=== PATIENT | female | born 1965 | race Caucasian/White ===

== ENCOUNTER → 2016-11-08 | Outpatient (CLI) | payer OTHER ==
[~2016-11-08] MED LIST: BUPR75TA4 PO
[2016-11-08 08:59] LABS: Basophils # (auto) 0.1 uL; Basophils % (auto) 0.8 % (0.0-2.0); Eosinophils # (auto) 0.4 uL; Eosinophils % (auto) 5.1 % (0.0-7.0); Hematocrit 42.1 % (36.0-46.0); Hemoglobin 14.3 g/dL (12.2-16.2); Lymphocytes # (auto) 0.9 uL; Mean Corpuscular Hemoglobin 30.3 pg (28.0-32.0); Mean Corpuscular Volume 89.1 fL (80.0-100.0); Mean Platelet Volume 7.9 fL (7.4-10.4); Monocytes # (auto) 0.6 uL; Monocytes % (auto) 7.6 % (0.0-12.0); Neutrophils # (auto) 5.7 uL; Neutrophils % (auto) 74.5 % (37.0-80.0); Platelet Count (auto) 343 10^3/uL (140-450); Red Cell Distribution Width 12.4 % (11.6-16.0); White Blood Cell 7.6 10^3/uL (4.4-10.8)
[2016-11-08 09:11] LABS: Albumin 3.8 g/dL (3.4-5.0); BUN/Creatinine Ratio 22.4; Bilirubin, Total 0.6 mg/dL (0.2-1.0); Calcium 9.5 mg/dL (8.5-10.1); Potassium 3.9 mmol/L (3.5-5.1); Total Protein 7.6 g/dL (6.4-8.2)
== END | disposition home or self-care (01) ==
LOC: LAB 07:34
PROVIDERS: ATTEND Physician Assistant
DX: N39.0 Urinary tract infection, site not specified (principal); N20.0 Calculus of kidney; R31.9 Hematuria, unspecified; E55.9 Vitamin D deficiency, unspecified
CPT/HCPCS: 36415; 80053; 80061; 82306; 82607; 83036; 84443; 85025; 85049

== ENCOUNTER → 2016-11-10 | Outpatient (CLI) | payer OTHER ==
[2016-11-10 15:06] LABS: Albumin 3.9 g/dL (3.4-5.0); Bilirubin, Direct 0.3 mg/dL (0-0.2); Bilirubin, Total 0.7 mg/dL (0.2-1.0); Total Protein 7.8 g/dL (6.4-8.2)
== END | disposition home or self-care (01) ==
LOC: LAB 14:17
PROVIDERS: ATTEND Physician Assistant
DX: R74.8 Abnormal levels of other serum enzymes (principal); N20.0 Calculus of kidney; N13.30 Unspecified hydronephrosis; E55.9 Vitamin D deficiency, unspecified
CPT/HCPCS: 36415; 80074; 80076

== ENCOUNTER 2018-11-12 13:51 | Emergency (ER) | payer OTHER ==
[~2018-11-12] VITALS: Ht 175.3 cm; Wt 113.4 kg
[2018-11-12 14:00] VITALS: BP 136/68
[2018-11-12 14:33] LABS: Basophils # (auto) 0.1 uL; Basophils % (auto) 1.3 % (0.0-2.0); Eosinophils # (auto) 0.2 uL; Eosinophils % (auto) 3.2 % (0.0-7.0); Hematocrit 41.6 % (36.0-46.0); Hemoglobin 14.2 g/dL (12.2-16.2); Lymphocytes # (auto) 2.1 uL; Lymphocytes % (auto) 27.9 % (10.0-50.0); Mean Corpuscular Hemoglobin 30.2 pg (28.0-32.0); Mean Corpuscular Volume 88.6 fL (80.0-100.0); Monocytes # (auto) 0.5 uL; Monocytes % (auto) 7.1 % (0.0-12.0); Neutrophils # (auto) 4.5 uL; Neutrophils % (auto) 60.5 % (37.0-80.0); Platelet Count (auto) 304 10^3/uL (140-450); Red Blood Cells 4.69 10^6/uL (4.0-5.20); Red Cell Distribution Width 12.6 % (11.8-14.3); White Blood Cell 7.5 10^3/uL (4.4-10.8)
[2018-11-12 14:54] LABS: Albumin 3.5 g/dL (3.4-5.0); Anion Gap 5 (5-15); Blood Urea Nitrogen 15 mg/dL (7-18); Calcium 8.8 mg/dL (8.5-10.1); Carbon Dioxide 27 mmol/L (21-32); Chloride 109 mmol/L (98-107); Glucose 85 mg/dL (74-106); Potassium 3.8 mmol/L (3.5-5.1); Sodium 141 mmol/L (136-145)
[2018-11-12 15:01] LABS: Alanine Aminotransferase 31 U/L (13-56); Alkaline Phosphatase 97 U/L (45-117); Aspartate Aminotransferase 15 U/L (15-37); Bilirubin, Total 0.4 mg/dL (0.2-1.0); GFR African American 86 mL/min; GFR Non-African American 71 mL/min
[2018-11-12] MEDS ORDERED: ASPirin 81 mg TAB PO ONE ×2 (17:15)
== END 2018-11-12 22:33 | disposition left against medical advice (07) ==
LOC: ER 13:51 → MERGE 13:51 → ER 22:33
DX: R07.89 Other chest pain (principal); F17.210 Nicotine dependence, cigarettes, uncomplicated; F41.9 Anxiety disorder, unspecified; Z88.0 Allergy status to penicillin; Z53.29 Procedure and treatment not carried out because of patient's decision for other reasons
CPT/HCPCS: 36415; 71046; 80053; 83735; 84443; 84484; 85025; 85379; 93005; 94761

== ENCOUNTER → 2019-06-29 | Outpatient (CLI) | payer OTHER ==
[2019-06-29 07:48] LABS: Basophils # (auto) 0.1 uL; Basophils % (auto) 1.2 % (0.0-2.0); Eosinophils # (auto) 0.3 uL; Eosinophils % (auto) 5.1 % (0.0-7.0); Hematocrit 41.6 % (36.0-46.0); Hemoglobin 14.3 g/dL (12.2-16.2); Lymphocytes # (auto) 1.3 uL; Lymphocytes % (auto) 23.5 % (10.0-50.0); Mean Corpuscular Hemoglobin 30.8 pg (28.0-32.0); Mean Corpuscular Hgb Conc. 34.5 g/dL (32.0-36.0); Mean Corpuscular Volume 89.3 fL (80.0-100.0); Monocytes # (auto) 0.4 uL; Monocytes % (auto) 7.5 % (0.0-12.0); Neutrophils # (auto) 3.4 uL; Neutrophils % (auto) 62.7 % (37.0-80.0); Nucleated Red Blood Cells % 0.1 %; Platelet Count (auto) 259 10^3/uL (140-450); Red Blood Cells 4.66 10^6/uL (4.0-5.20); White Blood Cell 5.5 10^3/uL (4.4-10.8)
[2019-06-29 08:17] LABS: Potassium 4.9 mmol/L (3.5-5.1)
[2019-06-29 08:27] LABS: Albumin 3.5 g/dL (3.4-5.0); BUN/Creatinine Ratio 15.8; Bilirubin, Total 0.4 mg/dL (0.2-1.0); Calcium 9.2 mg/dL (8.5-10.1)
== END | disposition home or self-care (01) ==
LOC: LAB 07:19
PROVIDERS: ATTEND Physician Assistant
DX: E55.9 Vitamin D deficiency, unspecified (principal); E78.2 Mixed hyperlipidemia; R53.83 Other fatigue; R74.8 Abnormal levels of other serum enzymes; N13.30 Unspecified hydronephrosis; N18.3 Chronic kidney disease, stage 3 (moderate)
CPT/HCPCS: 36415; 80053; 80061; 82306; 85025

== ENCOUNTER → 2020-12-10 | Outpatient (CLI) | payer OTHER ==
[2020-12-10 08:01] LABS: Basophils # (auto) 0.1 10 ^3/uL (0-0.2); Basophils % (auto) 1.1 % (0.0-2.0); Eosinophils # (auto) 0.5 10 ^3/uL (0-0.8); Eosinophils % (auto) 7.7 % (0.0-7.0); Hematocrit 40.7 % (36.0-46.0); Hemoglobin 14.3 g/dL (12.2-16.2); Lymphocytes # (auto) 1.6 10 ^3/uL (0.4-5.4); Lymphocytes % (auto) 24.1 % (10.0-50.0); Mean Corpuscular Hemoglobin 31.1 pg (28.0-32.0); Mean Corpuscular Hgb Conc. 35.2 g/dL (32.0-36.0); Mean Corpuscular Volume 88.3 fL (80.0-100.0); Monocytes # (auto) 0.5 10 ^3/uL (0-1.3); Monocytes % (auto) 8.3 % (0.0-12.0); Neutrophils # (auto) 3.8 10 ^3/uL (1.6-8.6); Neutrophils % (auto) 58.8 % (37.0-80.0); Nucleated Red Blood Cells % 0.1 %; Platelet Count (auto) 266 10^3/uL (140-450); Red Blood Cells 4.61 10^6/uL (4.0-5.20); Red Cell Distribution Width 13.3 % (11.8-14.3); White Blood Cell 6.4 10^3/uL (4.4-10.8)
[2020-12-10 08:29] LABS: Albumin 3.5 g/dL (3.4-5.0); Calcium 8.6 mg/dL (8.5-10.1); Potassium 4.2 mmol/L (3.5-5.1)
[2020-12-10 08:33] LABS: BUN/Creatinine Ratio 19.1; Bilirubin, Total 0.5 mg/dL (0.2-1.0); Total Protein 7.6 g/dL (6.4-8.2)
== END | disposition home or self-care (01) ==
LOC: LAB 07:42
PROVIDERS: ATTEND Physician Assistant
DX: E78.2 Mixed hyperlipidemia (principal); E55.9 Vitamin D deficiency, unspecified; R74.8 Abnormal levels of other serum enzymes; E66.01 Morbid (severe) obesity due to excess calories; N18.30 Chronic kidney disease, stage 3 unspecified
CPT/HCPCS: 36415; 80053; 80061; 82306; 85025

== ENCOUNTER → 2021-09-18 | Outpatient (CLI) | payer OTHER | END | disposition home or self-care (01) | LOC: XY 07:41 | PROVIDERS: ATTEND Internal Medicine | DX: R07.89 Other chest pain (principal); I45.10 Unspecified right bundle-branch block; R60.0 Localized edema; R63.8 Other symptoms and signs concerning food and fluid intake | CPT/HCPCS: 78452; 93017; A9500 ==

== ENCOUNTER 2021-11-30 13:46 | Inpatient (IN) | payer OTHER ==
[~2021-11-30] VITALS: Ht 175.3 cm; Wt 131.5 kg
[2021-11-30 15:05] LABS: Basophils # (auto) 0.1 10 ^3/uL (0-0.2); Basophils % (auto) 1.4 % (0.0-2.0); Eosinophils # (auto) 0.3 10 ^3/uL (0-0.8); Eosinophils % (auto) 3.8 % (0.0-7.0); Hemoglobin 14.1 g/dL (12.2-16.2); Lymphocytes # (auto) 1.8 10 ^3/uL (0.4-5.4); Lymphocytes % (auto) 25.2 % (10.0-50.0); Mean Corpuscular Hemoglobin 30.4 pg (28.0-32.0); Mean Corpuscular Hgb Conc. 34.3 g/dL (32.0-36.0); Mean Corpuscular Volume 88.6 fL (80.0-100.0); Monocytes # (auto) 0.5 10 ^3/uL (0-1.3); Monocytes % (auto) 7.5 % (0.0-12.0); Neutrophils # (auto) 4.4 10 ^3/uL (1.6-8.6); Neutrophils % (auto) 62.1 % (37.0-80.0); Red Blood Cells 4.62 10^6/uL (4.0-5.20); Red Cell Distribution Width 13.3 % (11.8-14.3); White Blood Cell 7.1 10^3/uL (4.4-10.8)
[2021-11-30 15:27] LABS: Albumin 3.7 g/dL (3.4-5.0); Calcium 9.7 mg/dL (8.5-10.1); Potassium 3.6 mmol/L (3.5-5.1)
[2021-11-30 15:34] LABS: Bilirubin, Total 0.4 mg/dL (0.2-1.0); Total Protein 7.3 g/dL (6.4-8.2)
[2021-11-30] MEDS ORDERED: TEMAZEPAM 15 MG CAP PO PRN (22:30)
[2021-11-30] MEDS ORDERED: ONDANSETRON HCL 4 MG/2 ML VIAL IV PRN (22:30)
[2021-11-30] MEDS ORDERED: NITROGLYCERIN 0.4 MG SL TAB SL PRN (22:30)
[2021-11-30] MEDS ORDERED: ACETAMINOPHEN 325 MG TAB PO PRN (22:30)
[2021-12-01] VITALS (7 sets, daily range): BP systolic 102–139; BP diastolic 52–71
[2021-12-01] MEDS: MORPHINE SULFATE INJECTION 2 MG/ML SYRG IV PRN ×2 (02:02→06:32)
[2021-12-01 06:47] LABS: Potassium 3.7 mmol/L (3.5-5.1)
[2021-12-01 06:52] LABS: Basophils # (auto) 0.1 10 ^3/uL (0-0.2); Basophils % (auto) 1.2 % (0.0-2.0); Eosinophils # (auto) 0.3 10 ^3/uL (0-0.8); Eosinophils % (auto) 4.1 % (0.0-7.0); Hematocrit 39.8 % (36.0-46.0); Hemoglobin 13.6 g/dL (12.2-16.2); Lymphocytes # (auto) 1.9 10 ^3/uL (0.4-5.4); Lymphocytes % (auto) 27.9 % (10.0-50.0); Mean Corpuscular Hemoglobin 30.3 pg (28.0-32.0); Mean Corpuscular Hgb Conc. 34.1 g/dL (32.0-36.0); Mean Corpuscular Volume 88.9 fL (80.0-100.0); Monocytes # (auto) 0.5 10 ^3/uL (0-1.3); Neutrophils # (auto) 3.9 10 ^3/uL (1.6-8.6); Neutrophils % (auto) 58.8 % (37.0-80.0); Nucleated Red Blood Cells % 0.1 %; Red Blood Cells 4.48 10^6/uL (4.0-5.20); Red Cell Distribution Width 13.4 % (11.8-14.3); White Blood Cell 6.7 10^3/uL (4.4-10.8)
[2021-12-01 06:55] LABS: BUN/Creatinine Ratio 24.4
[2021-12-01] MEDS: HCTZ 25 MG TAB PO SCH (08:54)
[2021-12-01] MEDS: ASPirin 81 mg TAB PO SCH (08:54)
[2021-12-01] MEDS: PANTOPRAZOLE 40 MG TAB PO SCH (08:55)
[2021-12-01] MEDS: ENOXAPARIN SOD 40 MG/0.4 ML SYRINGE SC SCH (08:55)
[2021-12-01] MEDS: RANOLAZINE ER 500 MG TAB PO SCH ×2 (08:55→22:00)
[2021-12-01] MEDS ORDERED: ATORVASTATIN 20 MG TAB PO SCH (22:00)
[2021-12-02 03:15] LABS: Urine Bacteria NONE SEEN /hpf (None Seen); Urine Blood 2+ /uL (Negative); Urine Hyaline Cast FEW /lpf (0 - 2); Urine Mucus FEW (None Seen); Urine Specific Gravity 1.016 (1.001-1.035); Urine WBC 493 /hpf (0 - 5); Urine WBC Clumps PRESENT /hpf (None Seen)
[2021-12-02 05:16] VITALS: BP 129/56
[2021-12-02 06:02] LABS: Basophils # (auto) 0.1 10 ^3/uL (0-0.2); Basophils % (auto) 1.1 % (0.0-2.0); Eosinophils # (auto) 0.2 10 ^3/uL (0-0.8); Eosinophils % (auto) 3.8 % (0.0-7.0); Hematocrit 42.6 % (36.0-46.0); Hemoglobin 14.2 g/dL (12.2-16.2); Lymphocytes # (auto) 1.7 10 ^3/uL (0.4-5.4); Lymphocytes % (auto) 32.8 % (10.0-50.0); Mean Corpuscular Hemoglobin 29.8 pg (28.0-32.0); Mean Corpuscular Hgb Conc. 33.2 g/dL (32.0-36.0); Mean Corpuscular Volume 89.6 fL (80.0-100.0); Monocytes # (auto) 0.4 10 ^3/uL (0-1.3); Monocytes % (auto) 7.6 % (0.0-12.0); Neutrophils # (auto) 2.9 10 ^3/uL (1.6-8.6); Neutrophils % (auto) 54.7 % (37.0-80.0); Nucleated Red Blood Cells % 0.1 %; Red Blood Cells 4.75 10^6/uL (4.0-5.20); Red Cell Distribution Width 13.3 % (11.8-14.3); White Blood Cell 5.3 10^3/uL (4.4-10.8)
[2021-12-02 06:25] LABS: INR 1.01 (0.9-1.15); Partial Thromboplastin Time 33.9 sec (23.6-33.0)
[2021-12-02 06:35] LABS: Calcium 8.8 mg/dL (8.5-10.1); Potassium 3.8 mmol/L (3.5-5.1)
[2021-12-02 06:38] LABS: BUN/Creatinine Ratio 19.6
[2021-12-02] MEDS: HCTZ 25 MG TAB PO SCH (08:46)
[2021-12-02] MEDS: ASPirin 81 mg TAB PO SCH (08:46)
[2021-12-02] MEDS: RANOLAZINE ER 500 MG TAB PO SCH (08:46)
[2021-12-02 09:00] VITALS: BP 120/90
[2021-12-02] MEDS ORDERED: HEPARIN SODIUM (PORCINE) 5000 UNITS/ML 1ML VIAL ONE (10:01)
[2021-12-02] MEDS ORDERED: ANGIOMAX 250 MG VIAL IV ONE (10:01)
[2021-12-02] MEDS ORDERED: VERAPAMIL 2.5MG/ML INJ 2ML VIAL IV ONE (10:01)
[2021-12-02] MEDS ORDERED: fentaNYL CITRATE 100 MCG/2 ML VL ONE (10:02)
[2021-12-02] MEDS ORDERED: MIDAZOLAM HCL 2MG/2ML 2ml VIAL (1mg/ml) ONE (10:02)
[2021-12-02] MEDS ORDERED: SODIUM CHL 0.9% 0 ML ONE (10:02)
[2021-12-02] MEDS ORDERED: LIDOCAINE 2%HCL (LOCAL ANESTH.) INJ 20ML MDV ONE (10:12)
[2021-12-02 12:01] VITALS: BP 121/54
[2021-12-02] MEDS: ENOXAPARIN SOD 40 MG/0.4 ML SYRINGE SC SCH (12:17)
[2021-12-02] MEDS: PANTOPRAZOLE 40 MG TAB PO SCH (12:17)
[2021-12-02 12:58] VITALS: BP 121/59
[2021-12-02 14:00] VITALS: BP 109/66
[2021-12-02 15:01] VITALS: BP 126/53
[2021-12-02] MEDS ORDERED: ATOR20TA50 PO (17:40)
== END 2021-12-02 19:00 | disposition home or self-care (01) | DRG 287 ==
LOC: ER 13:49 → TELE 22:30 → TELE-WESTW 23:54
PROVIDERS: ADMIT Nurse Practitioner; ATTEND Internal Medicine
PROC: 4A023N7 Measurement of Cardiac Sampling and Pressure, Left Heart, Percutaneous Approach (ICD-10-PCS; principal; 2021-12-02)
PROC: B211YZZ Fluoroscopy of Multiple Coronary Arteries using Other Contrast (ICD-10-PCS; 2021-12-02)
PROC: B215YZZ Fluoroscopy of Left Heart using Other Contrast (ICD-10-PCS; 2021-12-02)
DX: I20.0 Unstable angina (principal); Z68.41 Body mass index [BMI] 40.0-44.9, adult; E66.01 Morbid (severe) obesity due to excess calories; F17.210 Nicotine dependence, cigarettes, uncomplicated; Z20.822 Contact with and (suspected) exposure to COVID-19; I10 Essential (primary) hypertension; Z88.0 Allergy status to penicillin; Z71.3 Dietary counseling and surveillance
CPT/HCPCS: 36415; 71045; 80048; 80053; 81001; 81025; 83880; 84484; 85025; 85379; 85610; 85730; 86850; 86900; 86901; 87426; 93005; 93306; 99152; G0378; J2250

== ENCOUNTER 2022-07-27 06:13 | Day surgery (SDC) | payer OTHER ==
[2022-07-22 11:32] LABS: Basophils # (auto) 0.1 10 ^3/uL (0-0.2); Eosinophils # (auto) 0.3 10 ^3/uL (0-0.8); Eosinophils % (auto) 4.9 % (0.0-7.0); Hematocrit 41.5 % (36.0-46.0); Hemoglobin 13.9 g/dL (12.2-16.2); Lymphocytes # (auto) 1.6 10 ^3/uL (0.4-5.4); Lymphocytes % (auto) 26.6 % (10.0-50.0); Mean Corpuscular Hemoglobin 29.9 pg (28.0-32.0); Mean Corpuscular Hgb Conc. 33.4 g/dL (32.0-36.0); Mean Corpuscular Volume 89.4 fL (80.0-100.0); Monocytes # (auto) 0.6 10 ^3/uL (0-1.3); Monocytes % (auto) 10.3 % (0.0-12.0); Neutrophils # (auto) 3.5 10 ^3/uL (1.6-8.6); Neutrophils % (auto) 57.2 % (37.0-80.0); Red Blood Cells 4.64 10^6/uL (4.0-5.20); White Blood Cell 6.1 10^3/uL (4.4-10.8)
[2022-07-22 11:42] LABS: Urine Bacteria NONE SEEN /hpf (None Seen); Urine Blood 2+ /uL (Negative); Urine Mucus FEW (None Seen); Urine Specific Gravity 1.017 (1.001-1.035); Urine WBC 606 /hpf (0 - 5); Urine WBC Clumps PRESENT /hpf (None Seen)
[2022-07-22 11:50] LABS: Albumin 3.5 g/dL (3.4-5.0); BUN/Creatinine Ratio 19.4; Bilirubin, Total 0.5 mg/dL (0.2-1.0); Calcium 9.2 mg/dL (8.5-10.1); Total Protein 6.8 g/dL (6.4-8.2)
[2022-07-22 12:20] LABS: INR 0.96 (0.9-1.15); Partial Thromboplastin Time 33.6 sec (24.6-33.4)
[~2022-07-27] VITALS: Ht 175.3 cm; Wt 131.5 kg
[~2022-07-27 06:13] MED LIST changes: +ASPI81CH59 PO; +ATOR20TA50 PO; -BUPR75TA4 PO; +CARB1CAP10 PO; +DILT120T8 PO; +IBUP800T27 PO; +MELO1TAB56 PO; +OMEP20TA PO; +RANO1000 PO; +SPIR25TA8 PO
[2022-07-27] MEDS ORDERED: BUPIVACAINE W/ EPINEPH 0.25% INJ 50ML MDV ONE (06:47)
[2022-07-27] MEDS ORDERED: EPINEPHrine HCL 1 MG/1 ML AMP ONE (06:47)
[2022-07-27] MEDS ORDERED: CLINDAMYCIN 900MG IV 50 ML IV ONE (07:12)
[2022-07-27] MEDS ORDERED: SUCCINYLCHOLINE CHLORIDE 20 MG/ML 10ML VIAL IV ONE (07:23)
[2022-07-27] MEDS ORDERED: DOXAPRAM HCL 20 MG/ML 20ML VIAL INJ IV ONE (07:23)
[2022-07-27] MEDS ORDERED: ROCURONIUM 10MG/ML 10ML VIAL IV ONE (07:23)
[2022-07-27] MEDS ORDERED: SODIUM CHLORIDE LOCK 10 ML ONE (07:25)
[2022-07-27] MEDS ORDERED: DexAMETHasone SOD PHOS 10MG/1ML VIAL INJ ONE (07:25)
[2022-07-27] MEDS ORDERED: MIDAZOLAM HCL 2MG/2ML 2ml VIAL (1mg/ml) ONE (07:25)
[2022-07-27] MEDS ORDERED: PROPOFOL 10 MG/ML 20 ML IV ONE (07:25)
[2022-07-27] MEDS ORDERED: fentaNYL CITRATE 100 MCG/2 ML VL ONE (07:25)
[2022-07-27] MEDS ORDERED: ONDANSETRON HCL 4 MG/2 ML VIAL ONE (07:25)
[2022-07-27] MEDS ORDERED: MORPHINE SULFATE 4 MG/ML SYR/VIAL IV PRN (07:45)
[2022-07-27] MEDS ORDERED: METOCLOPRAMIDE HCL 5MG/ml INJ 2ml VIAL IV PRN (07:45)
[2022-07-27] MEDS ORDERED: HYDROmorphone HCL 2 MG/ML VL/or syr IV PRN (07:45)
[2022-07-27] MEDS ORDERED: KETOROLAC TROMETH 60MG/2ML VIAL ONE (08:11)
[2022-07-27] MEDS ORDERED: LIDOCAINE HCL (LOCAL ANESTH.) 0.5 % 50ML MDV IJ ONE (08:56)
[2022-07-27] MEDS: HYDROmorphone HCL 2 MG/ML VL/or syr IV PRN ×4 (09:09→10:04)
[2022-07-27 10:00] VITALS: BP 127/70
== END 2022-07-27 10:22 | disposition home or self-care (01) ==
LOC: SUR 06:13
PROVIDERS: ATTEND Orthopaedic Surgery Sports Medicine
DX: S83.231A Complex tear of medial meniscus, current injury, right knee, initial encounter (principal); S83.281A Other tear of lateral meniscus, current injury, right knee, initial encounter; M17.5 Other unilateral secondary osteoarthritis of knee; M94.261 Chondromalacia, right knee; Z87.891 Personal history of nicotine dependence; F41.9 Anxiety disorder, unspecified; Z98.891 History of uterine scar from previous surgery; X58.XXXA Exposure to other specified factors, initial encounter; Y93.89 Activity, other specified; Y92.89 Other specified places as the place of occurrence of the external cause; Y99.8 Other external cause status
CPT/HCPCS: 29880; 36415; 80053; 81001; 85025; 85610; 85730; J0171; J0330; J1100; J1170; J1885; J2250; J2405; J2704; J3010; J3490; U0003

== ENCOUNTER → 2022-08-27 | Outpatient (CLI) | payer OTHER ==
[2022-08-27 07:40] LABS: Basophils # (auto) 0.1 10 ^3/uL (0-0.2); Basophils % (auto) 0.9 % (0.0-2.0); Eosinophils # (auto) 0.2 10 ^3/uL (0-0.8); Eosinophils % (auto) 3.3 % (0.0-7.0); Hematocrit 41.6 % (36.0-46.0); Hemoglobin 13.8 g/dL (12.2-16.2); Lymphocytes # (auto) 1.5 10 ^3/uL (0.4-5.4); Lymphocytes % (auto) 21.8 % (10.0-50.0); Mean Corpuscular Hemoglobin 30.3 pg (28.0-32.0); Mean Corpuscular Hgb Conc. 33.3 g/dL (32.0-36.0); Mean Corpuscular Volume 91.1 fL (80.0-100.0); Monocytes # (auto) 0.6 10 ^3/uL (0-1.3); Monocytes % (auto) 8.2 % (0.0-12.0); Neutrophils # (auto) 4.5 10 ^3/uL (1.6-8.6); Neutrophils % (auto) 65.8 % (37.0-80.0); Nucleated Red Blood Cells % 0.1 %; Red Blood Cells 4.56 10^6/uL (4.0-5.20); White Blood Cell 6.9 10^3/uL (4.4-10.8)
[2022-08-27 08:04] LABS: Albumin 3.3 g/dL (3.4-5.0); BUN/Creatinine Ratio 19.4; Calcium 9.2 mg/dL (8.5-10.1); Potassium 4.4 mmol/L (3.5-5.1)
[2022-08-27 08:07] LABS: Bilirubin, Total 0.6 mg/dL (0.2-1.0)
== END | disposition home or self-care (01) ==
LOC: LAB 07:27
PROVIDERS: ATTEND Nurse Practitioner Family
DX: Z00.00 Encounter for general adult medical examination without abnormal findings (principal); I10 Essential (primary) hypertension; E66.01 Morbid (severe) obesity due to excess calories
CPT/HCPCS: 36415; 80053; 80061; 85025

== ENCOUNTER 2023-01-24 11:54 | Emergency (ER) | payer OTHER ==
[~2023-01-24] VITALS: Ht 175.3 cm; Wt 136.0 kg
[2023-01-24 13:14] VITALS: BP 151/67
[2023-01-24] MEDS ORDERED: BACDST PO (13:29)
[2023-01-24] MEDS ORDERED: ACET1CAP14 PO (13:29)
[2023-01-24] MEDS ORDERED: ACETAMINOPHEN 500 MG TAB PO ONE (13:30)
[2023-01-24] MEDS ORDERED: TETANUS-DIPTH-ACEL PERTUSSIS 0.5ML SYR Tdap IM ONE (13:30)
== END 2023-01-24 14:05 | disposition home or self-care (01) ==
LOC: ER 11:54
DX: S61.211A Laceration without foreign body of left index finger without damage to nail, initial encounter (principal); I10 Essential (primary) hypertension; E78.5 Hyperlipidemia, unspecified; F17.210 Nicotine dependence, cigarettes, uncomplicated; Z79.82 Long term (current) use of aspirin; Z79.1 Long term (current) use of non-steroidal anti-inflammatories (NSAID); Z79.899 Other long term (current) drug therapy; Z88.0 Allergy status to penicillin; W26.0XXA Contact with knife, initial encounter; Y93.89 Activity, other specified; Y92.89 Other specified places as the place of occurrence of the external cause; Y99.8 Other external cause status
CPT/HCPCS: 12001; 73130; 90471; 90715

== ENCOUNTER → 2023-06-06 | Outpatient (CLI) | payer OTHER ==
[~2023-06-06] MED LIST changes: +ACET1CAP14 PO; +BACDST PO; +CARB1CAP PO; -CARB1CAP10 PO; +IBUP-1456 PO; -IBUP800T27 PO; +MELO-335 PO; -MELO1TAB56 PO
== END | disposition home or self-care (01) ==
LOC: XYW 08:41
PROVIDERS: ATTEND Student in an Organized Health Care Education/Training Program
DX: R07.9 Chest pain, unspecified (principal)
CPT/HCPCS: 93306

== ENCOUNTER → 2023-08-26 | Outpatient (CLI) | payer OTHER ==
[2023-08-26 11:41] LABS: Basophils # (auto) 0.1 10 ^3/uL (0-0.2); Basophils % (auto) 0.7 % (0.0-2.0); Eosinophils # (auto) 0.3 10 ^3/uL (0-0.8); Hematocrit 42.4 % (36.0-46.0); Hemoglobin 14.2 g/dL (12.2-16.2); Lymphocytes # (auto) 1.9 10 ^3/uL (0.4-5.4); Lymphocytes % (auto) 24.8 % (10.0-50.0); Mean Corpuscular Hemoglobin 30.8 pg (28.0-32.0); Mean Corpuscular Hgb Conc. 33.5 g/dL (32.0-36.0); Mean Corpuscular Volume 92.2 fL (80.0-100.0); Monocytes # (auto) 0.8 10 ^3/uL (0-1.3); Monocytes % (auto) 10.1 % (0.0-12.0); Neutrophils # (auto) 4.7 10 ^3/uL (1.6-8.6); Neutrophils % (auto) 60.4 % (37.0-80.0); Red Cell Distribution Width 13.3 % (11.8-14.3); White Blood Cell 7.7 10^3/uL (4.4-10.8)
[2023-08-26 12:14] LABS: Alanine Aminotransferase 42 U/L (7-40); Albumin 4.6 g/dL (3.2-4.8); Alkaline Phosphatase 102 U/L (46-116); Anion Gap 5 (5-15); Aspartate Aminotransferase 19 U/L (13-40); BUN/Creatinine Ratio 17.7 (10.0-20.0); Bilirubin, Total 0.5 mg/dL (0.2-1.0); Blood Urea Nitrogen 17 mg/dL (9-23); Calcium 9.6 mg/dL (8.5-10.1); Carbon Dioxide 28 mmol/L (20-30); Chloride 108 mmol/L (98-107); Cholesterol 175 mg/dL (< 200); Glucose 88 mg/dL (74-106); HDL Cholesterol 39 mg/dL (40-59); LDL Cholesterol 112 mg/dL (< 100); Potassium 4.6 mmol/L (3.5-5.1); Sodium 141 mmol/L (136-145); Triglycerides 249 mg/dL (< 150)
== END | disposition home or self-care (01) ==
LOC: LAB 11:12
PROVIDERS: ATTEND Nurse Practitioner Family
DX: E66.01 Morbid (severe) obesity due to excess calories (principal); I10 Essential (primary) hypertension; E78.5 Hyperlipidemia, unspecified
CPT/HCPCS: 36415; 80053; 80061; 82306; 84439; 84443; 85025

== ENCOUNTER → 2024-04-27 | Outpatient (CLI) | payer OTHER ==
[~2024-04-27] MED LIST changes: -MELO-335 PO; +MELO15TA29 PO
[2024-04-27 10:49] LABS: Basophils # (auto) 0.1 10 ^3/uL (0-0.2); Basophils % (auto) 0.9 % (0.0-2.0); Eosinophils # (auto) 0.3 10 ^3/uL (0-0.8); Eosinophils % (auto) 4.4 % (0.0-7.0); Hematocrit 38.1 % (36.0-46.0); Hemoglobin 13.3 g/dL (12.2-16.2); Lymphocytes # (auto) 1.8 10 ^3/uL (0.4-5.4); Lymphocytes % (auto) 24.5 % (10.0-50.0); Mean Corpuscular Hemoglobin 31.6 pg (28.0-32.0); Mean Corpuscular Volume 90.4 fL (80.0-100.0); Monocytes # (auto) 0.6 10 ^3/uL (0-1.3); Monocytes % (auto) 8.4 % (0.0-12.0); Neutrophils # (auto) 4.6 10 ^3/uL (1.6-8.6); Neutrophils % (auto) 61.8 % (37.0-80.0); Nucleated Red Blood Cells % 0.1 %; Red Blood Cells 4.21 10^6/uL (4.0-5.20); Red Cell Distribution Width 13.8 % (11.8-14.3); White Blood Cell 7.4 10^3/uL (4.4-10.8)
[2024-04-27 11:23] LABS: Alanine Aminotransferase 46 U/L (7-40); Albumin 4.5 g/dL (3.2-4.8); Alkaline Phosphatase 99 U/L (46-116); Anion Gap 5 (5-15); Aspartate Aminotransferase 19 U/L (13-40); BUN/Creatinine Ratio 17.6 (10.0-20.0); Blood Urea Nitrogen 15 mg/dL (9-23); Calcium 9.5 mg/dL (8.5-10.1); Carbon Dioxide 24 mmol/L (20-30); Chloride 111 mmol/L (98-107); Glucose 101 mg/dL (74-106); Potassium 4.1 mmol/L (3.5-5.1); Sodium 140 mmol/L (136-145)
[2024-04-27 11:24] LABS: Bilirubin, Total 0.5 mg/dL (0.2-1.0); Total Protein 6.8 g/dL (5.7-8.2)
[2024-04-27 11:25] LABS: Erythrocyte Sedimentation Rate 12 mm/hr (0-20)
[2024-04-28 08:06] LABS: Complement C3 168 mg/dL (82-167); Rheumatoid Arthritis Factor <10.0 IU/mL (<14.0); Thyroid Peroxidase (TPO) Ab <9 IU/mL (0-34)
[2024-04-28 09:08] LABS: Anti-Nuclear Antibody Direct Negative (Negative); Anti-dsDNA Antibody <1 IU/mL (0-9); Antiscleroderma-70 Antibody <0.2 AI (0.0-0.9); RNP Antibody <0.2 AI (0.0-0.9); Sjogren's Anti-SS-A Antibody <0.2 AI (0.0-0.9); Sjogren's Anti-SS-B Antibody <0.2 AI (0.0-0.9); Smith Antibody <0.2 AI (0.0-0.9)
== END | disposition home or self-care (01) ==
LOC: LAB 10:32
PROVIDERS: ATTEND Nurse Practitioner Family
DX: R21 Rash and other nonspecific skin eruption (principal)
CPT/HCPCS: 36415; 80053; 85025; 85652; 86160; 86225; 86235; 86376; 86431; 87086

== ENCOUNTER → 2024-05-16 | Outpatient (CLI) | payer OTHER | END | disposition home or self-care (01) | LOC: LAB 09:42 | PROVIDERS: ATTEND Nurse Practitioner Family | DX: N39.0 Urinary tract infection, site not specified (principal) | CPT/HCPCS: 87086 ==

== ENCOUNTER 2024-09-23 10:44 | Inpatient (IN) | payer OTHER ==
[~2024-09-23] VITALS: Ht 175.3 cm; Wt 123.3 kg
[~2024-09-23 10:44] MED LIST changes: +OMEP1CAP70 PO; +SEMA2INJ3 SC
[2024-09-23] MEDS ORDERED: KETOROLAC TROMETH 30 MG/ML 1ML VIAL IV ONE (11:00)
[2024-09-23] MEDS ORDERED: ONDANSETRON HCL 4 MG/2 ML VIAL IV ONE (11:00)
--- NOTE | 2024-09-23 11:03 | ED.PDOC ---
Musculoskeletal HPI Comments 58 year old female presents to the ED with chief complaint of leg swelling and pain. Patient reports she has been experience right lower leg swelling and pain, radiating down to her foot for the past week. Patient relays that she has history of varicose veins to bilateral legs, but has only had a procedure to remove some from the left leg. Patient states she has associated symptoms of headache and nausea. Patient notes she has history of Lupus, but this is not like any flare up she has had in the past. Patient denies any fall, injury, numbness, weakness, fever, chills, or SOB. Chief Complaint: Lower Extremity Time Seen by MD: 10:59 Primary Care Provider: jones Reviewed Notes: Nurses Notes, Medications, Allergies Allergies: Coded Allergies: Penicillins (Unverified Allergy, Unknown, 09/13/16) Home Meds Active Scripts Acetaminophen (Tylenol) 325 Mg Cap, 325 MG PO Q4HPRN PRN, #30 CAP 0 Refills Take 1-2 caps po q4h prn for pain. (Do not exceed 3,000mg of acetaminophen in 24 hours) Prov:[facility] 01/24/23 Sulfamethoxazole W/Trimethopri (Bactrim Ds Tablet) 1 Tab Tb, 1 TAB PO BID for 7 Days, #14 TAB 0 Refills Prov:[facility] 01/24/23 Atorvastatin Calcium (ATORVASTATIN CALCIUM) 20 Mg Tab, 20 MG PO HS for 30 Days, #30 TAB Prov:KEERTHI ALMANZAR MD 12/02/21 Reported Medications Spironolactone (Spironolactone) 25 Mg Tab, 25 MG PO DAILY, TAB 07/22/22 Omeprazole (Gnp Omeprazole) 20 Mg Tab, 20 MG PO DAILY, TAB 07/22/22 Ibuprofen (Ibuprofen) 800 Mg Tab, 800 MG PO Q8HP, TAB 07/22/22 Diltiazem Hcl (Cardizem) 120 Mg Tab, 120 MG PO DAILY, TAB 07/22/22 Carboxymethylcellulose-Cellulo (Plenity) 1 Cap Cap, 3 CAP PO AC, CAP 07/22/22 Meloxicam (Meloxicam) 15 Mg Tab, 15 MG PO DAILY, TAB 07/22/22 Aspirin (Aspirin Low Dose) 81 Mg Chw, 81 MG PO DAILY, TAB.CHEW 07/22/22 Ranolazine (Ranexa) 1,000 Mg Tab, 1000 MG PO BID, TAB 07/22/22 Information Source: Patient Mode of Arrival: Ambulatory Location: Right Extremity Location: Leg Timing: Weeks Prehospital treatment: None Severity: Moderate Able to Move Extremity: Yes Bear Weight: Fully Pain: Moderate Mechanism: Spontaneous Circumstances: Spontaneous Onset of Symptoms: Spontaneous Symptoms: Swelling, Pain DVT Risk Factors: NONE Last Tetanus: Unknown Associated signs and symptoms: Swelling, Leg pain Past Medical History PAST MEDICAL HISTORY: Arthritis, High Lipids, HTN Past Medical History (Other): Lupus Surgical History: Surgical History (Other): 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 left leg 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: 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 Family History Family History: Reviewed,noncontributory to illness Family History (Other): DVT Social History Smoker: Cigarettes Alcohol: Occasionally Drugs: Denies Drug Use Lives In: Home Constitutional: denies: chills, diaphoresis, fatigue, fever, malaise, sweats, weakness, others EENTM: denies: blurred vision, double vision, ear bleeding, ear discharge, ear drainage, ear pain, ear ringing, eye pain, eye redness, hearing loss, mouth pain, mouth swelling, nasal discharge, nose bleeding, nose congestion, nose pain, photophobia, tearing, throat pain, throat swelling, voice changes, others Respiratory: denies: cough, hemoptysis, orthopnea, SOB at rest, shortness of breath, SOB with excertion, stridor, wheezing, others Cardiovascular: denies: chest pain, dizzy spells, diaphoresis, Dyspnea on exertion, edema, irregular heart beat, left arm pain, lightheadedness, palpitations, PND, syncope, others Gastrointestinal: denies: abdomen distended, abdominal pain, blood streaked bowels, constipated, diarrhea, dysphagia, difficulty swallowing, hematemesis, melena, nausea, poor appetite, poor fluid intake, rectal bleeding, rectal pain, vomiting, others Genitourinary: denies: abnormal vagina bleeding, burning, dyspareunia, dysuria, flank pain, frequency, hematuria, incontinence, pain, , vagina discharge, urgency, others Neurological: denies: dizziness, fainting, headache, left sided numbness, left sided weakness, numbness, paresthesia, pre-existing deficit, right sided numbness, right sided weakness, seizure, speech problems, tingling, tremors, weakness, others Musculoskeletal: reports: others (Right lower leg swelling and pain); denies: back pain, gout, joint pain, joint swelling, muscle pain, muscle stiffness, neck pain Integumetry: denies: bruises, change in color, change in hair/nails, dryness, laceration, lesions, lumps, rash, wounds, others Allergic/Immunocompromised: denies: Difficulty Healing, Frequent Infections, Hives, Itching, others Hematologic/Lymphatic: denies: anemia, blood clots, easy bleeding, easy bruising, swollen glands, others Endocrine: denies: excessive hunger, excessive sweating, excessive thirst, excessive urination, flushing, intolerance to cold, intolerance to heat, unexplained weight gain, unexplained weight loss, others Psychiatric: denies: anxiety, bipolar disorder, depression, hopeless, panic disorder, schizophrenia, sleepless, suicidal, others All Other Systems: Reviewed and Negative Physical Exam General Appearance: Mild Distress, Obese HEENT: Other (Pupils symmetric, no facial asymmetry, moist mucous membranes) Neck: Full Range of Motion, Normal Inspection Respiratory: Lungs Clear, No Accessory Muscle Use, No Respiratory Distress, Normal Breath Sounds Cardiovascular: No JVD, Regular Rate/Rhythm Breast Exam: Deferred Gastrointestinal: Non Tender, Soft Genitalia: Deferred Pelvic: Deferred Rectal: Deferred Extremities: Normal capillary refill, Normal range of motion, Pedal edema (Bilateral, right greater than left), Other (Right leg prominent varicosities medial aspect with soft tissue tenderness. No erythema.) Musculoskeletal : Apperance: Normal Neurologic: Alert (Oriented x4), Normal Affect, Normal Mood, Other (Ambulatory without difficulty. No gross focal deficit.) Cerebellar Function: NOT DONE Reflexes: NOT DONE Skin: Dry, Normal Color, Warm Lymphatic: NOT DONE Was a procedure done? Was a procedure done?: No Differential Diagnosis EXT Differential Diagnosis: Cellulitis, Deep Vein Thrombosis Other Differential Diagnosis Superficial phlebitis, CHF, liver disease, hypovolemia, venous insufficiency, among others X-Ray, Labs, Meds, VS Vital Signs Date Time Temp Pulse Resp B/P (MAP) Pulse Ox O2 Delivery O2 Flow Rate FiO2 09/23/24 12:51 74 15 98 Room Air* 0 21 09/23/24 10:56 97.7 62 19 155/87 (109) 100 Lab Test 09/23/24 11:23 Range/Units White Blood Count 7.9 4.4-10.8 10^3/uL Red Blood Count 4.63 4.0-5.20 10^6/uL Hemoglobin 14.5 12.2-16.2 g/dL Hematocrit 41.9 36.0-46.0 % Mean Corpuscular Volume 90.4 80.0-100.0 fL Mean Corpuscular Hemoglobin 31.3 28.0-32.0 pg Mean Corpuscular Hemoglobin Concent 34.6 32.0-36.0 g/dL Red Cell Distribution Width 13.8 11.8-14.3 % Platelet Count 252 140-450 10^3/uL Mean Platelet Volume 7.6 6.9-10.8 fL Neutrophils (%) (Auto) 67.9 37.0-80.0 % Lymphocytes (%) (Auto) 19.5 10.0-50.0 % Monocytes (%) (Auto) 8.8 0.0-12.0 % Eosinophils (%) (Auto) 2.9 0.0-7.0 % Basophils (%) (Auto) 0.9 0.0-2.0 % Neutrophils # (Auto) 5.3 1.6-8.6 10 ^3/uL Lymphocytes # (Auto) 1.5 0.4-5.4 10 ^3/uL Monocytes # (Auto) 0.7 0-1.3 10 ^3/uL Eosinophils # (Auto) 0.2 0-0.8 10 ^3/uL Basophils # (Auto) 0.1 0-0.2 10 ^3/uL Nucleated Red Blood Cells 0.0 % Prothrombin Time 10.9 9.3-11.8 sec Prothrombin Time INR 1.03 0.9-1.15 Activated Partial Thromboplast Time 28.3 24.5-34.5 SEC Sodium Level 142 136-145 mmol/L Potassium Level 4.0 3.5-5.1 mmol/L Chloride Level 106 98-107 mmol/L Carbon Dioxide Level 30 20-31 mmol/L Anion Gap 6 5-15 Blood Urea Nitrogen 13 9-23 mg/dL Creatinine 0.86 0.550-1.02 mg/dL Glomerular Filtration Rate Calc 77 >90 mL/min BUN/Creatinine Ratio 15.1 10.0-20.0 Serum Glucose 92 74-106 mg/dL Calcium Level 10.4 8.7-10.4 mg/dL Troponin I High Sensitivity 9 </=34 ng/L B-Type Natriuretic Peptide 144.73 0-100 pg/mL Current Medications Medications (Trade) Dose Ordered Sig/Vince Route Start Time Stop Time Status Last Admin Ketorolac Tromethamine (Toradol Injection) 60 mg ONCE ONCE IM 09/23/24 13:00 09/23/24 13:01 DC 09/23/24 13:03 Ondansetron HCl (Zofran) 4 mg ONCE ONCE IM 09/23/24 13:00 09/23/24 13:01 DC 09/23/24 13:03 Rt Lower DVT US: Findings: The common femoral vein demonstrates appropriate compressibility and waveform variability. There is compressibility/patency of the great saphenous vein at the proximal thigh. The femoral vein demonstrates appropriate compressibility and waveform variability. The deep femoral vein demonstrates appropriate compressibility and waveform variability. The popliteal vein demonstrates appropriate compressibility and waveform variability. There is normal compressibility at the tibioperoneal trunk. Impression: 1. No right femoropopliteal venous thrombosis. Chest XR: FINDINGS: Lines and Tubes: None Lungs: Questionable mild interstitial pulmonary edema. Pleura: No effusion. No pneumothorax. Cardiomediastinal contours: Mild cardiomegaly Bones: Unremarkable IMPRESSION: 1. Questionable mild interstitial pulmonary edema. X-Ray, Labs, Meds, VS Comment 58-year-old female with a history of SLE hypertension and hyperlipidemia complaining of right lower extremity pain and swelling. Vitals remarkable for BP 155/87 Exam remarkable for right lower extremity tender varicosities, right greater than left lower extremity pitting edema Rhythm strip independently interpreted by me: Sinus rhythm, rate 76, no ectopy. Chest x-ray IMPRESSION: 1. Questionable mild interstitial pulmonary edema. Venous Doppler right lower extremity: No DVT CBC, basic metabolic panel, coagulation panel and 2 serial troponins unremarkable BNP indeterminate: 144.73 Patient treated with the following in the ED: Toradol 60 mg IM, Zofran ODT 4 mg p.o., Lasix 40 mg IV On re-evaluation, patient stated pain had improved. Vitals were stable. Patient has no known history of CHF. Exam findings and chest x-ray findings are concerning for new onset CHF. Plan is to admit the patient for Cardiology evaluation and diuresis. Images Reviewed?: Images reviewed and evaluated by me Time of 1ST Reevaluation: 11:59 Reevaluation 1ST: Unchanged Patient Education/Counseling: Diagnosis, Treatment Family Education/Counseling: No Family Present Departure 1 Departure Time of Disposition: 13:31 Impression: Primary Impression: Superficial phlebitis Additional Impression: CHF (congestive heart failure) Qualified Codes: I50.9 - Heart failure, unspecified Disposition: 09 ADMITTED INPATIENT Admit to: Tele Condition: Guarded Critical Care Note Critical Care Time?: No Stability Stability form required: No Heart Score Heart Score: Heart Score Response (Comments) Value History N/A 0 EKG N/A 0 Age N/A 0 Risk Factors N/A 0 Troponin N/A 0 Total 0 I personally scribed for ELADIA STARK MD ([email or web address]) on 09/23/24 at 11:03. Electronically submitted by Mikhail Talley ([email or web address]). I personally scribed for ELADIA STARK MD ([email or web address]) on 09/23/24 at 11:40. Electronically submitted by Mikhail Talley ([email or web address]). I personally scribed for ELADIA STARK MD ([email or web address]) on 09/23/24 at 12:19. Electronically submitted by Mikhail Talley ([email or web address]). ELADIA STARK MD Sep 23, 2024 11:03
[2024-09-23 11:35] LABS: Basophils # (auto) 0.1 10 ^3/uL (0-0.2); Basophils % (auto) 0.9 % (0.0-2.0); Eosinophils # (auto) 0.2 10 ^3/uL (0-0.8); Eosinophils % (auto) 2.9 % (0.0-7.0); Hematocrit 41.9 % (36.0-46.0); Hemoglobin 14.5 g/dL (12.2-16.2); Lymphocytes # (auto) 1.5 10 ^3/uL (0.4-5.4); Lymphocytes % (auto) 19.5 % (10.0-50.0); Mean Corpuscular Hemoglobin 31.3 pg (28.0-32.0); Mean Corpuscular Hgb Conc. 34.6 g/dL (32.0-36.0); Mean Corpuscular Volume 90.4 fL (80.0-100.0); Monocytes # (auto) 0.7 10 ^3/uL (0-1.3); Monocytes % (auto) 8.8 % (0.0-12.0); Neutrophils # (auto) 5.3 10 ^3/uL (1.6-8.6); Neutrophils % (auto) 67.9 % (37.0-80.0); Platelet Count (auto) 252 10^3/uL (140-450); Red Blood Cells 4.63 10^6/uL (4.0-5.20); Red Cell Distribution Width 13.8 % (11.8-14.3); White Blood Cell 7.9 10^3/uL (4.4-10.8)
--- NOTE | 2024-09-23 11:38 | DVH ---
Right lower extremity venous duplex Clinical History: RLE pain, swelling Comparison: None Technique: Duplex Doppler evaluation of the deep venous system of the right lower extremity from the common femo ral vein to the popliteal vein including color Doppler and spectral/pulsed waveform analysis was perf ormed. Findings: The common femoral vein demonstrates appropriate compressibility and waveform variability. There is compressibility/patency of the great saphenous vein at the proximal thigh. The femoral vein demonstrates appropriate compressibility and waveform variability. The deep femoral vein demonstrates appropriate compressibility and waveform variability. The popliteal vein demonstrates appropriate compressibility and waveform variability. There is normal compressibility at the tibioperoneal trunk. Impression: 1. No right femoropopliteal venous thrombosis.
[2024-09-23 11:41] LABS: Chloride 106 mmol/L (98-107); Sodium 142 mmol/L (136-145)
[2024-09-23 11:42] LABS: Anion Gap 6 (5-15); Calcium 10.4 mg/dL (8.7-10.4); Carbon Dioxide 30 mmol/L (20-31)
[2024-09-23 11:46] LABS: INR 1.03 (0.9-1.15); Partial Thromboplastin Time 28.3 SEC (24.5-34.5); Prothrombin Time 10.9 sec (9.3-11.8)
[2024-09-23 11:47] LABS: BUN/Creatinine Ratio 15.1 (10.0-20.0); Blood Urea Nitrogen 13 mg/dL (9-23); Glucose 92 mg/dL (74-106)
--- NOTE | 2024-09-23 12:17 | DVH ---
CHEST RADIOGRAPH Indication: edema Technique: Single frontal view of the chest was obtained COMPARISON: CHEST PORTABLE on DOS: 11/30/21 FINDINGS: Lines and Tubes: None Lungs: Questionable mild interstitial pulmonary edema. Pleura: No effusion. No pneumothorax. Cardiomediastinal contours: Mild cardiomegaly Bones: Unremarkable IMPRESSION: 1. Questionable mild interstitial pulmonary edema.
[2024-09-23 12:51] VITALS: PULSE 74; RESP 15; O2SAT 98
[2024-09-23] MEDS: KETOROLAC TROMETH 60MG/2ML VIAL IM ONE (13:03)
[2024-09-23] MEDS: ONDANSETRON HCL 4 MG/2 ML VIAL IM ONE (13:03)
[2024-09-23] MEDS: FUROSEMIDE 40 MG/4 ML VIAL IV ONE (14:51)
[2024-09-23] MEDS ORDERED: ACETAMINOPHEN 325 MG TAB PO PRN (15:00)
[2024-09-23] MEDS ORDERED: MORPHINE SULFATE INJ 2 MG/ml SYRG IV PRN (15:00)
[2024-09-23] MEDS ORDERED: ONDANSETRON HCL 4 MG/2 ML VIAL IV PRN ×2 (15:00)
[2024-09-23] MEDS ORDERED: HYDR200T36 PO (15:16)
[2024-09-23] MEDS ORDERED: HYDR25TA5 PO (15:16)
[2024-09-23] MEDS ORDERED: RANO500T3 PO (15:16)
--- NOTE | 2024-09-23 15:18 | DVHHP2 ---
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 Patient reports that she was camping and [place] when this pain and swelling started in her right lower extremity. She reports that she has had varicose veins removed in her left leg in the past. Patient reports that when she walks pain is present in when she rests pain is still present but is less painful. Patient denies any trauma or injury to the lower extremities, chest pain, shortness of breath, wheezing, nausea, vomiting, and diarrhea. Cardiovascular: HTN, hyperipidemia Rheumatologic: Other (Arthritis and lupus) Family History Mom Has heart disease Smoke: No ALCOHOL: none Drugs: None Lives: with Family Domestic Violence: Neg Review of Systems Constitutional: No: Fever, Chills, Sweats, Weakness, Malaise, Other Eyes: No: Pain, Vision change, Conjunctivae inflammation, Eyelid inflammation, Other, Redness ENT: No: Ear pain, Ear discharge, Nose pain, Nose discharge, Nose congestion, Mouth pain, Mouth swelling, Throat pain, Throat swelling, Other Respiratory: No: Cough, Dry, Shortness of breath, SOB with excertion, Wheezing, Hemoptysis, Pleuritic Pain, Sputum, Wheezing, Other Cardiovascular: No: Chest Pain, Palpitations, Orthopnea, Paroxysmal Noc. Dyspnea, Edema, Lt Headedness, Other Gastrointestinal: No: Nausea, Vomiting, Abdominal Pain, Diarrhea, Constipation, Melena, Hematochezia, Other Genitourinary: No Dysuria, No Frequency, No Incontinence, No Hematuria, No Retention, No Other Musculoskeletal: leg pain; No: other, neck pain, shoulder pain, arm pain, back pain, hand pain, foot pain Skin: Other (varicose veins); No: Rash, Lesions, Jaundice, Bruising Neurological: No: Weakness, Numbness, Incoordination, Change in speech, Confusion, Seizures, Other Allergies: Coded Allergies: Penicillins (Unverified Allergy, Unknown, 09/13/16) Exam Vital Signs Vital Signs Date Time Temp Pulse Resp B/P (MAP) Pulse Ox O2 Delivery O2 Flow Rate FiO2 09/23/24 12:51 74 15 98 Room Air* 0 21 09/23/24 10:56 97.7 155/87 (109) General Appearance: Oriented X3, Cooperative, No acute distress HEENT: Atraumatic, PERRLA, EOMI, Mucous membr. moist/pink Respiratory: Normal air movement Cardiovascular: Regular rate, Normal S1, Normal S2, No murmurs Abdominal: Normal bowel sounds, Soft, No tenderness, No hepatospenomegaly, No masses Extremities: No clubbing, No cyanosis, Normal pulses Skin: No rashes, No breakdown, No significant lesion Neuro: Normal gait, Normal speech, Strength at 5/5 X4 ext, Normal tone, Sensation intact Psych/Mental Status: Mental status NL, Mood NL Labs/Xrays Labs Test 09/23/24 13:06 09/23/24 11:23 Range/Units Troponin I High Sensitivity 9 </=34 ng/L White Blood Count 7.9 4.4-10.8 10^3/uL Red Blood Count 4.63 4.0-5.20 10^6/uL Hemoglobin 14.5 12.2-16.2 g/dL Hematocrit 41.9 36.0-46.0 % Mean Corpuscular Volume 90.4 80.0-100.0 fL Mean Corpuscular Hemoglobin 31.3 28.0-32.0 pg Mean Corpuscular Hemoglobin Concent 34.6 32.0-36.0 g/dL Red Cell Distribution Width 13.8 11.8-14.3 % Platelet Count 252 140-450 10^3/uL Mean Platelet Volume 7.6 6.9-10.8 fL Neutrophils (%) (Auto) 67.9 37.0-80.0 % Lymphocytes (%) (Auto) 19.5 10.0-50.0 % Monocytes (%) (Auto) 8.8 0.0-12.0 % Eosinophils (%) (Auto) 2.9 0.0-7.0 % Basophils (%) (Auto) 0.9 0.0-2.0 % Neutrophils # (Auto) 5.3 1.6-8.6 10 ^3/uL Lymphocytes # (Auto) 1.5 0.4-5.4 10 ^3/uL Monocytes # (Auto) 0.7 0-1.3 10 ^3/uL Eosinophils # (Auto) 0.2 0-0.8 10 ^3/uL Basophils # (Auto) 0.1 0-0.2 10 ^3/uL Nucleated Red Blood Cells 0.0 % Prothrombin Time 10.9 9.3-11.8 sec Prothrombin Time INR 1.03 0.9-1.15 Activated Partial Thromboplast Time 28.3 24.5-34.5 SEC Sodium Level 142 136-145 mmol/L Potassium Level 4.0 3.5-5.1 mmol/L Chloride Level 106 98-107 mmol/L Carbon Dioxide Level 30 20-31 mmol/L Anion Gap 6 5-15 Blood Urea Nitrogen 13 9-23 mg/dL Creatinine 0.86 0.550-1.02 mg/dL Glomerular Filtration Rate Calc 77 >90 mL/min BUN/Creatinine Ratio 15.1 10.0-20.0 Serum Glucose 92 74-106 mg/dL Calcium Level 10.4 8.7-10.4 mg/dL B-Type Natriuretic Peptide 144.73 0-100 pg/mL Right lower extremity venous duplex Clinical History: RLE pain, swelling Comparison: None Technique: Duplex Doppler evaluation of the deep venous system of the right lower extremity from the common femoral vein to the popliteal vein including color Doppler and spectral/pulsed waveform analysis was performed. Findings: The common femoral vein demonstrates appropriate compressibility and waveform variability. There is compressibility/patency of the great saphenous vein at the proximal thigh. The femoral vein demonstrates appropriate compressibility and waveform variability. The deep femoral vein demonstrates appropriate compressibility and waveform variability. The popliteal vein demonstrates appropriate compressibility and waveform variability. There is normal compressibility at the tibioperoneal trunk. Impression: 1. No right femoropopliteal venous thrombosis. CHEST RADIOGRAPH Indication: edema Technique: Single frontal view of the chest was obtained COMPARISON: CHEST PORTABLE on DOS: 11/30/21 FINDINGS: Lines and Tubes: None Lungs: Questionable mild interstitial pulmonary edema. Pleura: No effusion. No pneumothorax. Cardiomediastinal contours: Mild cardiomegaly Bones: Unremarkable IMPRESSION: 1. Questionable mild interstitial pulmonary edema. Assessment/Plan Assessment/Plan #RLE Edema R/O PAD bilateral arterial duplex RLE venous duplex negative admit to med surge # Possibly mild interstitial pulmonary edema # Cardiomegaly CXR #HTN HCTZ diltiazem #HLD statin asa #Lupus hydrochloroquine #Arthritis meloxicam Ibuprofen #Morbid obesity weight loss medication Counseled on diet, exercise, lifestyle modifications DVT ppx Discussed plan of care with patient and RN Home medications reconciled Plan discussed with: Patient Date of Service: Sep 23, 2024 Billing Provider: INDIRA PRO Common Visit Codes: 52376-QIGSXIC INP/OBS CARE (MOD) INDIRA PRO Sep 23, 2024 15:18
--- NOTE | 2024-09-23 16:27 | DVH ---
Bilateral Lower Extremity Arterial Duplex Clinical History: R/O PAD Comparison: None Technique: Duplex Doppler evaluation including color Doppler and spectral/pulsed waveform analysis of the lower extremity arteries was performed. Findings: RIGHT: Peak systolic velocities are as follows: SECRETARY TO THE VICE PRESIDENT 110 cm/s Deep femoral 84 cm/s SFA proximal 105 cm/s SFA mid-portion 120 cm/s SFA distal 92 cm/s Popliteal 92 cm/s Posterior tibial 86 cm/s Dorsalis pedis 79 cm/s The waveforms are triphasic with diastolic flow. LEFT: Peak systolic velocities are as follows: SECRETARY TO THE VICE PRESIDENT 147 cm/s Deep femoral 69 cm/s SFA proximal 111 cm/s SFA mid-portion 89 cm/s SFA distal 118 cm/s Popliteal 94 cm/s Posterior tibial 92 cm/s Dorsalis pedis 77 cm/s The waveforms are triphasic with diastolic flow. IMPRESSION: 1. No hemodynamically significant stenosis based on peak systolic velocity criteria. REFERENCE VALUES, [facility] ([facility]) vascular Imaging Lab Criteria: Peak systolic velocity ranges (in cm/sec) are as follows: <150 cm/s - <20 % stenosis 150-200 cm/s - 20-49% stenosis 200-300 cm/s - 50-75% stenosis >300 cm/s -> 75% stenosis
[2024-09-23 22:20] VITALS: BP 144/77; PULSE 116; RESP 18; TEMP 97.9; O2SAT 96
[2024-09-23] MEDS: IBUPROFEN 800 MG TAB PO SCH (23:02)
[2024-09-23] MEDS: ATORVASTATIN 20 MG TAB PO SCH (23:02)
[2024-09-24] VITALS (7 sets, daily range): BP systolic 102–139; BP diastolic 53–84; PULSE 83–124; RESP 17–19; TEMP 97.1–97.7; O2SAT 94–100
[2024-09-24 06:02] LABS: Basophils # (auto) 0.1 10 ^3/uL (0-0.2); Basophils % (auto) 0.8 % (0.0-2.0); Eosinophils # (auto) 0.3 10 ^3/uL (0-0.8); Eosinophils % (auto) 4.3 % (0.0-7.0); Hematocrit 39.3 % (36.0-46.0); Hemoglobin 13.8 g/dL (12.2-16.2); Lymphocytes # (auto) 1.5 10 ^3/uL (0.4-5.4); Lymphocytes % (auto) 23.6 % (10.0-50.0); Mean Corpuscular Hemoglobin 31.4 pg (28.0-32.0); Mean Corpuscular Hgb Conc. 35.2 g/dL (32.0-36.0); Mean Corpuscular Volume 89.3 fL (80.0-100.0); Monocytes # (auto) 0.5 10 ^3/uL (0-1.3); Monocytes % (auto) 8.4 % (0.0-12.0); Neutrophils % (auto) 62.9 % (37.0-80.0); Nucleated Red Blood Cells % 0.1 %; Platelet Count (auto) 227 10^3/uL (140-450); Red Cell Distribution Width 13.7 % (11.8-14.3); White Blood Cell 6.3 10^3/uL (4.4-10.8)
[2024-09-24 06:08] LABS: Alkaline Phosphatase 74 U/L (46-116); Anion Gap 9 (5-15); BUN/Creatinine Ratio 18.3 (10.0-20.0); Blood Urea Nitrogen 15 mg/dL (9-23); Calcium 9.9 mg/dL (8.7-10.4); Carbon Dioxide 26 mmol/L (20-31); Chloride 107 mmol/L (98-107); Glucose 94 mg/dL (74-106); Potassium 3.8 mmol/L (3.5-5.1); Sodium 142 mmol/L (136-145)
[2024-09-24 06:09] LABS: Albumin 4.2 g/dL (3.2-4.8); Aspartate Aminotransferase 13 U/L (13-40); Bilirubin, Total 0.6 mg/dL (0.2-1.0); Total Protein 6.4 g/dL (5.7-8.2)
[2024-09-24 06:32] LABS: Alanine Aminotransferase 42 U/L (7-40)
[2024-09-24] MEDS: PANTOPRAZOLE 40 MG TAB PO SCH (09:53)
[2024-09-24] MEDS: dilTIAZem 120MG ER CAP PO SCH (09:54)
[2024-09-24] MEDS: ASPirin 81 mg TAB PO SCH (09:55)
[2024-09-24] MEDS: SPIRONOLACTONE 25 MG TAB PO SCH (09:55)
[2024-09-24] MEDS: Meloxicam 15 MG PO SCH (09:58)
--- NOTE | 2024-09-24 11:30 | DVHPN2 ---
Subjective The patient is seen and examined at bedside. Reviewed: Care Plan, H&P, Labs, Medications, Previous Orders, Radiology Changes from previous H/P or p: No Changes Eyes: No Pain, No Vision change, No Conjunctivae inflammation, No Eyelid inflammation, No Other, No Redness ENT: No Ear pain, No Ear discharge, No Nose pain, No Nose discharge, No Nose congestion, No Mouth pain, No Mouth swelling, No Throat pain, No Throat swelling, No Other Cardiovascular: No Chest Pain, No Palpitations, No Orthopnea, No Paroxysmal Noc. Dyspnea, No Edema, No Lt Headedness, No Other Respiratory: No Cough, No Dry, No Shortness of breath, No SOB with excertion, No Wheezing, No Hemoptysis, No Pleuritic Pain, No Sputum, No Other Gastrointestinal: No Nausea, No Vomiting, No Abdominal Pain, No Diarrhea, No Constipation, No Melena, No Hematochezia, No Other Genitourinary: No Dysuria, No Frequency, No Incontinence, No Hematuria, No Retention, No Other Musculoskeletal: No other, No neck pain, No shoulder pain, No arm pain, No back pain, No hand pain; leg pain; No foot pain Skin: No Rash, No Lesions, No Jaundice, No Bruising; Other (varicose veins) Objective Vitals Vital Signs Date Time Temp Pulse Resp B/P (MAP) Pulse Ox O2 Delivery O2 Flow Rate FiO2 09/24/24 09:54 104 126/84 09/24/24 09:04 97.5 18 95 97.5 09/24/24 08:00 Room Air* 0 21 Intake/Output Intake and Output 09/24/24 07:00 Intake Total 150 ml Balance 150 ml Intake Oral 150 ml General Appearance: Alert, Cooperative, No acute distress HEENT: Atraumatic, PERRLA, EOMI, Mucous membr. moist/pink Neck: Supple Lungs: Clear to auscultation, Normal air movement Cardiovascular: Regular rate, Normal S1, Normal S2, No murmurs, Gallops, Rubs Abdomen: Normal bowel sounds, Soft, No tenderness, No hepatospenomegaly Neuro: Cranial nerves 3-12 NL Psych/Mental Status: Mental status NL Medications Current Medications Medications Dose Ordered Sig/Vince Route Start Time Stop Time Status Last Admin Dose Admin Acetaminophen/ Hydrocodone Bitart 1 tab Q4HP PRN PO 09/23/24 15:00 Ondansetron HCl 4 mg Q4HP PRN IV 09/23/24 15:00 Docusate Sodium 100 mg BIDPRN PRN PO 09/23/24 15:00 Acetaminophen 650 mg Q6HP PRN PO 09/23/24 15:00 Morphine Sulfate 2 mg Q4HPRN PRN IV 09/23/24 15:00 Atorvastatin Calcium 20 mg HS PO 09/23/24 22:00 09/23/24 23:02 20 MG Ibuprofen 800 mg Q8HP PO 09/23/24 22:00 09/24/24 05:06 800 MG Spironolactone 25 mg DAILY PO 09/24/24 10:00 09/24/24 09:55 25 MG Aspirin 81 mg DAILY PO 09/24/24 10:00 09/24/24 09:55 81 MG Diltiazem HCl 120 mg DAILY PO 09/24/24 10:00 09/24/24 09:54 120 MG Patient Own Medication 15 mg DAILY PO 09/24/24 10:00 Pantoprazole Sodium 40 mg DAILY PO 09/24/24 10:00 09/24/24 09:53 40 MG Laboratory Results Laboratory Tests 09/24/24 05:10 Chemistry Test 09/24/24 05:10 Albumin 4.2 g/dL (3.2-4.8) Calcium Level 9.9 mg/dL (8.7-10.4) Total Protein 6.4 g/dL (5.7-8.2) LFT Test 09/24/24 05:10 Alanine Aminotransferase (ALT) 42 U/L (7-40) H Alkaline Phosphatase 74 U/L (46-116) Aspartate Amino Transferase (AST) 13 U/L (13-40) Total Bilirubin 0.6 mg/dL (0.2-1.0) Labs and/or images reviewed: Labs reviewed by me Assessment/Plan Assessment/Plan #RLE Edema and painR/O PAD bilateral arterial duplex show No hemodynamically significant stenosis based on peak systolic velocity criteria. RLE venous duplex negative # Varicocele bea insufficiency: Need outpatient evaluation # Possibly mild interstitial pulmonary edema, keep Lasix 40 mg IV daily # Cardiomegaly with history of congestive heart failure, we will order 2D echo and cardiology consult #HTN: Continuing HCTZ in the to his in # hyperlipidemia: We will continuing statin and aspirin # SLE: Continuing hydrochloroquine # osteoarthritis: NSAID PRN #Morbid obesity:weight loss medication Counseled on diet, exercise, lifestyle modifications This medical document was created using an electronic medical record system with M[employer] direct computerized dictation system. Although this document has been carefully reviewed, there may still be some phonetic and typographical errors. These areas are purely typographical due to imperfections of the software programs, and do not reflect any compromise in the patient's medical care. Plan discussed with: Patient My Orders Orders - DYLAN ALEX MD Procedure Category Date Status Time Furosemide Injection PHA 09/25/24 Transmitted (Lasix Injection) 10:00 Echo 2d Mode Cardiac US 09/24/24 Transmitted DOP 11:29 Date of Service: Sep 24, 2024 Billing Provider: DYLAN ALEX MD Common Visit Codes: [id number] INP/OBS CARE(HIGH) DYLAN ALEX MD Sep 24, 2024 11:30
[2024-09-24] MEDS: HYDROcodone-ACET 5/325MG TAB PO PRN (12:22)
--- NOTE | 2024-09-24 15:11 | DVHSR ---
APPROVED REPORT EXAM: Two-dimensional and M-mode echocardiogram with Doppler and color Doppler. Blood Pressure: 126/84 mmHg INDICATION Rule out CHF RISK FACTORS Obesity: Height: 5'9", Weight: 280 DIMENSIONS LVDd5.5 (3.8-5.7cm)LA (2D)3.8 (1.9-4.0cm)Aortic Root3.2 (2.0-3.7cm) LVDs4.8 (2.5-4.0cm)LA (MM) (1.9-4.0cm)Aortic Cusp Exc1.8 (1.5-2.0cm) EF (%) 27.0 (55-70%)Rt. Atrium4.1 (1.9-4.0cm)Asc. Aorta cm IVSd1.2 (0.7-1.1cm)RV (D) (1.8-2.4cm) PWd1.1 (0.7-1.1cm) Mitral Valve MitralMitral Stenosis E wave1.11m/sMV Mean GR.mmHg E/A ratio0.02D MVAcm2 Aortic Valve Aortic ValveAortic Stenosis V10.78m/Tessa Mean GR.4mmHg V21.39m/Tessa Peak GR.8mmHg LVOT Diameter2.0 (1.8-2.4cm)Doppler AVA1.76cm2 Pulmonic Valve V20.74m/s Tricuspid Valve TR Velocity2.69m/s [id number] Other Information Quality : Rhythm : Tachycardia Technically limited study due to body habitus. Conclusion Moderately dilated left ventricle. Severely reduced left ventricular systolic function estimated eje ction fraction of 30%. In a global fashion. There is a grade diastolic dysfunction. Normal left ventricular size and dimension. Normal right ventricular systolic function. Normal biatrial size and dimension. Normal aortic valve structure and function. Normal mitral valve structure and function. Normal tricuspid valve structure and function. The pulmonary valve is grossly normal. No pericardial effusion.
[2024-09-24] MEDS: hydrOXYchloroQUINE SULFATE 200 MG TAB PO SCH (22:08)
[2024-09-25] VITALS (11 sets, daily range): BP systolic 98–145; BP diastolic 65–108; PULSE 56–120; RESP 12–18; TEMP 97.4–98.5; O2SAT 91–99
[2024-09-25 06:42] LABS: Basophils # (auto) 0 10 ^3/uL (0-0.2); Basophils % (auto) 0.7 % (0.0-2.0); Eosinophils # (auto) 0.2 10 ^3/uL (0-0.8); Eosinophils % (auto) 3.9 % (0.0-7.0); Hematocrit 40.4 % (36.0-46.0); Hemoglobin 13.7 g/dL (12.2-16.2); Lymphocytes # (auto) 1.6 10 ^3/uL (0.4-5.4); Lymphocytes % (auto) 26.4 % (10.0-50.0); Mean Corpuscular Hemoglobin 30.9 pg (28.0-32.0); Mean Corpuscular Volume 90.6 fL (80.0-100.0); Monocytes # (auto) 0.5 10 ^3/uL (0-1.3); Monocytes % (auto) 8.1 % (0.0-12.0); Neutrophils # (auto) 3.6 10 ^3/uL (1.6-8.6); Neutrophils % (auto) 60.9 % (37.0-80.0); Nucleated Red Blood Cells % 0.3 %; Platelet Count (auto) 230 10^3/uL (140-450); Red Blood Cells 4.45 10^6/uL (4.0-5.20); Red Cell Distribution Width 13.5 % (11.8-14.3); White Blood Cell 5.9 10^3/uL (4.4-10.8)
[2024-09-25 06:54] LABS: Anion Gap 6 (5-15); Carbon Dioxide 29 mmol/L (20-31); Chloride 106 mmol/L (98-107); Potassium 4.5 mmol/L (3.5-5.1); Sodium 141 mmol/L (136-145)
[2024-09-25 06:55] LABS: Calcium 10.3 mg/dL (8.7-10.4)
[2024-09-25 07:00] LABS: BUN/Creatinine Ratio 22.8 (10.0-20.0); Blood Urea Nitrogen 23 mg/dL (9-23); Glucose 85 mg/dL (74-106)
--- NOTE | 2024-09-25 09:07 | DVHINCON2 ---
Date Seen: Sep 25, 2024 Referring Physician MD Ida Reason for Consultation CHF History of Present Illness This is a pleasant 59-year-old female who presented to the emergency room with a chief complaint of right lower extremity swelling and pain for one week. Denies claudication, lower extremity trauma, or paresthesia. She underwent a transthoracic echocardiogram revealing a newly diagnosed cardiomyopathy with a moderately dilated left ventricle and severely reduced left ventricular systolic function with an ejection fraction of 30%. A previous echocardiogram from 06/06/2023 revealed an LVEF of 60%. Denies chest pain, palpitations, diaphoresis, shortness of breath, dizziness, or syncopal events. There was no 12 lead electrocardiogram on file. Serial troponin levels are negative. Si gnificant medical history includes lupus, dyslipidemia, varicose veins, and morbid obesity. Past Medical History Past medical history reviewed. No other significant than mentioned above. Past Surgical History Varicose veins Family History: Patient reports no known family medical history. Family History Family history reviewed. Social History Denies the use of illicit drugs, alcohol, or tobacco use. Allergies: Coded Allergies: Penicillins (Unverified Allergy, Unknown, 09/13/16) Home Meds Active Scripts Atorvastatin Calcium (ATORVASTATIN CALCIUM) 20 Mg Tab, 20 MG PO HS for 30 Days, #30 TAB Prov:KEERTHI ALMANZAR MD 12/02/21 Reported Medications Omeprazole (Omeprazole Dr) 20 Mg Cap, 1 CAP PO DAILY for 90 Days, #90 09/25/24 Semaglutide (Ozempic) 2 Mg/3 Ml Inj, 0.5 MG SC QWEEKLY for 28 Days, #3 09/25/24 Hydroxychloroquine Sulfate (Hydroxychloroquine Sulfat) 200 Mg Tab, 1 TAB PO DAILY 09/23/24 Ranolazine (Ranolazine ER) 500 Mg Tab, 1 TAB PO BID 09/23/24 Spironolactone (Spironolactone) 25 Mg Tab, 25 MG PO DAILY, TAB 07/22/22 Aspirin (Aspirin Low Dose) 81 Mg Chw, 81 MG PO DAILY, TAB.CHEW 07/22/22 Home Meds Home medications reviewed. Current Medications Current Medications Medications (Trade) Dose Ordered Sig/Vince Route PRN Reason Start Time Stop Time Status Last Admin Spironolactone (Aldactone) 25 mg DAILY PO 09/24/24 10:00 12/9/24 09:55 Aspirin 81 mg DAILY PO 09/24/24 10:00 09/24/24 09:55 Diltiazem HCl (Cardizem ER Capsule) 120 mg DAILY PO 09/24/24 10:00 09/25/24 06:50 DC 09/24/24 09:54 Patient Own Medication 15 mg DAILY PO 09/24/24 10:00 Pantoprazole Sodium (Protonix Tablet) 40 mg DAILY PO 09/24/24 10:00 09/24/24 09:53 Furosemide (Lasix Injection) 40 mg DAILY IV 09/25/24 10:00 Patient Own Medication 200 mg QPM PO 09/25/24 18:00 UNV Hydroxychloroquine Sulfate (Plaquenil Tablet) 200 mg HS PO 09/24/24 22:00 09/24/24 22:08 Sacubitril/ Valsartan (Entresto 24-26 Mg tab) 1 tab BID PO 09/25/24 10:00 Empaglifozin (Jardiance) 10 mg DAILY PO 09/25/24 10:00 Review of Systems Constitutional: No symptom reported Ears, Nose, & Throat: No symptom reported Eyes: No symptom reported Neurological: No symptoms reported Pulmonary/Respiratory: No symptom reported Cardiovascular: No symptom reported Gastrointestinal: No symptom reported Genitourinary: No symptom reported Musculoskeletal: RLE pain Skin: No symptom reported Psychiatric: No symptom reported Endocrine: No symptom reported Hemotologic/Lymphatic: No symptom reported Vital Signs Vital Signs Date Time Temp Pulse Resp B/P (MAP) Pulse Ox O2 Delivery O2 Flow Rate FiO2 09/25/24 05:00 97.5 67 18 98/72 (81) 96 97.5 09/24/24 20:00 Room Air* 0 21 Physical Exam General Appearance: Cooperative. Well developed. Morbidly obese. In no acute distress Head Exam: Normal inspection Neck Exam: Normal inspection. Non-tender. Normal alignment Pulmonary/Respiratory: Chest non-tender. Diminished bilateral breath sounds Cardiovascular/Chest: Regular rate and rhythm. S1, S2. No murmurs. No JVD. Peripheral Pulses: 2+ Radial (R). 2+ Radial (L). 2+ Pedal (R). 2+ Pedal (L) Abdominal Exam: Normal bowel sounds. Soft. Nontender. No hepatospenomegaly. No masses Ankle Exam: Negative ankle edema Lower extremities: Negative lower extremity edema Neuro/Mental Status: A&O x4. Coherent Thoughts/Psych: Normal thought pattern. Appropriate mood and affect. Good judgement and insight Appearance: In no acute distress Skin Exam: Normal inspection. Normal color. Warm. Dry Labs/Diagnostic Data Labs Test 09/25/24 05:36 09/24/24 05:10 09/23/24 14:31 09/23/24 11:23 Range/Units White Blood Count 5.9 4.4-10.8 10^3/uL Red Blood Count 4.45 4.0-5.20 10^6/uL Hemoglobin 13.7 12.2-16.2 g/dL Hematocrit 40.4 36.0-46.0 % Mean Corpuscular Volume 90.6 80.0-100.0 fL Mean Corpuscular Hemoglobin 30.9 28.0-32.0 pg Mean Corpuscular Hemoglobin Concent 34.0 32.0-36.0 g/dL Red Cell Distribution Width 13.5 11.8-14.3 % Platelet Count 230 140-450 10^3/uL Mean Platelet Volume 8.0 6.9-10.8 fL Neutrophils (%) (Auto) 60.9 37.0-80.0 % Lymphocytes (%) (Auto) 26.4 10.0-50.0 % Monocytes (%) (Auto) 8.1 0.0-12.0 % Eosinophils (%) (Auto) 3.9 0.0-7.0 % Basophils (%) (Auto) 0.7 0.0-2.0 % Neutrophils # (Auto) 3.6 1.6-8.6 10 ^3/uL Lymphocytes # (Auto) 1.6 0.4-5.4 10 ^3/uL Monocytes # (Auto) 0.5 0-1.3 10 ^3/uL Eosinophils # (Auto) 0.2 0-0.8 10 ^3/uL Basophils # (Auto) 0 0-0.2 10 ^3/uL Nucleated Red Blood Cells 0.3 % Sodium Level 141 136-145 mmol/L Potassium Level 4.5 3.5-5.1 mmol/L Chloride Level 106 98-107 mmol/L Carbon Dioxide Level 29 20-31 mmol/L Anion Gap 6 5-15 Blood Urea Nitrogen 23 9-23 mg/dL Creatinine 1.01 0.550-1.02 mg/dL Glomerular Filtration Rate Calc 63 >90 mL/min BUN/Creatinine Ratio 22.8 H 10.0-20.0 Serum Glucose 85 74-106 mg/dL Calcium Level 10.3 8.7-10.4 mg/dL Total Bilirubin 0.6 0.2-1.0 mg/dL Aspartate Amino Transferase (AST) 13 13-40 U/L Alanine Aminotransferase (ALT) 42 H 7-40 U/L Alkaline Phosphatase 74 46-116 U/L Total Protein 6.4 5.7-8.2 g/dL Albumin 4.2 3.2-4.8 g/dL Troponin I High Sensitivity 10 </=34 ng/L Prothrombin Time 10.9 9.3-11.8 sec Prothrombin Time INR 1.03 0.9-1.15 Activated Partial Thromboplast Time 28.3 24.5-34.5 SEC B-Type Natriuretic Peptide 144.73 0-100 pg/mL Assessment Chronic compensated HFrEF, NYHA Class I, newly diagnosed Dilated cardiomyopathy with LVEF of 30% Rule out coronary artery disease RLE PAD/DVT, ruled out Dyslipidemia Lupus Morbid obesity Plan/Recommendation (Dr. Barrera) The patient who is cardiac asymptomatic presents with a significant diminished left ventricular ejection fraction of 30% compared to last year's at 55-60%. We will continue further cardiac evaluation with a cardiac catheterization and coronary angiogram to rule out coronary ischemia. All risks and benefits of the procedure were discussed with the patient who agrees to proceed with int ervention. All questions answered. In the meantime, continue with a 12-lead electrocardiogram and initiate GDMT for CHF, uptitrate as tolerated. Monitor ECG changes closely. Upgrade to telemetry. Thank you for allowing us to participate in this patient's care. Please call if you have any questions or concerns. This medical document was created using an electronic medical record system with voice recognition software and computerized dictation system. Although this document has been carefully reviewed, there might still be some phonetic and typographical errors. Occasional wrong-word or ``sound-alike substitutions may have occurred due to the inherent limitations of voice recognition software. These areas are purely typographical due to imperfections of the software programs and do not reflect any compromise in the patient's medical care. Please read the chart carefully and recognize, using context, where these substitutions have occurred. Plan discussed with: Patient NYHA Physical activity limitations: Class1(None)absent sob, (fatigue,palpitaions w activity) Date of Service: Sep 25, 2024 Billing Provider: ANEUDY BARRERA MD Cardiology Common Codes: [id number] INP/OBS CARE (High) SWATHI CASANOVA [facility] Sep 25, 2024 09:07
[2024-09-25] MEDS: EMPAGLIFLOZIN 10 MG TAB PO SCH (10:00)
[2024-09-25] MEDS ORDERED: SACUBITRIL-VALSARTAN 24mg/26mg TAB PO SCH (10:00)
[2024-09-25] MEDS: SPIRONOLACTONE 25 MG TAB PO SCH (10:00)
[2024-09-25] MEDS: FUROSEMIDE 40 MG/4 ML VIAL IV SCH (10:00)
[2024-09-25] MEDS: SACUBITRIL-VALSARTAN 24mg/26mg TAB PO SCH (10:00)
[2024-09-25 10:05] LABS: Magnesium 2.1 mg/dL (1.6-2.6)
--- NOTE | 2024-09-25 10:05 | DVHPN2 ---
Assessment/Plan Assessment/Plan Progress note Subjective 59-year-old female admitted for left lower extremity pain and swelling, concern of PID. Incidentally found new onset heart failure with reduced ejection fraction. Patient was seen by Cardiology and went to microbiological lab technician today, however no significant stenosis found during left heart catheterization. Objective Physical exam Alert, oriented x3 Speaking full sentences lying flat on stretcher Obese PERRLA JVD midneck Clear breath sounds bilaterally S1-S2 regular rate and rhythm no murmur Abdomen soft nontender, no organomegaly Moving all four extremities Varicose veins on bilateral lower extremities, tender Lab BNP 144 trop neg LDL 103 Imaging cxr mild hazy interstitial opacity No DVT no stenosis Assessment and plan chronic systolic heart failure, not in exacerbation Newly diagnosed heart failure with reduced ejection fraction NICM aflutter Chronic venous insufficiency with varicose veins Lupus, not flared up Primary hypertension Morbid obesity Possible sleep apnea Cardiac consult for ischemic workup Resume hydroxychloroquine Switch Lasix to p.o. tomorrow Patient will require outpatient workup for PAD and CVI Aspirin and high-intensity statin Initiate GDMT, BB Continue with telemetry CPAP at night therapeutic lovenox, dc with eliquis Replete electrolytes Diet heart healthy DVT prophylaxis therapeutic lovenox 15 minutes spent discussing regarding lifestyle, dietary and exercise changes to modify disease process and improve quality of life Plan discussed with: Patient Date of Service: Sep 25, 2024 Billing Provider: ALONSO LIRA MD Common Visit Codes: [id number] INP/OBS CARE(HIGH) Secondary Visit Codes: [id number] COUNSELING IND ALONSO LIRA MD Sep 25, 2024 10:05
[2024-09-25] MEDS: IODIXANOL 320MG/ML 100ML BTL IV ONE (12:26)
[2024-09-25] MEDS: HEPARIN SODIUM (PORCINE) 5000 UNITS/ML 1ML VIAL ONE (12:49)
[2024-09-25] MEDS: ANGIOMAX 250 MG VIAL IV ONE (12:49)
[2024-09-25] MEDS: VERAPAMIL 2.5MG/ML INJ 2ML VIAL IV ONE (12:50)
[2024-09-25] MEDS: LIDOCAINE 2%HCL (LOCAL ANESTH.) INJ 20ML MDV ONE (12:50)
[2024-09-25] MEDS: MIDAZOLAM HCL 2MG/2ML 2ml VIAL (1mg/ml) ONE (12:50)
[2024-09-25] MEDS: SODIUM CHL 0.9% 0 ML ONE (12:50)
[2024-09-25] MEDS: fentaNYL CITRATE 100 MCG/2 ML VL ONE (12:54)
--- NOTE | 2024-09-25 13:43 | DVHOP2 ---
Operative Report -Cardiology Report Details Date: 09/25/24 Preop Diagnosis: Severely reduced left ventricular systolic function cardiac catheterization was done to rule out ischemic heart disease Postop Diagnosis: No significant coronary artery disease was noted in the study done today. Surgeon: Victoria Michel MD Anesthesiologist: Conscious sedation using25 mcg of fentanyl as well as a mg of midazolam. Was given in the direct supervision of the primary molasses coloring operator myself in the presence attending nurses. No significant complication was noted in the time patient was observed for a total of35 minutes. Anesthesia: Local Consent: The patient was informed of the risks and benefits of the procedure. These include but are not limited to complications of anesthesia, postoperative infection, incomplete relief of symptoms, recurrence of symptoms, damage to blood vessels, nerves and tendons, deep venous thrombosis, pulmonary embolism and possible need for repeat surgery in the future. Indications for Surgery: This is a pleasant 59-year-old female who presented to the emergency room with a chief complaint of right lower extremity swelling and pain for one week. Denies claudication, lower extremity trauma, or paresthesia. She underwent a transthoracic echocardiogram revealing a newly diagnosed cardiomyopathy with a moderately dilated left ventricle and severely reduced left ventricular systolic function with an ejection fraction of 30%. A previous echocardiogram from 06/06/2023 revealed an LVEF of 60%. Denies chest pain, palpitations, diaphoresis, shortness of breath, dizziness, or syncopal events. There was no 12 lead electrocardiogram on file. Serial troponin levels are negative. Significant medical history includes lupus, dyslipidemia, varicose veins, and morbid obesity. Name of Procedure Performed 1. Left heart catheterization with left ventricular end-diastolic pressure measurement. 2. Selective right and left coronary angiography utilizing right transradial approach. 3. Conscious sedation using25 mcg of fentanyl there was a mg of midazolam. Procedure Details Procedure Details: Procedure note and vascular access: After informed consent was obtained risks, benefits, complications, and alternatives were discussed in details with the patient who agrees to have the procedure done. The beginning of the procedure the right wrist in the right groin area were prepped and draped in the regular sterile fashion. Patient received conscious sedation with25 mcg of fentanyl as well as a mg midazolam. Total of2 cc of 1% xylocaine was anesthetized locally to the right wrist area before a six Romansh sheath was placed into the right radial artery without complication using modified Seldinger technique. A cocktail of 2.5 mg of verapamil as well as 100 mcg of nitroglycerin were given intra-arterial to prevent vasospasm. [place] five Romansh catheter as well as a J- tip Bentson wire was used to cross the aortic valve. Once crossing the aortic arch was 3000 heparin were given intra-arterial to prevent catheter-induced thrombosis. Findings were as follows: 1. Left heart catheterization with left ventricular end-diastolic pressure measurement: With the help of a tiger five Romansh catheter as well as a J-tip wire we were able to cross the aortic valve and measured left ventricular end-diastolic pressure which was quite elevated at 32 mm of mercury. There was no gradient across the aortic valve on the pullback precluding any aortic valve stenosis. 2. Selective right and left coronary angiography utilizing right transradial approach: 1. Right coronary artery comes off the right coronary cusp it is a large dominant system it bifurcated distally into large posterior descending artery as well as a large posterolateral branch. No significant atherosclerotic plaquing was noted. 2. Left main comes off the left coronary cusp it is widely patent without significant atherosclerotic plaquing. It bifurcated distally into a large left anterior descending artery and medium-sized left circumflex vessel. 3. The left anterior descending artery is a large vessel with transapical course gives rise to two large diagonal branches, it has no significant atherosclerotic stenosis. 4. The left circumflex vessel is medium-sized vessel it gives rise to two obtuse marginal branches, it has mild irregularity but no significant atherosclerotic plaquing or discrete stenosis was noted. Impression and plan: 1. Nonischemic cardiomyopathy as her coronary arteries did not show any significant atherosclerotic plaquing or discrete stenosis. 2. In addition to systolic heart failure the patient has underlying diastolic heart dysfunction with a quite elevated left ventricular end-diastolic pressure [id number] mm of mercury. 3. Patient was noted to be in atrial flutter during the procedure, is one of the differential diagnosis is tachycardia induced cardiomyopathy, we will recommend rate control strategy and anticoagulation in addition to goal-directed therapy for reduced left ventricular ejection fraction. 4. After optimization of medical therapy patient would need to be followed regularly in the outpatient clinic we will repeat echocardiography and possible MUGA scan is needed to assess improvement in ejection fraction after aggressive medical therapy with p.r.n. and I, sodium back calcium score transport inhibitor, potassium-sparing diuretic and beta blockade. Condition Good Dominance Dominance: Right Disposition ALHEJILY,WESAM A MD Sep 25, 2024 13:43
[2024-09-25] MEDS ORDERED: HYDROCHLOROQUINE PO SCH (18:00)
[2024-09-25] MEDS: ENOXAPARIN SOD 150 MG/1 ML SYRINGE SC SCH (21:51)
[2024-09-26] VITALS (11 sets, daily range): BP systolic 96–136; BP diastolic 46–87; PULSE 106–132; RESP 18–20; TEMP 97.6–97.9; O2SAT 93–99
--- NOTE | 2024-09-26 08:36 | DVHPN2 ---
Assessment/Plan Assessment/Plan Progress note Subjective 59-year-old female admitted for left lower extremity pain and swelling, concern of PID. Incidentally found new onset heart failure with reduced ejection fraction. Patient was seen by Cardiology and went to phlebotomist medical lab assistant today, however no significant stenosis found during left heart catheterization. Patient was seen by me during rounds today Telemetry reviewed, flutter overnight, started metoprolol, initiate AC, discus sed with cardio, for EP consult Objective Physical exam Alert, oriented x3 Speaking full sentences lying flat on stretcher Obese PERRLA JVD midneck Clear breath sounds bilaterally S1-S2 regular rate and rhythm no murmur Abdomen soft nontender, no organomegaly Moving all four extremities Varicose veins on bilateral lower extremities, tender Lab BNP 144 trop neg LDL 103 Imaging cxr mild hazy interstitial opacity No DVT no stenosis Assessment and plan chronic systolic heart failure, not in exacerbation Newly diagnosed heart failure with reduced ejection fraction NICM aflutter Chronic venous insufficiency with varicose veins Lupus, not flared up Primary hypertension Morbid obesity Possible sleep apnea Cardiac consult for ischemic workup Resume hydroxychloroquine Switch Lasix to p.o. tomorrow Patient will require outpatient workup for PAD and CVI Aspirin and high-intensity statin Initiate GDMT, BB Continue with telemetry CPAP at night therapeutic lovenox, dc with eliquis EP consult Replete electrolytes Diet heart healthy DVT prophylaxis therapeutic lovenox Plan discussed with: Patient My Orders Orders - ALONSO LIRA MD Procedure Category Date Status Time Electrocardigram EKG 09/25/24 Logged 10:04 Bipap/Cpap For Sleep RT 09/25/24 Logged Apnea 15:23 Enoxaparin Sodium PHA 09/25/24 In Process (Lovenox) 22:00 Metoprolol Xl PHA 09/26/24 Logged Succinate (Toprol Xl) 10:00 Date of Service: Sep 26, 2024 Billing Provider: ALONSO LIRA MD Common Visit Codes: [id number] INP/OBS CARE(HIGH) ALONSO LIRA MD Sep 26, 2024 08:36
[2024-09-26] MEDS: DOCUSATE SOD 100 MG CAP PO PRN (09:45)
[2024-09-26] MEDS: METOPROLOL SUCCINATE XL 50 MG TAB PO ONE (09:46)
[2024-09-26] MEDS: METOPROLOL SUCCINATE XL 50 MG TAB PO SCH ×2 (09:48→21:07)
--- NOTE | 2024-09-26 12:41 | DVHPN2 ---
Consult Progress Note Date Seen: Sep 26, 2024 Subjective Review of Systems: CVS:Abnormal, RESPIRATORY:Normal, NEURO:Normal Other Systems: C/o left-sided chest pain Objective vital signs Vital Sign Date Time Temp Pulse Resp B/P (MAP) Pulse Ox O2 Delivery O2 Flow Rate FiO2 09/26/24 10:46 97 Room Air* 0 21 09/26/24 09:49 128/81 09/26/24 09:48 126 09/26/24 09:00 97.9 20 97.9 Total Intake and Output 09/25/24 09/25/24 09/26/24 15:00 23:00 07:00 Intake Total 118 ml 200 ml Balance 118 ml 200 ml medications Current Medications Medications Dose Ordered Sig/Vince Route Start Time Stop Time Status Last Admin Dose Admin Acetaminophen/ Hydrocodone Bitart 1 tab Q4HP PRN PO 09/23/24 15:00 09/24/24 18:45 1 TAB Ondansetron HCl 4 mg Q4HP PRN IV 09/23/24 15:00 Docusate Sodium 100 mg BIDPRN PRN PO 09/23/24 15:00 09/26/24 09:45 100 MG Acetaminophen 650 mg Q6HP PRN PO 09/23/24 15:00 Morphine Sulfate 2 mg Q4HPRN PRN IV 09/23/24 15:00 Atorvastatin Calcium 20 mg HS PO 09/23/24 22:00 09/25/24 21:46 20 MG Ibuprofen 800 mg Q8HP PO 09/23/24 22:00 09/26/24 06:00 800 MG Aspirin 81 mg DAILY PO 09/24/24 10:00 09/26/24 09:47 81 MG Patient Own Medication 15 mg DAILY PO 09/24/24 10:00 Pantoprazole Sodium 40 mg DAILY PO 09/24/24 10:00 09/26/24 09:46 40 MG Patient Own Medication 200 mg QPM PO 09/25/24 18:00 UNV Hydroxychloroquine Sulfate 200 mg HS PO 09/24/24 22:00 09/25/24 21:47 200 MG Empaglifozin 10 mg DAILY PO 09/25/24 10:00 09/26/24 09:45 10 MG Sacubitril/ Valsartan 0.5 tab BID PO 09/25/24 10:00 09/26/24 09:45 0.5 TAB Spironolactone 12.5 mg DAILY PO 09/25/24 10:00 09/26/24 09:48 12.5 MG Enoxaparin Sodium 130 mg Q12HR SC 09/25/24 22:00 09/26/24 09:47 130 MG Metoprolol Succinate 25 mg DAILY PO 09/26/24 10:00 09/26/24 09:48 25 MG Furosemide 40 mg DAILY PO 09/27/24 10:00 Examination: LUNGS:Normal, CVS:Abnormal (A-flutter with RVR up to 130s bpm), NEURO:Normal laboratory and microbiology Laboratory Tests 09/25/24 05:36 Test 09/25/24 05:36 Range/Units Serum Glucose 85 74-106 mg/dL Problem List/Assessment/Plan Problem List/Assessment/Plan Chronic compensated HFrEF, NYHA Class I, newly diagnosed Dilated/non-ischemic cardiomyopathy with LVEF of 30% Atrial flutter with rapid ventricular rate, newly diagnosed Likely tachycardia induced cardiomyopathy 2/2 above RLE PAD/DVT, ruled out Dyslipidemia Lupus Morbid obesity Plan/Recommendation (Dr. Cespedes) * Transthoracic echocardiogram revealed significant diminished LVEF of 30% (LVEF 55-60% in 2022) * Initiate LifeVest x 3 months * Continue GDMT for CHF, uptitrate as tolerated * Rate control, metoprolol XL * Therapeutic Lovenox. Transition to NOAC therapy when appropriate * [id number] Score 3. HAS-BLED 1 * Obtain EP consultation for a-flutter, symptomatic * Initiate Imdur therapy for chest pain * Monitor ECG changes closely Thank you for allowing us to participate in this patient's care. Please call if you have any questions or concerns. This medical document was created using an electronic medical record system with voice recognition software and computerized dictation system. Although this document has been carefully reviewed, there might still be some phonetic and typographical errors. Occasional wrong-word or ``sound-alike substitutions may have occurred due to the inherent limitations of voice recognition software. These areas are purely typographical due to imperfections of the software programs and do not reflect any compromise in the patient's medical care. Please read the chart carefully and recognize, using context, where these substitutions have occurred. Plan discussed with: Patient, Other Date of Service: Sep 26, 2024 Billing Provider: ANEUDY CESPEDES MD Cardiology Common Codes: [id number] HOSP CARE([facility] SWATHI CASANOVA [facility] [place] Sep 26, 2024 12:41
[2024-09-26] MEDS: ISOSORBIDE MONONITRATE ER 60 MG TAB PO ONE (13:34)
[2024-09-26] MEDS ORDERED: AMIODARONE BOLUS KIT 100 ML IV ONE (17:15)
[2024-09-26] MEDS ORDERED: AMIODARONE 450mg/250ml AE 250 ML IV SCH ×2 (17:30→23:30)
[2024-09-27] VITALS (8 sets, daily range): BP systolic 104–121; BP diastolic 70–79; PULSE 101–131; RESP 17–18; TEMP 97.6–98.8; O2SAT 92–96
[2024-09-27 06:46] LABS: Alanine Aminotransferase 26 U/L (7-40); Albumin 4.3 g/dL (3.2-4.8); Alkaline Phosphatase 79 U/L (46-116); Carbon Dioxide 27 mmol/L (20-31); Chloride 106 mmol/L (98-107); Glucose 106 mg/dL (74-106); Potassium 3.8 mmol/L (3.5-5.1); Sodium 142 mmol/L (136-145)
[2024-09-27 06:47] LABS: Anion Gap 9 (5-15); BUN/Creatinine Ratio 20.7 (10.0-20.0); Bilirubin, Total 1.1 mg/dL (0.2-1.0); Blood Urea Nitrogen 17 mg/dL (9-23); Total Protein 6.7 g/dL (5.7-8.2)
[2024-09-27 06:49] LABS: Aspartate Aminotransferase 9 U/L (13-40); Calcium 10.5 mg/dL (8.7-10.4)
[2024-09-27] MEDS: ISOSORBIDE MONONITRATE ER 60 MG TAB PO SCH (09:35)
[2024-09-27] MEDS: FUROSEMIDE 40 MG TAB PO SCH (09:37)
[2024-09-27 10:30] LABS: Urine Bacteria MANY /hpf (None Seen); Urine Blood 3+ /uL (Negative); Urine Color Light-Red (Yellow); Urine Protein, UAD 2+ (Negative); Urine Specific Gravity 1.017 (1.001-1.035); Urine Urobilinogen Normal (Negative); Urine WBC 2055 /hpf (0 - 5); Urine WBC Clumps PRESENT /hpf (None Seen); Urine pH 6.5 (5.0-9.0)
[2024-09-27 10:39] LABS: Urine Clarity Cloudy (Clear)
--- NOTE | 2024-09-27 11:51 | DVHPN2 ---
Consult Progress Note Subjective Other Systems: Patient remains in atrial flutter at time of assessment. Objective vital signs Vital Sign Date Time Temp Pulse Resp B/P (MAP) Pulse Ox O2 Delivery O2 Flow Rate FiO2 09/27/24 09:37 121/73 09/27/24 09:36 125 09/27/24 08:03 97.6 18 92 97.6 09/26/24 20:00 Room Air* 0 21 Total Intake and Output 09/26/24 09/26/24 09/27/24 15:00 23:00 07:00 Intake Total 118 ml 476 ml 400 ml Output Total 300 ml Balance 118 ml 176 ml 400 ml medications Current Medications Medications Dose Ordered Sig/Vince Route Start Time Stop Time Status Last Admin Dose Admin Acetaminophen/ Hydrocodone Bitart 1 tab Q4HP PRN PO 09/23/24 15:00 09/24/24 18:45 1 TAB Ondansetron HCl 4 mg Q4HP PRN IV 09/23/24 15:00 Docusate Sodium 100 mg BIDPRN PRN PO 09/23/24 15:00 09/26/24 09:45 100 MG Acetaminophen 650 mg Q6HP PRN PO 09/23/24 15:00 Morphine Sulfate 2 mg Q4HPRN PRN IV 09/23/24 15:00 Atorvastatin Calcium 20 mg HS PO 09/23/24 22:00 09/26/24 21:08 20 MG Ibuprofen 800 mg Q8HP PO 09/23/24 22:00 09/26/24 06:00 800 MG Patient Own Medication 15 mg DAILY PO 09/24/24 10:00 Pantoprazole Sodium 40 mg DAILY PO 09/24/24 10:00 09/27/24 09:36 40 MG Patient Own Medication 200 mg QPM PO 09/25/24 18:00 UNV Hydroxychloroquine Sulfate 200 mg HS PO 09/24/24 22:00 09/26/24 21:07 200 MG Empaglifozin 10 mg DAILY PO 09/25/24 10:00 09/27/24 09:35 10 MG Sacubitril/ Valsartan 0.5 tab BID PO 09/25/24 10:00 09/27/24 09:33 0.5 TAB Spironolactone 12.5 mg DAILY PO 09/25/24 10:00 09/27/24 09:37 12.5 MG Enoxaparin Sodium 130 mg Q12HR SC 09/25/24 22:00 09/26/24 21:09 130 MG Furosemide 40 mg DAILY PO 09/27/24 10:00 09/27/24 09:37 40 MG Isosorbide Mononitrate 30 mg DAILY PO 09/27/24 10:00 09/27/24 09:35 30 MG Metoprolol Succinate 25 mg BID PO 09/26/24 22:00 09/27/24 09:36 25 MG Examination: GENERAL:Normal, LUNGS:Normal, CVS:Abnormal (Atrial flutter), NEURO:Normal laboratory and microbiology Laboratory Tests 09/27/24 05:46 09/25/24 05:36 Test 09/27/24 05:46 Range/Units Serum Glucose 106 74-106 mg/dL Problem List/Assessment/Plan Problem List/Assessment/Plan Chronic compensated HFrEF, NYHA Class I, newly diagnosed Dilated/non-ischemic cardiomyopathy with LVEF of 30% Atrial flutter with rapid ventricular rate, newly diagnosed Likely tachycardia induced cardiomyopathy 2/2 above RLE PAD/DVT, ruled out Dyslipidemia Lupus Morbid obesity Plan/Recommendation (Dr. Cespedes) * Transthoracic echocardiogram revealed significant diminished LVEF of 30% (LVEF 55-60% in 2022) * Initiate LifeVest x 3 months * Continue GDMT for CHF, uptitrate as tolerated * Rate control, metoprolol XL * Therapeutic Lovenox. Transition to NOAC therapy when appropriate * [id number] Score 3. HAS-BLED 1 * Continue Imdur therapy for chest pain * Monitor ECG changes closely The patient underwent a coronary angiogram with left heart catheterization on 09/25/24 which revealed no significant coronary artery disease. New onset atrial fibrillation noted. Case discussed with . EP team was consulted and are planning for GEOFF with direct current cardioversion tomorrow. There is no further inpatient cardiac workup at this time. Rest of care per EP recommendations. The patient should follow up with Cardiology in the outpatient setting in 1-2 weeks post discharge. Thank you for allowing us to participate in this patient's care. Please call if you have any questions or concerns. This medical document was created using an electronic medical record system with voice recognition software and computerized dictation system. Although this document has been carefully reviewed, there might still be some phonetic and typographical errors. Occasional wrong-word or ``sound-alike substitutions may have occurred due to the inherent limitations of voice recognition software. These areas are purely typographical due to imperfections of the software programs and do not reflect any compromise in the patient's medical care. Please read the chart carefully and recognize, using context, where these substitutions have occurred. Plan discussed with: Patient Date of Service: Sep 27, 2024 Billing Provider: ANEUDY CESPEDES MD Common Visit Codes: [id number] INP/OBS CARE(HIGH) KAREN RAMIREZ [employer] Sep 27, 2024 11:51
--- NOTE | 2024-09-27 12:39 | DVHINCON2 ---
Date of service: Sep 26, [address] Michel Reason for Consultation Aflutter with RVR History of Present Illness Lindsey Mcadams is a 59 y/o Female with hyperlipidemia, arthritis, lupus, morbid obesity and varicose veins presented to the ED originally for RLE pain and swelling x 1 weeks. She was admitted and evaluated by primary cardiology to find reduced EF and therefore underwent LHC at which time it was found that patient was in Atrial flutter. Pt denies prior know diagnosis of arrhythmia and states she is seen by Dr Ordonez as outpatient with most recent visit a couple of weeks ago. Pt has been placed on metoprolol succinate 25mg daily and the rapeutic lovenox with EP consultation placed. Pt was originally admitted as medsurg status and therefore was not on telemetry for the first few days of admission. Additionally, patient did not have admission EKG performed therefore it is unclear if patient was in atrial flutter at time of admission or at what time she may have entered into it. Pt denies palpitations, current or past therefore symptomatology is not an indicator for onset either. At time of encounter, pt telemetry reveals Atrial flutter in the range of 114-127 bpm. TSH 1.84 K 4.5 Mg 2.1 Creat 1.01 ECHO: Conclusion Moderately dilated left ventricle. Severely reduced left ventricular systolic function estimated ejection fraction of 30%. In a global fashion. There is a grade diastolic dysfunction. Normal left ventricular size and dimension. Normal right ventricular systolic function. Normal biatrial size and dimension. Normal aortic valve structure and function. Normal mitral valve structure and function. Normal tricuspid valve structure and function. The pulmonary valve is grossly normal. No pericardial effusion. LHC: 1. Nonischemic cardiomyopathy as her coronary arteries did not show any significant atherosclerotic plaquing or discrete stenosis. 2. In addition to systolic heart failure the patient has underlying diastolic heart dysfunction with a quite elevated left ventricular end-diastolic pressure [id number] mm of mercury. 3. Patient was noted to be in atrial flutter during the procedure, is one of the differential diagnosis is tachycardia induced cardiomyopathy, we will recommend rate control strategy and anticoagulation in addition to goal-directed therapy for reduced left ventricular ejection fraction. 4. After optimization of medical therapy patient would need to be followed regularly in the outpatient clinic we will repeat echocardiography and possible MUGA scan is needed to assess improvement in ejection fraction after aggressive medical therapy with p.r.n. and I, sodium back calcium score transport inhibitor, potassium-sparing diuretic and beta blockade. Family History: Patient reports no known family medical history. Allergies: Coded Allergies: Penicillins (Unverified Allergy, Unknown, 09/13/16) Home Meds Active Scripts Atorvastatin Calcium (ATORVASTATIN CALCIUM) 20 Mg Tab, 20 MG PO HS for 30 Days, #30 TAB Prov:KEERTHI ALMANZAR MD 12/02/21 Reported Medications Omeprazole (Omeprazole Dr) 20 Mg Cap, 1 CAP PO DAILY for 90 Days, #90 09/25/24 Semaglutide (Ozempic) 2 Mg/3 Ml Inj, 0.5 MG SC QWEEKLY for 28 Days, #3 09/25/24 Hydroxychloroquine Sulfate (Hydroxychloroquine Sulfat) 200 Mg Tab, 1 TAB PO NEIDA Y 09/23/24 Ranolazine (Ranolazine ER) 500 Mg Tab, 1 TAB PO BID 09/23/24 Spironolactone (Spironolactone) 25 Mg Tab, 25 MG PO DAILY, TAB 07/22/22 Aspirin (Aspirin Low Dose) 81 Mg Chw, 81 MG PO DAILY, TAB.CHEW 07/22/22 Current Medications Current Medications Medications (Trade) Dose Ordered Sig/Vince Route PRN Reason Start Time Stop Time Status Last Admin Furosemide (Lasix Tablet) 40 mg DAILY PO 09/27/24 10:00 09/27/24 09:37 Isosorbide Mononitrate (Imdur Er Tablet) 30 mg DAILY PO 09/27/24 10:00 09/27/24 09:35 Amiodarone HCl 250 ml @ 33.333 mls/ hr Q7H30M IV 09/26/24 17:30 09/26/24 18:39 DC Amiodarone HCl 250 ml @ 16.667 mls/ hr Q15H IV 09/26/24 23:30 09/26/24 18:39 DC Metoprolol Succinate (Toprol Xl) 25 mg BID PO 09/26/24 22:00 09/27/24 09:36 Vital Signs Vital Signs Date Time Temp Pulse Resp B/P (MAP) Pulse Ox O2 Delivery O2 Flow Rate FiO2 09/27/24 11:57 97.8 126 17 118/77 (91) 93 97.8 09/26/24 20:00 Room Air* 0 21 Labs/Diagnostic Data Labs Test 09/27/24 05:46 09/27/24 05:05 09/25/24 05:36 09/23/24 14:31 Range/Units Sodium Level 142 136-145 mmol/L Potassium Level 3.8 3.5-5.1 mmol/L Chloride Level 106 98-107 mmol/L Carbon Dioxide Level 27 20-31 mmol/L Anion Gap 9 5-15 Blood Urea Nitrogen 17 9-23 mg/dL Creatinine 0.82 0.550-1.02 mg/dL Glomerular Filtration Rate Calc 81 >90 mL/min BUN/Creatinine Ratio 20.7 H 10.0-20.0 Serum Glucose 106 74-106 mg/dL Calcium Level 10.5 H 8.7-10.4 mg/dL Total Bilirubin 1.1 H 0.2-1.0 mg/dL Aspartate Amino Transferase (AST) 9 L 13-40 U/L Alanine Aminotransferase (ALT) 26 7-40 U/L Alkaline Phosphatase 79 46-116 U/L Total Protein 6.7 5.7-8.2 g/dL Albumin 4.3 3.2-4.8 g/dL Urine Color Light-red Yellow Urine Clarity Cloudy H Clear Urine pH 6.5 5.0-9.0 Urine Specific Carnation 1.017 1.001-1.035 Urine Protein 2+ H Negative Urine Ketones Negative Negative Urine Blood 3+ H Negative /uL Urine Nitrite Negative Negative Urine Bilirubin Negative Negative Urine Urobilinogen Normal Negative mg/dL Urine Leukocyte Esterase 3+ Negative /uL Urine RBC 3208 0 - 4 /hpf Urine WBC 2055 0 - 5 /hpf Urine WBC Clumps Present None Seen /hpf Urine Squamous Epithelial Cells Mod <5 /hpf Urine Bacteria Many H None Seen /hpf Urine Glucose 3+ H Normal mg/dL White Blood Count 5.9 4.4-10.8 10^3/uL Red Blood Count 4.45 4.0-5.20 10^6/uL Hemoglobin 13.7 12.2-16.2 g/dL Hematocrit 40.4 36.0-46.0 % Mean Corpuscular Volume 90.6 80.0-100.0 fL Mean Corpuscular Hemoglobin 30.9 28.0-32.0 pg Mean Corpuscular Hemoglobin Concent 34.0 32.0-36.0 g/dL Red Cell Distribution Width 13.5 11.8-14.3 % Platelet Count 230 140-450 10^3/uL Mean Platelet Volume 8.0 6.9-10.8 fL Neutrophils (%) (Auto) 60.9 37.0-80.0 % Lymphocytes (%) (Auto) 26.4 10.0-50.0 % Monocytes (%) (Auto) 8.1 0.0-12.0 % Eosinophils (%) (Auto) 3.9 0.0-7.0 % Basophils (%) (Auto) 0.7 0.0-2.0 % Neutrophils # (Auto) 3.6 1.6-8.6 10 ^3/uL Lymphocytes # (Auto) 1.6 0.4-5.4 10 ^3/uL Monocytes # (Auto) 0.5 0-1.3 10 ^3/uL Eosinophils # (Auto) 0.2 0-0.8 10 ^3/uL Basophils # (Auto) 0 0-0.2 10 ^3/uL Nucleated Red Blood Cells 0.3 % Hemoglobin A1c 5.1 <5.7 % A1C Magnesium Level 2.1 1.6-2.6 mg/dL Triglycerides Level 128 < 150 mg/dL Cholesterol Level 170 < 200 mg/dL LDL Cholesterol 103 H < 100 mg/dL HDL Cholesterol 47 40-59 mg/dL Thyroid Stimulating Hormone (TSH) 1.84 0.55-4.78 uIU/mL Troponin I High Sensitivity 10 </=34 ng/L Test 09/23/24 11:23 Range/Units Prothrombin Time 10.9 9.3-11.8 sec Prothrombin Time INR 1.03 0.9-1.15 Activated Partial Thromboplast Time 28.3 24.5-34.5 SEC B-Type Natriuretic Peptide 144.73 0-100 pg/mL Plan/Recommendation Lindsey Mcadams is a 59 y/o Female with hyperlipidemia, arthritis, lupus, morb id obesity and varicose veins presented to the ED originally for RLE pain and swelling x 1 weeks. She was admitted and evaluated by primary cardiology to find reduced EF and therefore underwent LHC at which time it was found that patient was in Atrial flutter. Pt denies prior know diagnosis of arrhythmia and states she is seen by Dr Ordonez as outpatient with most recent visit a couple of weeks ago. Pt has been placed on metoprolol succinate 25mg daily and therapeutic lovenox with EP consultation placed. Pt was originally admitted as medsurg status and therefore was not on telemetry for the first few days of admission. Additionally, patient did not have admission EKG performed therefore it is unclear if patient was in atrial flutter at time of admission or at what time she may have entered into it. Pt denies palpitations, current or past therefore symptomatology is not an indicator for onset either. At time of encounter, pt telemetry reveals Atrial flutter in the range of 114-127 bpm. TSH 1.84 K 4.5 Mg 2.1 Creat 1.01 ECHO: Conclusion Moderately dilated left ventricle. Severely reduced left ventricular systolic function estimated ejection fraction of 30%. In a global fashion. There is a grade diastolic dysfunction. Normal left ventricular size and dimension. Normal right ventricular systolic function. Normal biatrial size and dimension. Normal aortic valve structure and function. Normal mitral valve structure and function. Normal tricuspid valve structure and function. The pulmonary valve is grossly normal. No pericardial effusion. LHC: 1. Nonischemic cardiomyopathy as her coronary arteries did not show any significant atherosclerotic plaquing or discrete stenosis. 2. In addition to systolic heart failure the patient has underlying diastolic heart dysfunction with a quite elevated left ventricular end-diastolic pressure [id number] mm of mercury. 3. Patient was noted to be in atrial flutter during the procedure, is one of the differential diagnosis is tachycardia induced cardiomyopathy, we will recommend rate control strategy and anticoagulation in addition to goal-directed therapy for reduced left ventricular ejection fraction. 4. After optimization of medical therapy patient would need to be followed regularly in the outpatient clinic we will repeat echocardiography and possible MUGA scan is needed to assess improvement in ejection fraction after aggressive medical therapy with p.r.n. and I, sodium back calcium score transport inhibitor, potassium-sparing diuretic and beta blockade. Physical Exam General: No acute distress. Awake and conversant. Morbid obesity Neck: Neck is supple. No masses or thyromegaly, no JVD, No carotid bruit. Respiratory: Respirations are non-labored. Lungs are clear to auscultation. Skin: Warm. CV: Atrial flutter, Normal heart sounds, no murmurs. No lower extremity edema. Neuro: AAo x 4 Assessments: Aflutter with RVR Newly diagnosed NICM with EF 30% EP recommendations: It is unclear of onset for Aflutter as patient did not have EKG in the ED and was admitted as medsurg status initially. All Physical exam documentation notes a regular rate and rhythm prior to findings of Atrial flutter in the physical laboratory assistant. HR previously noted controlled with acute jump in rate to the 120-130 range, now noted as atrial flutter. Pt also denies feeling any palpitations previously or currently. As such, will attempt for rate control strategy using Metoprolol succinate 25mg BID. Continue with full AC with lovenox for CVA prophylaxis. If rate control does not work, then will consider DCCV with GEOFF, to be scheduled per Dr Delfino Ngo Discussed plan of care with patient from EP perspective. All questions answered. She is agreeable with POC. Remainder of Cardiac plan of care per primary cardiology. Management on telemetry with Cardiac monitoring Ongoing rate and rhythm surveillance Hemodynamic monitoring. Avoid hypertension and hypotension. Monitor and maintain electrolytes and renal function. Supplement as needed to maintain K > 4.0 and Mg > 2.0. Monitor Hgb and transfuse if Hgb < 7.0. Lifestyle and risk modification counseling All available labs, EKGs, and images were personally reviewed Patient's status, findings, and plan of care was discussed and reviewed with supervising physician Dr. Ngo, who is in agreement with current plan of care. Plan of care discussed with and agreed upon by the patient/Primary RN. Prognosis: Guarded Thank you for allowing me to participate in the care of this patient. Further recommendations will depend on clinical progression, hospitalist, and other consultants. Will continue to follow with Primary. If you have any questions, please do not hesitate to contact me. A total of 75 minutes was spent reviewing the patient record, examining the patient, making a diagnostic and therapeutic plan, discussing this plan with medical personnel, following up on diagnostic studies and following the patient for clinical stability including any and all procedures. At least 50% of this time was spent in direct, stad-hw-swil contact. Plan discussed with: Patient, Other (RN) Provider Statement: I have reviewed the case with my supervising physician. We have agreed with the plan of care. ROSI L[facility]PEZ [facility] Sep 27, 2024 12:39
--- NOTE | 2024-09-27 12:40 | DVHPN2 ---
Progress Note - Dictate Date Seen: Sep 27, 2024 Medical Necessity Reason Pt with a Central, PICC or Fol: No vital signs Vital Sign Date Time Temp Pulse Resp B/P (MAP) Pulse Ox O2 Delivery O2 Flow Rate FiO2 09/27/24 11:57 97.8 126 17 118/77 (91) 93 97.8 09/26/24 20:00 Room Air* 0 21 Total Intake and Output 09/26/24 09/26/24 09/27/24 15:00 23:00 07:00 Intake Total 118 ml 476 ml 400 ml Output Total 300 ml Balance 118 ml 176 ml 400 ml medications Current Medications Medications Dose Ordered Sig/Vince Route Start Time Stop Time Status Last Admin Dose Admin Acetaminophen/ Hydrocodone Bitart 1 tab Q4HP PRN PO 09/23/24 15:00 09/24/24 18:45 Ondansetron HCl 4 mg Q4HP PRN IV 09/23/24 15:00 Docusate Sodium 100 mg BIDPRN PRN PO 09/23/24 15:00 09/26/24 09:45 Acetaminophen 650 mg Q6HP PRN PO 09/23/24 15:00 Morphine Sulfate 2 mg Q4HPRN PRN IV 09/23/24 15:00 Atorvastatin Calcium 20 mg HS PO 09/23/24 22:00 09/26/24 21:08 Ibuprofen 800 mg Q8HP PO 09/23/24 22:00 09/26/24 06:00 Patient Own Medication 15 mg DAILY PO 09/24/24 10:00 Pantoprazole Sodium 40 mg DAILY PO 09/24/24 10:00 09/27/24 09:36 Patient Own Medication 200 mg QPM PO 09/25/24 18:00 UNV Hydroxychloroquine Sulfate 200 mg HS PO 09/24/24 22:00 09/26/24 21:07 Empaglifozin 10 mg DAILY PO 09/25/24 10:00 09/27/24 09:35 Sacubitril/ Valsartan 0.5 tab BID PO 09/25/24 10:00 09/27/24 09:33 Spironolactone 12.5 mg DAILY PO 09/25/24 10:00 09/27/24 09:37 Enoxaparin Sodium 130 mg Q12HR SC 09/25/24 22:00 09/26/24 21:09 Furosemide 40 mg DAILY PO 09/27/24 10:00 09/27/24 09:37 Isosorbide Mononitrate 30 mg DAILY PO 09/27/24 10:00 09/27/24 09:35 Metoprolol Succinate 25 mg BID PO 09/26/24 22:00 09/27/24 09:36 laboratory and microbiology Laboratory Tests 09/27/24 05:46 09/25/24 05:36 Test 09/27/24 05:46 Range/Units Serum Glucose 106 74-106 mg/dL Assessment/Plan Lindsey Mcadams is a 59 y/o Female with hyperlipidemia, arthritis, lupus, morbid obesity and varicose veins presented to the ED originally for RLE pain and swelling x 1 weeks. She was admitted and evaluated by primary cardiology to find reduced EF and therefore underwent LHC at which time it was found that patient was in Atrial flutter. Pt denies prior know diagnosis of arrhythmia and states she is seen by Dr Ordonez as outpatient with most recent visit a couple of weeks ago. Pt has been placed on metoprolol succinate 25mg daily and therapeutic lovenox with EP consultation placed. Pt was originally admitted as medsurg status and therefore was not on telemetry for the first few days of admission. Additionally, patient did not have admission EKG performed therefore it is unclear if patient was in atrial flutter at time of admission or at what time she may have entered into it. Pt denies palpitations, current or past therefore symptomatology is not an indicator for onset either. At time of encounter, pt telemetry reveals Atrial flutter in the range of 114-127 bpm. TSH 1.84 K 4.5 Mg 2.1 Creat 1.01 ECHO: Conclusion Moderately dilated left ventricle. Severely reduced left ventricular systolic function estimated ejection fraction of 30%. In a global fashion. There is a grade diastolic dysfunction. Normal left ventricular size and dimension. Normal right ventricular systolic function. Normal biatrial size and dimension. Normal aortic valve structure and function. Normal mitral valve structure and function. Normal tricuspid valve structure and function. The pulmonary valve is grossly normal. No pericardial effusion. LHC: 1. Nonischemic cardiomyopathy as her coronary arteries did not show any significant atherosclerotic plaquing or discrete stenosis. 2. In addition to systolic heart failure the patient has underlying diastolic heart dysfunction with a quite elevated left ventricular end-diastolic pressure mm of mercury. 3. Patient was noted to be in atrial flutter during the procedure, is one of the differential diagnosis is tachycardia induced cardiomyopathy, we will recommend rate control strategy and anticoagulation in addition to goal-directed therapy for reduced left ventricular ejection fraction. 4. After optimization of medical therapy patient would need to be followed regularly in the outpatient clinic we will repeat echocardiography and possible MUGA scan is needed to assess improvement in ejection fraction after aggressive medical therapy with p.r.n. and I, sodium back calcium score transport inhibitor, potassium-sparing diuretic and beta blockade. Physical Exam General: No acute distress. Awake and conversant. Morbid obesity Neck: Neck is supple. No masses or thyromegaly, no JVD, No carotid bruit. Respiratory: Respirations are non-labored. Lungs are clear to auscultation. Skin: Warm. CV: Atrial flutter, Normal heart sounds, no murmurs. No lower extremity edema. Neuro: AAo x 4 Assessments: Aflutter with RVR Newly diagnosed NICM with EF 30% EP recommendations: It is unclear of onset for Aflutter as patient did not have EKG in the ED and was admitted as medsur status initially. All Physical exam documentation notes a regular rate and rhythm prior to findings of Atrial flutter in the laboratory associate. HR previously noted controlled with acute jump in rate to the 120-130 range, now noted as atrial flutter. Pt also denies feeling any palpitations previously or currently. Attempted for rate control strategy using Metoprolol succinate 25mg BID, however rate control was not obtained. Continue with full AC with lovenox for CVA prophylaxis. Will plan for DCCV with GEOFF, tomorrow 09/28/[address] Delfino Ngo Discussed plan of care with patient from EP perspective. All questions answered. She is agreeable with POC. - NPO after MN - Amiodarone gtt started per Dr Ngo request until Procedure tomorrow. Remainder of Cardiac plan of care per primary cardiology. Management on telemetry with Cardiac monitoring Ongoing rate and rhythm surveillance Hemodynamic monitoring. Avoid hypertension and hypotension. Monitor and maintain electrolytes and renal function. Supplement as needed to maintain K > 4.0 and Mg > 2.0. Monitor Hgb and transfuse if Hgb < 7.0. Lifestyle and risk modification counseling All available labs, EKGs, and images were personally reviewed Patient's status, findings, and plan of care was discussed and reviewed with supervising physician Dr. Ngo, who is in agreement with current plan of care. Plan of care discussed with and agreed upon by the patient/Primary RN. Prognosis: Guarded Thank you for allowing me to participate in the care of this patient. Further recommendations will depend on clinical progression, hospitalist, and other consultants. Will continue to follow with Primary. If you have any questions, please do not hesitate to contact me. A total of 55 minutes was spent reviewing the patient record, examining the patient, making a diagnostic and therapeutic plan, discussing this plan with medical personnel, following up on diagnostic studies and following the patient for clinical stability including any and all procedures. At least 50% of this time was spent in direct, [id number] contact. Plan discussed with: Patient, Other (RN) Provider Statement: I have reviewed the case with my supervising physician. We have agreed with the plan of care. ROSI LÓPEZ SCREEN MAKING TECHNICIAN Sep 27, 2024 12:40
--- NOTE | 2024-09-27 14:11 | DVHPN2 ---
Assessment/Plan Assessment/Plan Progress note Subjective 59-year-old female admitted for left lower extremity pain and swelling, concern of PID. Incidentally found new onset heart failure with reduced ejection fraction. Patient was seen by Cardiology and went to ammunition assembly laborer today, however no significant stenosis found during left heart catheterization. Patient was seen by me during rounds today Telemetry reviewed, still have episodes of flutter. Pending life vest. Seen by EP, plan for rate control and possible DCCV and GEOFF. have episode of hematuria, will treat as UTI, benefit outweighs risk of AC for now, will continue and trend HH Objective Physical exam Alert, oriented x3 Speaking full sentences lying flat on stretcher Obese PERRLA JVD midneck Clear breath sounds bilaterally S1-S2 regular, tachycardic Abdomen soft nontender, no organomegaly Moving all four extremities Varicose veins on bilateral lower extremities, tender Lab BNP 144 trop neg LDL 103 Imaging cxr mild hazy interstitial opacity No DVT no stenosis Assessment and plan chronic systolic heart failure, not in exacerbation Newly diagnosed heart failure with reduced ejection fraction NICM aflutter Chronic venous insufficiency with varicose veins Lupus, not flared up Primary hypertension Morbid obesity Possible sleep apnea hematuria possible UTI Cardiac consult for ischemic workup Resume hydroxychloroquine Switch Lasix to p.o. tomorrow Patient will require outpatient workup for PAD and CVI Aspirin and high-intensity statin Initiate GDMT, BB not rate controlled, increase metoprolol to BID per EP possible GEOFF and DCCV Continue with telemetry CPAP at night therapeutic lovenox, dc with eliquis macrobid pending life vest Replete electrolytes Diet heart healthy DVT prophylaxis therapeutic lovenox Plan discussed with: Patient Date of Service: Sep 27, 2024 Billing Provider: ALONSO LIRA MD Common Visit Codes: [id number] INP/OBS CARE(HIGH) ALONSO LIRA MD Sep 27, 2024 14:11
[2024-09-27 14:47] LABS: INR 1.07 (0.9-1.15); Partial Thromboplastin Time 32.4 SEC (24.5-34.5); Prothrombin Time 11.3 sec (9.3-11.8)
[2024-09-27] MEDS: NITROFURANTOIN 100 mg CAP PO SCH (15:40)
[2024-09-27] MEDS: AMIODARONE 450mg/250ml AE 250 ML IV SCH (15:42)
[2024-09-28] VITALS (14 sets, daily range): BP systolic 92–126; BP diastolic 46–67; PULSE 53–122; RESP 16–20; TEMP 97.1–98.6; O2SAT 92–97
[2024-09-28] MEDS: AMIODARONE 450mg/250ml AE 250 ML IV SCH (00:23)
[2024-09-28 07:31] LABS: Chloride 105 mmol/L (98-107); Potassium 3.5 mmol/L (3.5-5.1); Sodium 141 mmol/L (136-145)
[2024-09-28 07:32] LABS: Anion Gap 11 (5-15); Carbon Dioxide 25 mmol/L (20-31)
[2024-09-28 07:34] LABS: Calcium 10.6 mg/dL (8.7-10.4)
[2024-09-28 07:37] LABS: BUN/Creatinine Ratio 22.7 (10.0-20.0); Basophils # (auto) 0.1 10 ^3/uL (0-0.2); Basophils % (auto) 0.7 % (0.0-2.0); Blood Urea Nitrogen 20 mg/dL (9-23); Eosinophils # (auto) 0.3 10 ^3/uL (0-0.8); Eosinophils % (auto) 3.6 % (0.0-7.0); Glucose 101 mg/dL (74-106); Hematocrit 45.5 % (36.0-46.0); Hemoglobin 15.8 g/dL (12.2-16.2); Lymphocytes % (auto) 27.5 % (10.0-50.0); Mean Corpuscular Hemoglobin 31.1 pg (28.0-32.0); Mean Corpuscular Hgb Conc. 34.8 g/dL (32.0-36.0); Mean Corpuscular Volume 89.5 fL (80.0-100.0); Monocytes # (auto) 0.7 10 ^3/uL (0-1.3); Neutrophils # (auto) 4.4 10 ^3/uL (1.6-8.6); Neutrophils % (auto) 59.2 % (37.0-80.0); Nucleated Red Blood Cells % 0.8 %; Platelet Count (auto) 277 10^3/uL (140-450); Red Blood Cells 5.08 10^6/uL (4.0-5.20); Red Cell Distribution Width 13.6 % (11.8-14.3); White Blood Cell 7.4 10^3/uL (4.4-10.8)
--- NOTE | 2024-09-28 12:15 | DVHPN2 ---
Progress Note - Dictate Date Seen: Sep 28, 2024 Medical Necessity Reason Pt with a Central, PICC or Fol: No Subjective Patient seen and examined at the bedside within telemetry. Remains in atrial flutter with RVR within the 120s upon telemetry review. Hemodynamically stable. Remains pending GEOFF DCCV with Dr. Ngo which is planned today. She remains agreeable to the plan of care. Chart reviewed. vital signs Vital Sign Date Time Temp Pulse Resp B/P (MAP) Pulse Ox O2 Delivery O2 Flow Rate FiO2 09/28/24 10:31 126/63 09/28/24 10:29 122 09/28/24 09:00 97.8 18 96 97.8 09/28/24 08:00 Room Air* 0 21 Total Intake and Output 09/27/24 09/27/24 09/28/24 15:00 23:00 07:00 Intake Total 500 ml 600 ml Output Total 6 ml Balance 500 ml 594 ml medications Current Medications Medications Dose Ordered Sig/Vince Route Start Time Stop Time Status Last Admin Dose Admin Acetaminophen/ Hydrocodone Bitart 1 tab Q4HP PRN PO 09/23/24 15:00 09/24/24 18:45 1 TAB Ondansetron HCl 4 mg Q4HP PRN IV 09/23/24 15:00 Docusate Sodium 100 mg BIDPRN PRN PO 09/23/24 15:00 09/26/24 09:45 100 MG Acetaminophen 650 mg Q6HP PRN PO 09/23/24 15:00 Morphine Sulfate 2 mg Q4HPRN PRN IV 09/23/24 15:00 Atorvastatin Calcium 20 mg HS PO 09/23/24 22:00 09/27/24 21:25 20 MG Ibuprofen 800 mg Q8HP PO 09/23/24 22:00 09/27/24 21:23 800 MG Patient Own Medication 15 mg DAILY PO 09/24/24 10:00 Pantoprazole Sodium 40 mg DAILY PO 09/24/24 10:00 09/28/24 10:29 40 MG Patient Own Medication 200 mg QPM PO 09/25/24 18:00 UNV Hydroxychloroquine Sulfate 200 mg HS PO 09/24/24 22:00 09/27/24 21:26 200 MG Empaglifozin 10 mg DAILY PO 09/25/24 10:00 09/28/24 10:29 10 MG Sacubitril/ Valsartan 0.5 tab BID PO 09/25/24 10:00 09/28/24 10:28 0.5 TAB Spironolactone 12.5 mg DAILY PO 09/25/24 10:00 09/28/24 10:27 12.5 MG Enoxaparin Sodium 130 mg Q12HR SC 09/25/24 22:00 09/27/24 21:29 130 MG Furosemide 40 mg DAILY PO 09/27/24 10:00 09/28/24 10:29 40 MG Isosorbide Mononitrate 30 mg DAILY PO 09/27/24 10:00 09/28/24 10:31 30 MG Metoprolol Succinate 25 mg BID PO 09/26/24 22:00 09/28/24 10:29 25 MG Nitrofurantoin Macrocrystals 100 mg BID PO 09/27/24 14:32 09/28/24 10:27 100 MG Amiodarone HCl 250 ml @ 16.667 mls/ hr Q15H IV 09/27/24 20:45 09/28/24 11:21 16.667 MLS/HR laboratory and microbiology Laboratory Tests 09/28/24 06:09 Test 09/28/24 06:09 Range/Units Serum Glucose 101 74-106 mg/dL Assessment/Plan Assessment/Plan Lindsey Mcadams is a 59 y/o Female with hyperlipidemia, arthritis, lupus, morbid obesity and varicose veins presented to the ED originally for RLE pain and swelling x 1 weeks. She was admitted and evaluated by primary cardiology to find reduced EF and therefore underwent LHC at which time it was found that patient was in Atrial flutter. Pt denies prior know diagnosis of arrhythmia and states she is seen by Dr Ordonez as outpatient with most recent visit a couple of weeks ago. Pt has been placed on metoprolol succinate 25mg daily and therapeutic lovenox with EP consultation placed. Pt was originally admitted as medsurg status and therefore was not on telemetry for the first few days of admission. Additionally, patient did not have admission EKG performed therefore it is unclear if patient was in atrial flutter at time of admission or at what time she may have entered into it. Pt denies palpitations, current or past therefore symptomatology is not an indicator for onset either. At time of encounter, pt telemetry reveals Atrial flutter in the range of 114-127 bpm. TSH 1.84 K 4.5 Mg 2.1 Creat 1.01 ECHO: Conclusion Moderately dilated left ventricle. Severely reduced left ventricular systolic function estimated ejection fraction of 30%. In a global fashion. There is a grade diastolic dysfunction. Normal left ventricular size and dimension. Normal right ventricular systolic function. Normal biatrial size and dimension. Normal aortic valve structure and function. Normal mitral valve structure and function. Normal tricuspid valve structure and function. The pulmonary valve is grossly normal. No pericardial effusion. LHC: 1. Nonischemic cardiomyopathy as her coronary arteries did not show any significant atherosclerotic plaquing or discrete stenosis. 2. In addition to systolic heart failure the patient has underlying diastolic heart dysfunction with a quite elevated left ventricular end-diastolic pressure mm of mercury. 3. Patient was noted to be in atrial flutter during the procedure, is one of the differential diagnosis is tachycardia induced cardiomyopathy, we will recommend rate control strategy and anticoagulation in addition to goal-directed therapy for reduced left ventricular ejection fraction. 4. After optimization of medical therapy patient would need to be followed regularly in the outpatient clinic we will repeat echocardiography and possible MUGA scan is needed to assess improvement in ejection fraction after aggressive medical therapy with p.r.n. and I, sodium back calcium score transport inhibitor, potassium-sparing diuretic and beta blockade. Physical Exam General: No acute distress. Awake and conversant. Morbid obesity Neck: Neck is supple. No masses or thyromegaly, no JVD, No carotid bruit. Respiratory: Respirations are non-labored. Lungs are clear to auscultation. Skin: Warm. CV: Atrial flutter, Normal heart sounds, no murmurs. No lower extremity edema. Neuro: AAo x 4 Assessments: Aflutter with RVR Newly diagnosed NICM with EF 30% EP recommendations: It is unclear of onset for Aflutter as patient did not have EKG in the ED and was admitted as medsur status initially. All Physical exam documentation notes a regular rate and rhythm prior to findings of Atrial flutter in the color laboratory technician. HR previously noted controlled with acute jump in rate to the 120-130 range, now noted as atrial flutter. Pt also denies feeling any palpitations previously or currently. Attempted for rate control strategy using Metoprolol succinate 25mg BID, however rate control was not obtained. Continue with full AC with lovenox for CVA prophylaxis. Planned for DCCV with GEOFF, today 09/28/[address] Delfino Ngo Discussed plan of care with patient from EP perspective. All questions answered. She remains agreeable with POC. - NPO after MN - Amiodarone gtt started per Dr Ngo request until Procedure tomorrow. Remainder of Cardiac plan of care per primary cardiology. Management on telemetry with Cardiac monitoring Ongoing rate and rhythm surveillance Hemodynamic monitoring. Avoid hypertension and hypotension. Monitor and maintain electrolytes and renal function. Supplement as needed to maintain K > 4.0 and Mg > 2.0. Monitor Hgb and transfuse if Hgb < 7.0. Lifestyle and risk modification counseling All available labs, EKGs, and images were personally reviewed Patient's status, findings, and plan of care was discussed and reviewed with supervising physician Dr. Ngo, who is in agreement with current plan of care. Plan of care discussed with and agreed upon by the patient/Primary RN. Prognosis: Guarded Thank you for allowing me to participate in the care of this patient. Further recommendations will depend on clinical progression, hospitalist, and other consultants. Will continue to follow with Primary. If you have any questions, please do not hesitate to contact me. A total of 55 minutes was spent reviewing the patient record, examining the patient, making a diagnostic and therapeutic plan, discussing this plan with medical personnel, following up on diagnostic studies and following the patient for clinical stability including any and all procedures. At least 50% of this time was spent in direct, [id number] contact. Plan discussed with: Patient, Other (RN) Dietary Evaluation Review Comments: Continue current plan of care Expected Outcomes/Goals: F/U in 3-5 days Plan discussed with: Other (Patient/Family Memeber/Primary RN ) JOSE DANIEL OCHOA [facility] Sep 28, 2024 12:15
[2024-09-28] MEDS ORDERED: MIDAZOLAM HCL 5 MG/ML-1ML VIAL IM ONE (12:30)
[2024-09-28] MEDS: LIDOCAINE VISCOUS 2% 15ML UD PO ONE (13:38)
[2024-09-28] MEDS: MIDAZOLAM HCL 2MG/2ML 2ml VIAL (1mg/ml) IV ONE (13:50)
[2024-09-28] MEDS: fentaNYL CITRATE 100 MCG/2 ML VL IV ONE (13:50)
--- NOTE | 2024-09-28 16:49 | DVHPN2 ---
Assessment/Plan Assessment/Plan Progress note Subjective 59-year-old female admitted for left lower extremity pain and swelling, concern of PID. Incidentally found new onset heart failure with reduced ejection fraction. Patient was seen by Cardiology and went to lab manager today, however no significant stenosis found during left heart catheterization. Patient was seen by me during rounds today Pending GEOFF and DCCV today. HH stable. Objective Physical exam Alert, oriented x3 Speaking full sentences lying flat on stretcher Obese PERRLA JVD midneck Clear breath sounds bilaterally S1-S2 regular, tachycardic Abdomen soft nontender, no organomegaly Moving all four extremities Varicose veins on bilateral lower extremities, tender Lab BNP 144 trop neg LDL 103 Imaging cxr mild hazy interstitial opacity No DVT no stenosis Assessment and plan chronic systolic heart failure, not in exacerbation Newly diagnosed heart failure with reduced ejection fraction NICM aflutter Chronic venous insufficiency with varicose veins Lupus, not flared up Primary hypertension Morbid obesity Possible sleep apnea hematuria possible UTI Cardiac consult for ischemic workup Resume hydroxychloroquine Switch Lasix to p.o. tomorrow Patient will require outpatient workup for PAD and CVI Aspirin and high-intensity statin Initiate GDMT, BB not rate controlled, increase metoprolol to BID per EP for GEOFF and DCCV amio drip Continue with telemetry CPAP at night therapeutic lovenox, dc with ZENTICK[employer]d life vest bedside Replete electrolytes Diet heart healthy DVT prophylaxis therapeutic lovenox Plan discussed with: Patient Date of Service: Sep 28, 2024 Billing Provider: ALONSO LIRA MD Common Visit Codes: [id number] INP/OBS CARE(HIGH) ALONSO LIRA MD Sep 28, 2024 16:49
[2024-09-29] VITALS (9 sets, daily range): BP systolic 99–122; BP diastolic 55–84; PULSE 71–83; RESP 17–18; TEMP 97.6–98.4; O2SAT 93–97
--- NOTE | 2024-09-29 10:21 | DVHOP2 ---
Operative Report 09/28/24 GEOFF and cardioversion Dictated By: Delfino Ngo MD INDICATIONS: Aflutter with Rapid ventricular response PROCEDURES: 1. Transesophageal echocardiogram 2. Conscious sedation with fentanyl and Versed for an hour. PROCEDURE IN DETAILS: After obtaining informed consent with explanation of risk, benefits, and alternatives, the patient agreed upon the planned procedure, transesophageal echocardiogram. Under a standard fashion, local and systemic anesthetic, transesophageal echocardiogram probe was advanced in the esophagus. The following information was obtained: 1. Overall, left ventricular size is within normal range with ejection fraction in the range of 20%. RV size is mildly dilated with mild dysfunction. 2. Right atrial size is mildly dilated, LA size is severely dilated, without th rombus formation. VALENTINA is without thrombus, its very small size 3. Interatrial septum was evaluated by color doppler without PFO, 4. Mitral valve shows mild MAC with mild MR. 5. Aortic valve is mildly calcified, trileaflet, no 6. Tricuspid valve is structurally normal with mild tricuspid valve regurgitation. 7. Pulmonic valve is within normal range. 8. There is no significant pericardial effusion noted. 9. Aortic root showed, mild atherosclerotic plaque without complex features. CONCLUSION: EF is 20%, mild MR, mild TR, Recommendation : Proceed with Cardioversion After adequate sedation achieved, 200 bennett energy, biphasic, synchronized delivered to the chest and he successfully converted into sinus rhythm. DELFINO NGO MD Sep 29, 2024 10:21
--- NOTE | 2024-09-29 13:40 | DVHPN2 ---
Assessment/Plan Assessment/Plan Progress note Subjective 59-year-old female admitted for left lower extremity pain and swelling, concern of PID. Incidentally found new onset heart failure with reduced ejection fraction. Patient was seen by Cardiology and went to metallurgical laboratory assistant today, however no significant stenosis found during left heart catheterization. Patient was seen by me during rounds today s/p DCCV, sinus rhythm now, still on amio drip. Objective Physical exam Alert, oriented x3 Speaking full sentences lying flat on stretcher Obese PERRLA JVD midneck Clear breath sounds bilaterally S1-S2 RRR Abdomen soft nontender, no organomegaly Moving all four extremities Varicose veins on bilateral lower extremities, tender Lab BNP 144 trop neg LDL 103 Imaging cxr mild hazy interstitial opacity No DVT no stenosis Assessment and plan chronic systolic heart failure, not in exacerbation Newly diagnosed heart failure with reduced ejection fraction NICM aflutter Chronic venous insufficiency with varicose veins Lupus, not flared up Primary hypertension Morbid obesity Possible sleep apnea hematuria possible UTI Cardiac consult for ischemic workup Resume hydroxychloroquine Switch Lasix to p.o. tomorrow Patient will require outpatient workup for PAD and CVI Aspirin and high-intensity statin Initiate GDMT, BB not rate controlled, increase metoprolol to BID per EP for GEOFF and DCCV amio drip Continue with telemetry CPAP at night therapeutic lovenox, dc with [employer] life vest bedside Replete electrolytes Diet heart healthy DVT prophylaxis therapeutic lovenox Plan discussed with: Patient My Orders Orders - ALONSO LIRA MD Procedure Category Date Status Time Enoxaparin Sodium PHA 09/29/24 In Process (Lovenox) 22:00 Date of Service: Sep 29, 2024 Billing Provider: ALONSO LIRA MD Common Visit Codes: [id number] INP/OBS CARE(HIGH) ALONSO LIRA MD Sep 29, 2024 13:40
--- NOTE | 2024-09-29 16:58 | DVHPN2 ---
Progress Note - Dictate Date Seen: Sep 29, 2024 Medical Necessity Reason Pt with a Central, PICC or Fol: No vital signs Vital Sign Date Time Temp Pulse Resp B/P (MAP) Pulse Ox O2 Delivery O2 Flow Rate FiO2 09/29/24 16:38 97.8 78 18 99/55 (70) 94 97.8 09/29/24 07:41 Room Air* 0 21 Total Intake and Output 09/28/24 09/28/24 09/29/24 15:00 23:00 07:00 Intake Total 300 ml 800 ml Output Total 0 ml Balance 300 ml 800 ml medications Current Medications Medications Dose Ordered Sig/Vince Route Start Time Stop Time Status Last Admin Dose Admin Acetaminophen/ Hydrocodone Bitart 1 tab Q4HP PRN PO 09/23/24 15:00 09/24/24 18:45 1 TAB Ondansetron HCl 4 mg Q4HP PRN IV 09/23/24 15:00 Docusate Sodium 100 mg BIDPRN PRN PO 09/23/24 15:00 09/26/24 09:45 100 MG Acetaminophen 650 mg Q6HP PRN PO 09/23/24 15:00 Morphine Sulfate 2 mg Q4HPRN PRN IV 09/23/24 15:00 Atorvastatin Calcium 20 mg HS PO 09/23/24 22:00 09/28/24 20:57 20 MG Ibuprofen 800 mg Q8HP PO 09/23/24 22:00 09/27/24 21:23 800 MG Patient Own Medication 15 mg DAILY PO 09/24/24 10:00 Pantoprazole Sodium 40 mg DAILY PO 09/24/24 10:00 09/29/24 10:02 40 MG Patient Own Medication 200 mg QPM PO 09/25/24 18:00 UNV Hydroxychloroquine Sulfate 200 mg HS PO 09/24/24 22:00 09/28/24 21:09 200 MG Empaglifozin 10 mg DAILY PO 09/25/24 10:00 09/29/24 10:02 10 MG Sacubitril/ Valsartan 0.5 tab BID PO 09/25/24 10:00 09/29/24 10:03 0.5 TAB Spironolactone 12.5 mg DAILY PO 09/25/24 10:00 09/29/24 10:03 12.5 MG Furosemide 40 mg DAILY PO 09/27/24 10:00 12/14/24 10:01 40 MG Isosorbide Mononitrate 30 mg DAILY PO 09/27/24 10:00 09/29/24 10:04 30 MG Metoprolol Succinate 25 mg BID PO 09/26/24 22:00 09/29/24 10:05 25 MG Nitrofurantoin Macrocrystals 100 mg BID PO 09/27/24 14:32 09/29/24 10:02 100 MG Amiodarone HCl 250 ml @ 16.667 mls/ hr Q15H IV 09/27/24 20:45 09/29/24 03:29 16.667 MLS/HR Enoxaparin Sodium 120 mg Q12HR SC 09/29/24 22:00 laboratory and microbiology Laboratory Tests 09/28/24 06:09 Test 09/28/24 06:09 Range/Units Serum Glucose 101 74-106 mg/dL Assessment/Plan Lindsey Mcadams is a 59 y/o Female with hyperlipidemia, arthritis, lupus, morbid obesity and varicose veins presented to the ED originally for RLE pain and swelling x 1 weeks. She was admitted and evaluated by primary cardiology to find reduced EF and therefore underwent LHC at which time it was found that patient was in Atrial flutter. Pt denies prior know diagnosis of arrhythmia and states she is seen by Dr Ordonez as outpatient with most recent visit a couple of weeks ago. Pt has been placed on metoprolol succinate 25mg daily and therapeutic lovenox with EP consultation placed. Pt was originally admitted as medsurg status and therefore was not on telemetry for the first few days of admission. Additionally, patient did not have admission EKG performed therefore it is unclear if patient was in atrial flutter at time of admission or at what time she may have entered into it. Pt denies palpitations, current or past therefore symptomatology is not an indicator for onset either. At time of encounter, pt telemetry reveals Atrial flutter in the range of 114-127 bpm. TSH 1.84 K 4.5 Mg 2.1 Creat 1.01 ECHO: Conclusion Moderately dilated left ventricle. Severely reduced left ventricular systolic function estimated ejection fraction of 30%. In a global fashion. There is a grade diastolic dysfunction. Normal left ventricular size and dimension. Normal right ventricular systolic function. Normal biatrial size and dimension. Normal aortic valve structure and function. Normal mitral valve structure and function. Normal tricuspid valve structure and function. The pulmonary valve is grossly normal. No pericardial effusion. LHC: 1. Nonischemic cardiomyopathy as her coronary arteries did not show any significant atherosclerotic plaquing or discrete stenosis. 2. In addition to systolic heart failure the patient has underlying diastolic heart dysfunction with a quite elevated left ventricular end-diastolic pressure [id number] mm of mercury. 3. Patient was noted to be in atrial flutter during the procedure, is one of the differential diagnosis is tachycardia induced cardiomyopathy, we will recommend rate control strategy and anticoagulation in addition to goal-directed therapy for reduced left ventricular ejection fraction. 4. After optimization of medical therapy patient would need to be followed regularly in the outpatient clinic we will repeat echocardiography and possible MUGA scan is needed to assess improvement in ejection fraction after aggressive medical therapy with p.r.n. and I, sodium back calcium score transport inhibitor, potassium-sparing diuretic and beta blockade. Physical Exam General: No acute distress. Awake and conversant. Morbid obesity Neck: Neck is supple. No masses or thyromegaly, no JVD, No carotid bruit. Respiratory: Respirations are non-labored. Lungs are clear to auscultation. Skin: Warm. CV: Atrial flutter, Normal heart sounds, no murmurs. No lower extremity edema. Neuro: AAo x 4 Assessments: Aflutter with RVR Newly diagnosed NICM with EF 30% EP recommendations: It is unclear of onset for Aflutter as patient did not have EKG in the ED and was admitted as medsurg status initially. All Physical exam documentation notes a regular rate and rhythm prior to findings of Atrial flutter in the medical laboratory technician. HR previously noted controlled with acute jump in rate to the 120-130 range, now noted as atrial flutter. Pt also denies feeling any palpitations previously or currently. Attempted for rate control strategy using Metoprolol succinate 25mg BID, however rate control was not obtained. status post DCCV with GEOFF, 09/28/[address] Delfino Ngo - Amiodarone gtt infused post procedure with transition to oral Amiodarone 200mg PO BID this evening (09/29/24) - Continue with full AC with lovenox for CVA prophylaxis. Remainder of Cardiac plan of care per primary cardiology. Management on telemetry with Cardiac monitoring Ongoing rate and rhythm surveillance Hemodynamic monitoring. Avoid hypertension and hypotension. Monitor and maintain electrolytes and renal function. Supplement as needed to maintain K > 4.0 and Mg > 2.0. Monitor Hgb and transfuse if Hgb < 7.0. Lifestyle and risk modification counseling All available labs, EKGs, and images were personally reviewed Patient's status, findings, and plan of care was discussed and reviewed with supervising physician Dr. Ngo, who is in agreement with current plan of care. Plan of care discussed with and agreed upon by the patient/Primary RN. Prognosis: Guarded Thank you for allowing me to participate in the care of this patient. Further recommendations will depend on clinical progression, hospitalist, and other consultants. Will continue to follow with Primary. If you have any questions, please do not hesitate to contact me. A total of 55 minutes was spent reviewing the patient record, examining the patient, making a diagnostic and therapeutic plan, discussing this plan with medical personnel, following up on diagnostic studies and following the patient for clinical stability including any and all procedures. At least 50% of this time was spent in direct, [id number] contact. Dietary Evaluation Review Comments: Continue current plan of care Expected Outcomes/Goals: F/U in 3-5 days Plan discussed with: Patient, Other (RN) Provider Statement: I have reviewed the case with my supervising physician. We have agreed with the plan of care. ROSI LÓPEZ Sep 29, 2024 16:58
[2024-09-29] MEDS: AMIODARONE HCL 200 MG TAB PO SCH (21:33)
[2024-09-29] MEDS: ENOXAPARIN SOD 120 MG/0.8 ML SYRINGE SC SCH (21:34)
[2024-09-30] VITALS (7 sets, daily range): BP systolic 104–127; BP diastolic 49–69; PULSE 67–73; RESP 16–19; TEMP 97.5–98.4; O2SAT 95–100
[2024-09-30] MEDS: fentaNYL CITRATE 100 MCG/2 ML VL ONE (07:35)
[2024-09-30] MEDS: LIDOCAINE VISCOUS 2% 15ML UD ONE (07:35)
[2024-09-30] MEDS: MIDAZOLAM HCL 2MG/2ML 2ml VIAL (1mg/ml) ONE (07:35)
[2024-09-30] MEDS ORDERED: NITR-87 PO (15:14)
[2024-09-30] MEDS ORDERED: SPIR25TA PO (15:14)
[2024-09-30] MEDS ORDERED: EMPA1TAB PO (15:14)
[2024-09-30] MEDS ORDERED: SACU1TAB PO (15:14)
[2024-09-30] MEDS ORDERED: AMIO200T13 PO (15:14)
[2024-09-30] MEDS ORDERED: FURO40TA4 PO (15:14)
[2024-09-30] MEDS ORDERED: ISO60SRT PO (15:14)
[2024-09-30] MEDS ORDERED: METO-6 PO (15:14)
--- NOTE | 2024-09-30 15:17 | DVHDS2 ---
Discharge Summary Date of Admission Sep 23, 2024 at 14:57 Date of Discharge: Sep 30, 2024 Labs/Diagnostic Data: Laboratory Results Test 09/28/24 06:09 09/27/24 14:19 09/27/24 05:46 09/27/24 05:05 White Blood Count 7.4 10^3/uL (4.4-10.8) Red Blood Count 5.08 10^6/uL (4.0-5.20) Hemoglobin 15.8 g/dL (12.2-16.2) Hematocrit 45.5 % (36.0-46.0) Mean Corpuscular Volume 89.5 fL (80.0-100.0) Mean Corpuscular Hemoglobin 31.1 pg (28.0-32.0) Mean Corpuscular Hemoglobin Concent 34.8 g/dL (32.0-36.0) Red Cell Distribution Width 13.6 % (11.8-14.3) Platelet Count 277 10^3/uL (140-450) Mean Platelet Volume 8.0 fL (6.9-10.8) Neutrophils (%) (Auto) 59.2 % (37.0-80.0) Lymphocytes (%) (Auto) 27.5 % (10.0-50.0) Monocytes (%) (Auto) 9.0 % (0.0-12.0) Eosinophils (%) (Auto) 3.6 % (0.0-7.0) Basophils (%) (Auto) 0.7 % (0.0-2.0) Neutrophils # (Auto) 4.4 10 ^3/uL (1.6-8.6) Lymphocytes # (Auto) 2.0 10 ^3/uL (0.4-5.4) Monocytes # (Auto) 0.7 10 ^3/uL (0-1.3) Eosinophils # (Auto) 0.3 10 ^3/uL (0-0.8) Basophils # (Auto) 0.1 10 ^3/uL (0-0.2) Nucleated Red Blood Cells 0.8 % Sodium Level 141 mmol/L (136-145) Potassium Level 3.5 mmol/L (3.5-5.1) Chloride Level 105 mmol/L (98-107) Carbon Dioxide Level 25 mmol/L (20-31) Anion Gap 11 (5-15) Blood Urea Nitrogen 20 mg/dL (9-23) Creatinine 0.88 mg/dL (0.550-1.02) Glomerular Filtration Rate Calc 75 mL/min (>90) BUN/Creatinine Ratio 22.7 (10.0-20.0) Serum Glucose 101 mg/dL (74-106) Calcium Level 10.6 mg/dL (8.7-10.4) Prothrombin Time 11.3 sec (9.3-11.8) Prothrombin Time INR 1.07 (0.9-1.15) Activated Partial Thromboplast Time 32.4 SEC (24.5-34.5) Total Bilirubin 1.1 mg/dL (0.2-1.0) Aspartate Amino Transferase (AST) 9 U/L (13-40) Alanine Aminotransferase (ALT) 26 U/L (7-40) Alkaline Phosphatase 79 U/L (46-116) Total Protein 6.7 g/dL (5.7-8.2) Albumin 4.3 g/dL (3.2-4.8) Urine Color Light-red (Yellow) Urine Clarity Cloudy (Clear) Urine pH 6.5 (5.0-9.0) Urine Specific [place] 1.017 (1.001-1.035) Urine Protein 2+ (Negative) Urine Ketones Negative (Negative) Urine Blood 3+ /uL (Negative) Urine Nitrite Negative (Negative) Urine Bilirubin Negative (Negative) Urine Urobilinogen Normal mg/dL (Negative) Urine Leukocyte Esterase 3+ /uL (Negative) Urine RBC 3208 /hpf (0 - 4) Urine WBC 2055 /hpf (0 - 5) Urine WBC Clumps Present /hpf (None Seen) Urine Squamous Epithelial Cells Mod /hpf (<5) Urine Bacteria Many /hpf (None Seen) Urine Glucose 3+ mg/dL (Normal) Test 09/25/24 05:36 09/23/24 14:31 09/23/24 11:23 Hemoglobin A1c 5.1 % A1C (<5.7) Magnesium Level 2.1 mg/dL (1.6-2.6) Triglycerides Level 128 mg/dL (< 150) Cholesterol Level 170 mg/dL (< 200) LDL Cholesterol 103 mg/dL (< 100) HDL Cholesterol 47 mg/dL (40-59) Thyroid Stimulating Hormone (TSH) 1.84 uIU/mL (0.55-4.78) Troponin I High Sensitivity 10 ng/L (</=34) B-Type Natriuretic Peptide 144.73 pg/mL (0-100) Other Laboratory Tests 09/28/24 06:09 Brief Hx & Hospital Course: 59 F admitted for leg swelling likely CVI, found to have HFrEF 15%, LHC with no obs, afib with RVR, seen by cardio and EP, GEOFF done and s/p DCCV, amio and now converted to oral meds, lifevest bedside. Patient to follow up with PCP, cardiology and EP and vascular surgeon Condition at Discharge: Good Final Diagnosis/Problems List HFrEF afib RVR PAD Discharge Disposition: Home Discharge Instruct/Medications Diet: Cardiac 2g Na,low cholest Activity: No Restrictions, As Tolerated Follow Up/Referral: EP Cardiology PCP vascular surgeon Medications: macrobid amiodarone lasix aldactone metoprolol succinate entresto jardiance 33 Discharge Statement: "Patient was advised to return to the ER or call 911 if any headaches, dizziness, shortness of breath, chest pain, abdominal pain, bleeding, fevers, or worsening of medical condition. Patient was counseled about treatment plan, medications, possible side effects, patientverbalized understanding. All questions were answered to the best of my ability. This discharge took greater then 30 minutes in planning, reviewing documentation, counseling the patient, and discussing with other team members." ASSESSMENT ASSESSMENT Assessment chronic systolic heart failure, not in exacerbation Newly diagnosed heart failure with reduced ejection fraction NICM aflutter Chronic venous insufficiency with varicose veins Lupus, not flared up Primary hypertension Morbid obesity Possible sleep apnea hematuria possible UTI Date of Service: Sep 30, 2024 Billing Provider: ALONSO LIRA MD Common Visit Codes: 89634-JDI/OBS DISCH DAY >30min ALONSO LIRA MD Sep 30, 2024 15:17
--- NOTE | 2024-10-01 11:07 | ECG ---
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
== END 2024-09-30 18:10 | disposition home or self-care (01) | DRG 287 ==
LOC: ER 10:44 → OVERFLOW 14:57 → EAST 22:10 → TELE-E-ADS 09-25 13:10
PROVIDERS: ATTEND Student in an Organized Health Care Education/Training Program
PROC: 4A023N7 Measurement of Cardiac Sampling and Pressure, Left Heart, Percutaneous Approach (ICD-10-PCS; principal; 2024-09-25)
PROC: B211YZZ Fluoroscopy of Multiple Coronary Arteries using Other Contrast (ICD-10-PCS; 2024-09-25)
PROC: 5A09357 Assistance with Respiratory Ventilation, Less than 24 Consecutive Hours, Continuous Positive Airway Pressure (ICD-10-PCS; 2024-09-26)
PROC: 5A2204Z Restoration of Cardiac Rhythm, Single (ICD-10-PCS; 2024-09-28)
PROC: B24BZZ4 Ultrasonography of Heart with Aorta, Transesophageal (ICD-10-PCS; 2024-09-28)
DX: I80.8 Phlebitis and thrombophlebitis of other sites (principal); N39.0 Urinary tract infection, site not specified; I50.22 Chronic systolic (congestive) heart failure; Z68.41 Body mass index [BMI] 40.0-44.9, adult; I48.92 Unspecified atrial flutter; I42.0 Dilated cardiomyopathy; I48.91 Unspecified atrial fibrillation; I11.0 Hypertensive heart disease with heart failure; I73.9 Peripheral vascular disease, unspecified; I87.2 Venous insufficiency (chronic) (peripheral); F17.210 Nicotine dependence, cigarettes, uncomplicated; E66.01 Morbid (severe) obesity due to excess calories; I83.91 Asymptomatic varicose veins of right lower extremity; E78.5 Hyperlipidemia, unspecified; R31.9 Hematuria, unspecified; Z88.0 Allergy status to penicillin; Z79.1 Long term (current) use of non-steroidal anti-inflammatories (NSAID); Z79.899 Other long term (current) drug therapy; Z79.82 Long term (current) use of aspirin
CPT/HCPCS: 36415; 71045; 80048; 80053; 80061; 81001; 83036; 83735; 83880; 84443; 84484; 85025; 85610; 85730; 92960; 93005; 93306; 93312; 93458; 93925; 93971; 94660; 96372; 96374; 99152; G0378; J1885; J2250; J2405; Q9967

== ENCOUNTER → 2024-12-14 | Outpatient (CLI) | payer OTHER ==
[~2024-12-14] MED LIST changes: -ACET1CAP14 PO; +AMIO200T13 PO; -BACDST PO; -CARB1CAP PO; -DILT120T8 PO; +EMPA1TAB PO; +FURO40TA4 PO; +HYDR200T36 PO; -IBUP-1456 PO; +ISO60SRT PO; -MELO15TA29 PO; +METO-6 PO; +NITR-87 PO; -OMEP20TA PO; -RANO1000 PO; +RANO500T3 PO; +SACU1TAB PO; +SPIR25TA PO
[2024-12-14 08:46] LABS: Alanine Aminotransferase 30 U/L (7-40); Alkaline Phosphatase 82 U/L (46-116); Anion Gap 8 (5-15); Aspartate Aminotransferase 15 U/L (13-40); BUN/Creatinine Ratio 22.4 (10.0-20.0); Carbon Dioxide 30 mmol/L (20-31); Chloride 103 mmol/L (98-107); Cholesterol 200 mg/dL (< 200); Glucose 96 mg/dL (74-106); Potassium 4.5 mmol/L (3.5-5.1); Sodium 141 mmol/L (136-145); Triglycerides 123 mg/dL (< 150)
[2024-12-14 08:47] LABS: Albumin 4.9 g/dL (3.2-4.8); Bilirubin, Total 0.7 mg/dL (0.2-1.0); Blood Urea Nitrogen 26 mg/dL (9-23); Calcium 10.7 mg/dL (8.7-10.4); HDL Cholesterol 63 mg/dL (40-59); LDL Cholesterol 117 mg/dL (< 100); Total Protein 7.3 g/dL (5.7-8.2)
[2024-12-14 09:21] LABS: Basophils # (auto) 0.1 10 ^3/uL (0-0.2); Eosinophils # (auto) 0.2 10 ^3/uL (0-0.8); Eosinophils % (auto) 3.4 % (0.0-7.0); Follicle Stimulating Hormone 45.09 IU/L (SEE BELOW); Hematocrit 46.7 % (36.0-46.0); Hemoglobin 15.6 g/dL (12.2-16.2); Leuteinizing Hormone 17.8 IU/L; Lymphocytes # (auto) 1.6 10 ^3/uL (0.4-5.4); Lymphocytes % (auto) 25.8 % (10.0-50.0); Mean Corpuscular Hemoglobin 30.8 pg (28.0-32.0); Mean Corpuscular Hgb Conc. 33.4 g/dL (32.0-36.0); Mean Corpuscular Volume 92.3 fL (80.0-100.0); Monocytes # (auto) 0.5 10 ^3/uL (0-1.3); Monocytes % (auto) 8.6 % (0.0-12.0); Neutrophils # (auto) 3.7 10 ^3/uL (1.6-8.6); Neutrophils % (auto) 61.2 % (37.0-80.0); Platelet Count (auto) 290 10^3/uL (140-450); Red Blood Cells 5.05 10^6/uL (4.0-5.20); Red Cell Distribution Width 13.7 % (11.8-14.3); White Blood Cell 6.1 10^3/uL (4.4-10.8)
[2024-12-14 10:42] LABS: Free T4 (Free Thyroxine) 1.44 ng/dL (0.89-1.76)
== END | disposition home or self-care (01) ==
LOC: LAB 07:30
PROVIDERS: ATTEND Urology
DX: N39.0 Urinary tract infection, site not specified (principal)
CPT/HCPCS: 36415; 80053; 80061; 82306; 82670; 83001; 83002; 84144; 84403; 84439; 84443; 85025

== ENCOUNTER 2025-05-19 15:24 | Inpatient (IN) | payer OTHER ==
[~2025-05-19] VITALS: Ht 175.3 cm; Wt 61.8 kg
--- NOTE | 2025-05-19 16:12 | DVH ---
EXAM DESCRIPTION: CT CT AB PEL WO CON-NO ORAL OR IV CLINICAL HISTORY: Right upper quadrant pain COMPARISON: None TECHNIQUE: CT abdomen and pelvis without IV contrast was performed. Coronal and sagittal MPR images were generat ed.CTDI/ DLP = 27.88 / 3.92 Dose reduction technique with one or more of the following methods was performed: Automated exposure control, adjustment of the mA and/or kV according to patient size, use of iterative reconstruction te chnique FINDINGS: Lower chest: Clear lung bases. Liver: Homogenous in attenuation. . Biliary: Moderately distended gallbladder with a few small gallstones near the gallbladder neck. No b iliary ductal dilatation. Pancreas: No fat stranding or focal lesion. Spleen: Normal in size.. Adrenal glands: No nodularity. No nodularity Kidneys: 8 mm calculus in the right kidney. No right-sided hydronephrosis. 15 mm calculus in the left renal pelvis with moderate left renal calyceal dilation. There is severe cortical thickening of the left kidney and moderate cortical thickening of the right kidney. There is mild stranding around the left renal pelvis stone. No hydroureteronephrosis. . Bladder: Underdistended, limiting evaluation. Reproductive organs: Normal. Bowel: No bowel wall thickening or dilatation. Colonic diverticulosis without evidence of diverticuli tis. Normal appendix.. Peritoneum: No free fluid. No free air. Vessels: Normal caliber abdominal aorta. Moderate atherosclerotic calcifications.. Lymph nodes: No suspicious lymph nodes. Soft tissues: Unremarkable. . Osseous structures: No acute fracture or subluxation. No suspicious osseous lesions. Degenerative c hanges of the visualized thoracolumbar spine. IMPRESSION: 1. Moderately distended gallbladder with a few small gallstones near the gallbladder neck. Recommend further evaluation with right quadrant ultrasound. 2. A 15 mm calculus in the left renal pelvis with moderate left renal calyceal dilation and severe le ft renal cortical thinning, likely due to chronic obstruction. 3. Moderate cortical thinning of the right kidney with 8 mm nonobstructing right renal calculus. 4. Moderate atherosclerotic vascular disease.
[2025-05-19 16:18] LABS: Hematocrit 43.7 % (36.0-46.0); Hemoglobin 15.2 g/dL (12.2-16.2); Mean Corpuscular Hemoglobin 31.9 pg (28.0-32.0); Mean Corpuscular Volume 91.6 fL (80.0-100.0); Nucleated Red Blood Cells % 0.1 %
[2025-05-19 16:28] LABS: Alanine Aminotransferase 26 U/L (7-40); Albumin 4.7 g/dL (3.2-4.8); Alkaline Phosphatase 78 U/L (46-116); Anion Gap 8 (5-15); BUN/Creatinine Ratio 20.0 (10.0-20.0); Calcium 9.6 mg/dL (8.7-10.4); Carbon Dioxide 28 mmol/L (20-31); Chloride 106 mmol/L (98-107); Glucose 94 mg/dL (74-106); Lipase 43 U/L (12-53); Potassium 4.0 mmol/L (3.5-5.1); Sodium 142 mmol/L (136-145); Total Protein 6.8 g/dL (5.7-8.2)
[2025-05-19 16:29] LABS: Bilirubin, Total 0.7 mg/dL (0.2-1.0)
[2025-05-19 16:30] LABS: Blood Urea Nitrogen 26 mg/dL (9-23)
--- NOTE | 2025-05-19 17:06 | DVH ---
EXAM DESCRIPTION: US ABDOMEN LIMITED CLINICAL HISTORY: Right upper quadrant/gallbladder evaluation COMPARISON: CT CT AB PEL WO CON-NO ORAL OR IV on DOS: 05/19/25, US RT LOWER DVT on DOS: 09/23/24 TECHNIQUE: Using real-time ultrasonography multiple images of the abdomen were obtained. FINDINGS: The liver measures 16.7 cm. No focal liver masses. The liver is diffiusely increased in echongenicity. The pancreas is obscured by shadowing bowel gas. Stones and sludge in the gallbladder. No gallbladder wall thickening. No pericholecystic fluid. Negat rajinder sonographic Vaz sign. The common bile duct measures 6 mm in diameter. There is no free intraperitoneal fluid. The right kidney measures 13.1 cm. The left kidney measures 14.2cm, but is not well visualized. 8mm r ight renal calculus. IMPRESSION: 1. Cholelithiasis and gallbladder sludge without evidence of acute cholecystitis. 2. Hepatic steatosis. 3. An 8 mm right renal calculus.
[2025-05-19 19:32] LABS: Urine Protein, UAD 1+ (Negative); Urine WBC Clumps PRESENT /hpf (None Seen)
--- NOTE | 2025-05-19 20:29 | ED.PDOC ---
GI ASSESSMENT HPI Comments The patient is a pleasant but severely morbidly obese 59-year-old female who arrives the ED today for evaluation of significant right upper quadrant pain concerns that began yesterday and worsened this morning. Patient denies any history of gallbladder or liver concerns. Patient states the pain came on and has been relatively unrelenting. Patient states intermittent nausea without vomiting. Patient was bradycardic at arrival. Chief Complaint: Abdominal Pain Time Seen by MD: 15:28 Primary Care Provider: jones Reviewed Notes: Nurses Notes Allergies: Coded Allergies: Penicillins (Unverified Allergy, Unknown, 09/13/16) Home Meds Active Scripts Spironolactone (Aldactone) 25 Mg Tab, 12.5 MG PO DAILY for 30 Days, #15 TAB Prov:ALONSO LIRA MD 09/30/24 Sacubitril-Valsartan (Entresto 24-26 mg) 1 Tab Tab, 0.5 TAB PO BID for 30 Days, #30 TAB Prov:ALONSO LIRA MD 09/30/24 Nitrofurantoin Monohydrate Mac (Macrobid) 100 Mg Cap, 100 MG PO BID for 4 Days, #8 CAP Prov:ALONSO LIRA MD 09/30/24 Metoprolol Succinate (Toprol Xl) 50 Mg Tab, 25 MG PO BID for 30 Days, #30 TAB Prov:ALONSO LIRA MD 09/30/24 Isosorbide Mononitrate (Isosorbide Mononitrate ER) 60 Mg Tab, 30 MG PO DAILY for 30 Days, #15 TAB Prov:ALONSO LIRA MD 09/30/24 Furosemide (Furosemide) 40 Mg Tab, 40 MG PO DAILY for 30 Days, #30 TAB Prov:ALONSO LIRA MD 09/30/24 Empagliflozin (Jardiance) 10 Mg Tab, 10 MG PO DAILY for 30 Days, #30 TAB Prov:ALONSO LIRA MD 09/30/24 Amiodarone HCl (Amiodarone HCl) 200 Mg Tab, 200 MG PO Q12HR for 30 Days, #60 TAB Prov:ALONSO LIRA MD 09/30/24 Atorvastatin Calcium (ATORVASTATIN CALCIUM) 20 Mg Tab, 20 MG PO HS for 30 Days, #30 TAB Prov:KEERTHI ALMANZAR MD 12/02/21 Reported Medications Omeprazole (Omeprazole Dr) 20 Mg Cap, 1 CAP PO DAILY for 90 Days, #90 09/25/24 Semaglutide (Ozempic) 2 Mg/3 Ml Inj, 0.5 MG SC QWEEKLY for 28 Days, #3 09/25/24 Hydroxychloroquine Sulfate (Hydroxychloroquine Sulfat) 200 Mg Tab, 1 TAB PO DAILY 09/23/24 Ranolazine (Ranolazine ER) 500 Mg Tab, 1 TAB PO BID 09/23/24 Spironolactone (Spironolactone) 25 Mg Tab, 25 MG PO DAILY, TAB 07/22/22 Aspirin (Aspirin Low Dose) 81 Mg Chw, 81 MG PO DAILY, TAB.CHEW 07/22/22 Information Source: Patient Mode of Arrival: Ambulatory Timing: Days Duration: Since onset Prehospital treatment: None Quality: Aching, Cramping, Sharp Vomitus: None Severity: Moderate Recent: None Recent Hx of: None Pain Location: RUQ Associated sign and symptoms: Nausea, Abdominal Pain Past Medical History PAST MEDICAL HISTORY: Arthritis, High Lipids, HTN Surgical History: OR FIRST ASSIST REGISTERED NURSE History: Denies all OR FIRST ASSIST REGISTERED NURSE Hx Family History Family History: Reviewed,noncontributory to illness Family History (Other): DVT Social History Smoker: Cigarettes Alcohol: Occasionally Drugs: Denies Drug Use Lives In: Home Constitutional: denies: chills, diaphoresis, fatigue, fever, malaise, sweats, weakness, others EENTM: denies: blurred vision, double vision, ear bleeding, ear discharge, ear drainage, ear pain, ear ringing, eye pain, eye redness, hearing loss, mouth pain, mouth swelling, nasal discharge, nose bleeding, nose congestion, nose pain, photophobia, tearing, throat pain, throat swelling, voice changes, others Respiratory: denies: cough, hemoptysis, orthopnea, SOB at rest, shortness of breath, SOB with excertion, stridor, wheezing, others Cardiovascular: denies: chest pain, dizzy spells, diaphoresis, Dyspnea on e xertion, edema, irregular heart beat, left arm pain, lightheadedness, palpitations, PND, syncope, others Gastrointestinal: reports: abdominal pain, nausea; denies: abdomen distended, blood streaked bowels, constipated, diarrhea, dysphagia, difficulty swallowing, hematemesis, melena, poor appetite, poor fluid intake, rectal bleeding, rectal pain, vomiting, others Genitourinary: denies: abnormal vagina bleeding, burning, dyspareunia, dysuria, flank pain, frequency, hematuria, incontinence, pain, , vagina discharge, urgency, others Neurological: denies: dizziness, fainting, headache, left sided numbness, left sided weakness, numbness, paresthesia, pre-existing deficit, right sided numbness, right sided weakness, seizure, speech problems, tingling, tremors, weakness, others Musculoskeletal: denies: back pain, gout, joint pain, joint swelling, muscle pain, muscle stiffness, neck pain, others Integumetry: denies: bruises, change in color, change in hair/nails, dryness, laceration, lesions, lumps, rash, wounds, others Allergic/Immunocompromised: denies: Difficulty Healing, Frequent Infections, Hives, Itching, others Hematologic/Lymphatic: denies: anemia, blood clots, easy bleeding, easy bruis ing, swollen glands, others Endocrine: denies: excessive hunger, excessive sweating, excessive thirst, exc essive urination, flushing, intolerance to cold, intolerance to heat, unexplained weight gain, unexplained weight loss, others Psychiatric: denies: anxiety, bipolar disorder, depression, hopeless, panic disorder, schizophrenia, sleepless, suicidal, others Physical Exam General Appearance: Moderate Distress (Due to right upper quadrant pain), Obese HEENT: Normal ENT Inspection, Pharynx Normal, TMs Normal Neck: Full Range of Motion, Non-Tender, Normal, Normal Inspection Respiratory: Chest Non-Tender, Lungs Clear, No Accessory Muscle Use, No Respiratory Distress, Normal Breath Sounds Cardiovascular: No Edema, No JVD, No Murmur, No Gallop, Normal Peripheral Pulses, Regular Rate/Rhythm Breast Exam: Deferred Gastrointestinal: Other (Exquisitely tender to palpation throughout the right upper quadrant with the appreciation of probable hepatomegaly. No signs of trauma. Difficult to assess due to body habitus.) Genitalia: Deferred Pelvic: Deferred Rectal: Deferred Extremities: No calf tenderness, Normal capillary refill, Normal inspection, Normal range of motion, Non-tender, No pedal edema Neurologic: Alert, No Motor Deficits, Normal Affect, Normal Mood, No Sensory Deficits Cerebellar Function: NOT DONE Reflexes: NOT DONE Skin: Dry, Normal Color, Warm Lymphatic: No Adenopathy Was a procedure done? Was a procedure done?: No GI differential Dx Differential Diagnosis: Bowel Obstruction, Cholangitis, Cholecystitis, Constipation, Gastritis/PUD, Gastroenteritis, Pancreatitis, UTI X-Ray, Labs, Meds, VS Vital Signs Date Time Temp Pulse Resp B/P (MAP) Pulse Ox O2 Delivery O2 Flow Rate FiO2 05/19/25 15:35 55 05/19/25 15:25 97.4 56 15 143/54 96 97.4 Lab Test 05/19/25 17:35 05/19/25 16:50 05/19/25 16:00 Range/Units Urine Color Brown H Yellow Urine Clarity Ex.turbid Clear Urine pH 5.5 5.0-9.0 Urine Specific [place] 1.015 1.001-1.035 Urine Protein 1+ H Negative Urine Ketones Negative Negative Urine Blood 3+ H Negative /uL Urine Nitrite Negative Negative Urine Bilirubin Negative Negative Urine Urobilinogen Normal Negative mg/dL Urine Leukocyte Esterase 3+ Negative /uL Urine RBC 195 0 - 4 /hpf Urine WBC Clumps Present None Seen /hpf Urine Microscopic WBC 3666 H 0-5 /HPF Urine Squamous Epithelial Cells Mod <5 /hpf Urine Bacteria Few H None Seen /hpf Urine Mucus Few None Seen Urine Glucose Normal Normal mg/dL Troponin I High Sensitivity 5 4 </=34 ng/L White Blood Count 7.2 4.4-10.8 10^3/uL Red Blood Count 4.77 4.0-5.20 10^6/uL Hemoglobin 15.2 12.2-16.2 g/dL Hematocrit 43.7 36.0-46.0 % Mean Corpuscular Volume 91.6 80.0-100.0 fL Mean Corpuscular Hemoglobin 31.9 28.0-32.0 pg Mean Corpuscular Hemoglobin Concent 34.9 32.0-36.0 g/dL Red Cell Distribution Width 13.0 11.8-14.3 % Platelet Count 271 140-450 10^3/uL Mean Platelet Volume 7.5 6.9-10.8 fL Neutrophils (%) (Auto) 67.3 37.0-80.0 % Lymphocytes (%) (Auto) 19.5 10.0-50.0 % Monocytes (%) (Auto) 10.0 0.0-12.0 % Eosinophils (%) (Auto) 2.5 0.0-7.0 % Basophils (%) (Auto) 0.7 0.0-2.0 % Neutrophils # (Auto) 4.9 1.6-8.6 10 ^3/uL Lymphocytes # (Auto) 1.4 0.4-5.4 10 ^3/uL Monocytes # (Auto) 0.7 0-1.3 10 ^3/uL Eosinophils # (Auto) 0.2 0-0.8 10 ^3/uL Basophils # (Auto) 0.1 0-0.2 10 ^3/uL Nucleated Red Blood Cells 0.1 % Sodium Level 142 136-145 mmol/L Potassium Level 4.0 3.5-5.1 mmol/L Chloride Level 106 98-107 mmol/L Carbon Dioxide Level 28 20-31 mmol/L Anion Gap 8 5-15 Blood Urea Nitrogen 26 H 9-23 mg/dL Creatinine 1.30 H 0.550-1.02 mg/dL Glomerular Filtration Rate Calc 47 >90 mL/min BUN/Creatinine Ratio 20.0 10.0-20.0 Serum Glucose 94 74-106 mg/dL Lactic Acid Level 1.2 0.4-2.0 mmol/L Calcium Level 9.6 8.7-10.4 mg/dL Total Bilirubin 0.7 0.2-1.0 mg/dL Aspartate Amino Transferase (AST) 17 13-40 U/L Alanine Aminotransferase (ALT) 26 7-40 U/L Alkaline Phosphatase 78 46-116 U/L B-Type Natriuretic Peptide 31.67 0-100 pg/mL Total Protein 6.8 5.7-8.2 g/dL Albumin 4.7 3.2-4.8 g/dL Lipase 43 12-53 U/L X-Ray, Labs, Meds, VS Comment All studies performed the ED were evaluated by me personally. Patient's serum laboratories revealed what appears to be in acute renal injury and urinalysis confirmed a significant urinary tract infection. While cardiac markers were unremarkable, EKG revealed a junctional rhythm with a rate of 55. Right bundle- branch block and possible old inferior infarct noted. QT interval of 499. CT evaluation revealed a moderately distended gallbladder with a few gallstones nearly gallbladder neck. Recommended ultrasound. Additional findings on CT were remarkable for a 15 mm calculus in the left renal pelvis with moderate left renal calyceal dilation and severe left renal cortical thinning. Moderate cortical thinning of the right kidney with 8 mm nonobstructing right renal calculi was noted. Ultrasound did not confirm a cholecystitis event, but due to the patient's pain level as well as her near uroseptic concerns. Patient will be admitted for evaluation of possible gallbladder concerns and IV antibiotics to address her UTI event. Time of 1ST Reevaluation: 20:27 Reevaluation 1ST: Improved Consultation: PCP Patient Education/Counseling: Diagnosis, Treatment Family Education/Counseling: Diagnosis, Treatment SEPSIS Sepsis Screen Date sepsis recognized/suspect: May 19, 2025 Time Sepsis recognized/suspect: 1526 Recent Procedure: No On Antibiotic Therapy: No Respiratory Rate >20: No Heart Rate >90: No Temp<36 C (96.8 F) or >38.3 C: No SBP <90 or MAP <65 mmHG: No New Acute Mental Status Change: No Is the patient on CPAP, BIPAP,: No Physician Orders Electrocardigram (05/19/25 15:28) Heplock Iv (05/19/25 ) Ct Ab Pel Wo Con-No Oral Or Iv (05/19/25 15:32) Abdomen Limited (05/19/25 16:17) Ceftriaxone Ivpb Rocephin (05/19/25 20:30) Vital Signs Date Time Temp Pulse Resp B/P (MAP) Pulse Ox O2 Delivery O2 Flow Rate FiO2 05/19/25 15:35 55 05/19/25 15:25 97.4 56 15 143/54 96 97.4 Laboratory Tests Test 05/19/25 16:00 Lactic Acid Level 1.2 mmol/L (0.4-2.0) White Blood Count 7.2 10^3/uL (4.4-10.8) Departure 1 Departure Time of Disposition: 20:27 Impression: Primary Impression: Gallbladder anomaly Additional Impression: UTI (urinary tract infection) Disposition: 09 ADMITTED INPATIENT Condition: Stable Discharged With: Self Critical Care Note Critical Care Time?: No Stability Stability form required: No Heart Score Heart Score: Heart Score Response (Comments) Value History Slightly Suspicious 0 EKG Repolarization Disturb 1 Age 45-64 1 Risk Factors 1 or 2 risk factors 1 Troponin Normal limit 0 Total 3 RIGOBERTO COLIN PAC May 19, 2025 20:29
[2025-05-19] MEDS ORDERED: ACETAMINOPHEN 325 MG TAB PO PRN (22:45)
[2025-05-19] MEDS ORDERED: TEMAZEPAM 15 MG CAP PO PRN (22:45)
[2025-05-20] VITALS (8 sets, daily range): BP systolic 106–179; BP diastolic 50–96; PULSE 52–66; RESP 18–19; TEMP 97.7–98.5; O2SAT 96–98
[2025-05-20] MEDS: cefTRIAXone 1GM/50ML D5W 50 ML IV ONE (00:15)
[2025-05-20] MEDS: ONDANSETRON HCL 4 MG/2 ML VIAL IV ONE (00:16)
[2025-05-20] MEDS: HYDROmorphone HCL 2 MG/ML VL/or syr IV ONE (00:18)
[2025-05-20] MEDS: ONDANSETRON HCL 4 MG/2 ML VIAL IV PRN (01:36)
--- NOTE | 2025-05-20 05:05 | DVHHP2 ---
History of Present Illness Reason for Visit: Abdominal pain History of Present Illness 59-year-old female presents for evaluation of abdominal pain. Patient endorses a one day history of right upper quadrant abdominal pain that radiates to her back. She reports nausea without emesis. No fever or chills. No cardiac or respiratory complaints. Past Medical History Arthritis, dyslipidemia, hypertension Family History Smoke: <1 pack per day ALCOHOL: occassional Drugs: None Lives: with Family Review of Systems Review of Systems Review of systems are currently negative otherwise addressed in HPI. Allergies: Coded Allergies: Penicillins (Unverified Allergy, Unknown, 09/13/16) Medications Current Medications Medications Dose Ordered Sig/Vince Route Start Time Stop Time Status Last Admin Dose Admin Isosorbide Mononitrate 60 mg DAILY PO 05/20/25 10:00 Atorvastatin Calcium 40 mg HS PO 05/20/25 22:00 Ranolazine 500 mg BID PO 05/20/25 10:00 Sacubitril/ Valsartan 1 tab BID PO 05/20/25 10:00 Spironolactone 25 mg DAILY PO 05/20/25 10:00 Furosemide 40 mg DAILY PO 05/20/25 10:00 Ceftriaxone Sodium 50 ml @ 100 mls/hr DAILY@09 IV 05/20/25 09:00 Pantoprazole Sodium 40 mg DAILY IV 05/20/25 10:00 Acetaminophen/ Hydrocodone Bitart 1 tab Q4HP PRN PO 05/19/25 22:45 Temazepam 15 mg QHSP PRN PO 05/19/25 22:45 Ondansetron HCl 4 mg Q4HP PRN IV 05/19/25 22:45 05/20/25 01:36 4 MG Acetaminophen 650 mg Q6HP PRN PO 05/19/25 22:45 Exam Vital Signs Vital Signs Date Time Temp Pulse Resp B/P (MAP) Pulse Ox O2 Delivery O2 Flow Rate FiO2 05/20/25 01:20 97.8 59 18 179/96 (123) 96 97.8 Exam Gen: 59-year-old female in mild Skin: Warm, dry, normal color and texture, no rash. HEENT: Normocephalic atraumatic, mucous membranes moist and pink. Neck: Cervical and supraclavicular nodes normal without enlargement, trachea is midline, thyroid gland is normal without masses. Pulmonary: Clear to auscultation and percussion bilaterally. Cardiac: Regular rate and rhythm. No murmur Abdomen: Soft, nontender, nondistended, bowel sounds present all 4 quadrants, no guarding, no rigidity, no organomegaly. Extremities: No cyanosis, clubbing, no edema Neuro: Cranial nerves II through XII grossly intact, normal affect and speech, no focal motor deficits. Labs/Xrays ORDERING PHYSICIAN: RIGOBEROT COLIN PAC PROCEDURE(s): ABPL - CT AB PEL WO CON-NO ORAL OR IV REASON: Right upper quadrant pain ORDER NUMBER(s): [id number], ACCESSION NUMBER(s): [id number] EXAM DESCRIPTION: CT CT AB PEL WO CON-NO ORAL OR IV CLINICAL HISTORY: Right upper quadrant pain COMPARISON: None TECHNIQUE: CT abdomen and pelvis without IV contrast was performed. Coronal and sagittal MPR images were generated.CTDI/ DLP = 27.88 / 3.92 Dose reduction technique with one or more of the following methods was performed: Automated exposure control, adjustment of the mA and/or kV according to patient size, use of iterative reconstruction technique FINDINGS: Lower chest: Clear lung bases. Liver: Homogenous in attenuation. . Biliary: Moderately distended gallbladder with a few small gallstones near the gallbladder neck. No biliary ductal dilatation. Pancreas: No fat stranding or focal lesion. Spleen: Normal in size.. Adrenal glands: No nodularity. No nodularity Kidneys: 8 mm calculus in the right kidney. No right-sided hydronephrosis. 15 mm calculus in the left renal pelvis with moderate left renal calyceal dilation. There is severe cortical thickening of the left kidney and moderate cortical thickening of the right kidney. There is mild stranding around the left renal pelvis stone. No hydroureteronephrosis. . Bladder: Underdistended, limiting evaluation. Reproductive organs: Normal. Bowel: No bowel wall thickening or dilatation. Colonic diverticulosis without evidence of diverticulitis. Normal appendix.. Peritoneum: No free fluid. No free air. Vessels: Normal caliber abdominal aorta. Moderate atherosclerotic calcifications.. Lymph nodes: No suspicious lymph nodes. Soft tissues: Unremarkable. . Osseous structures: No acute fracture or subluxation. No suspicious osseous lesions. Degenerative changes of the visualized thoracolumbar spine. IMPRESSION: 1. Moderately distended gallbladder with a few small gallstones near the gallbladder neck. Recommend further evaluation with right quadrant ultrasound. 2. A 15 mm calculus in the left renal pelvis with moderate left renal calyceal dilation and severe left renal cortical thinning, likely due to chronic obstruction. 3. Moderate cortical thinning of the right kidney with 8 mm nonobstructing right renal calculus. 4. Moderate atherosclerotic vascular disease. RING PHYSICIAN: RIGOBERTO COLIN PAC PROCEDURE(s): ABDL - ABDOMEN LIMITED REASON: Right upper quadrant/gallbladder evaluation ORDER NUMBER(s): [id number], ACCESSION NUMBER(s): [id number] EXAM DESCRIPTION: US ABDOMEN LIMITED CLINICAL HISTORY: Right upper quadrant/gallbladder evaluation COMPARISON: CT CT AB PEL WO CON-NO ORAL OR IV on DOS: 05/19/25, US RT LOWER DVT on DOS: 09/23/24 TECHNIQUE: Using real-time ultrasonography multiple images of the abdomen were obtained. FINDINGS: The liver measures 16.7 cm. No focal liver masses. The liver is diffiusely increased in echongenicity. The pancreas is obscured by shadowing bowel gas. Stones and sludge in the gallbladder. No gallbladder wall thickening. No pericholecystic fluid. Negative sonographic Vaz sign. The common bile duct measures 6 mm in diameter. There is no free intraperitoneal fluid. The right kidney measures 13.1 cm. The left kidney measures 14.2cm, but is not well visualized. 8mm right renal calculus. IMPRESSION: 1. Cholelithiasis and gallbladder sludge without evidence of acute cholecystitis. 2. Hepatic steatosis. 3. An 8 mm right renal calculus. Labs Test 05/19/25 17:35 05/19/25 16:50 05/19/25 16:00 Range/Units Urine Color Brown H Yellow Urine Clarity Ex.turbid Clear Urine pH 5.5 5.0-9.0 Urine Specific [place] 1.015 1.001-1.035 Urine Protein 1+ H Negative Urine Ketones Negative Negative Urine Blood 3+ H Negative /uL Urine Nitrite Negative Negative Urine Bilirubin Negative Negative Urine Urobilinogen Normal Negative mg/dL Urine Leukocyte Esterase 3+ Negative /uL Urine RBC 195 0 - 4 /hpf Urine WBC Clumps Present None Seen /hpf Urine Microscopic WBC 3666 H 0-5 /HPF Urine Squamous Epithelial Cells Mod <5 /hpf Urine Bacteria Few H None Seen /hpf Urine Mucus Few None Seen Urine Glucose Normal Normal mg/dL Troponin I High Sensitivity 5 </=34 ng/L White Blood Count 7.2 4.4-10.8 10^3/uL Red Blood Count 4.77 4.0-5.20 10^6/uL Hemoglobin 15.2 12.2-16.2 g/dL Hematocrit 43.7 36.0-46.0 % Mean Corpuscular Volume 91.6 80.0-100.0 fL Mean Corpuscular Hemoglobin 31.9 28.0-32.0 pg Mean Corpuscular Hemoglobin Concent 34.9 32.0-36.0 g/dL Red Cell Distribution Width 13.0 11.8-14.3 % Platelet Count 271 140-450 10^3/uL Mean Platelet Volume 7.5 6.9-10.8 fL Neutrophils (%) (Auto) 67.3 37.0-80.0 % Lymphocytes (%) (Auto) 19.5 10.0-50.0 % Monocytes (%) (Auto) 10.0 0.0-12.0 % Eosinophils (%) (Auto) 2.5 0.0-7.0 % Basophils (%) (Auto) 0.7 0.0-2.0 % Neutrophils # (Auto) 4.9 1.6-8.6 10 ^3/uL Lymphocytes # (Auto) 1.4 0.4-5.4 10 ^3/uL Monocytes # (Auto) 0.7 0-1.3 10 ^3/uL Eosinophils # (Auto) 0.2 0-0.8 10 ^3/uL Basophils # (Auto) 0.1 0-0.2 10 ^3/uL Nucleated Red Blood Cells 0.1 % Sodium Level 142 136-145 mmol/L Potassium Level 4.0 3.5-5.1 mmol/L Chloride Level 106 98-107 mmol/L Carbon Dioxide Level 28 20-31 mmol/L Anion Gap 8 5-15 Blood Urea Nitrogen 26 H 9-23 mg/dL Creatinine 1.30 H 0.550-1.02 mg/dL Glomerular Filtration Rate Calc 47 >90 mL/min BUN/Creatinine Ratio 20.0 10.0-20.0 Serum Glucose 94 74-106 mg/dL Lactic Acid Level 1.2 0.4-2.0 mmol/L Calcium Level 9.6 8.7-10.4 mg/dL Total Bilirubin 0.7 0.2-1.0 mg/dL Aspartate Amino Transferase (AST) 17 13-40 U/L Alanine Aminotransferase (ALT) 26 7-40 U/L Alkaline Phosphatase 78 46-116 U/L B-Type Natriuretic Peptide 31.67 0-100 pg/mL Total Protein 6.8 5.7-8.2 g/dL Albumin 4.7 3.2-4.8 g/dL Lipase 43 12-53 U/L SEPSIS Sepsis Screen Date sepsis recognized/suspect: May 19, 2025 Time Sepsis recognized/suspect: 1526 Recent Procedure: No On Antibiotic Therapy: No Respiratory Rate >20: No Heart Rate >90: No Temp<36 C (96.8 F) or >38.3 C: No SBP <90 or MAP <65 mmHG: No New Acute Mental Status Change: No Is the patient on CPAP, BIPAP,: No Physician Orders Nm Hida Scan (05/19/25 22:39) Isosorbide Mononitrate Tablet (Imdur Er (05/20/25 10:00) Atorvastatin (Lipitor) (05/20/25 22:00) Ranolazine (Ranexa Er) (05/20/25 10:00) Sacubitril-Valsartan (Entresto 24-26 Mg (05/20/25 10:00) Spironolactone (Aldactone) (05/20/25 10:00) Furosemide Tablet (Lasix Tablet) (05/20/25 10:00) Ceftriaxone 1gm/50ml D5w (Rocephin) (05/20/25 09:00) Basic Metabolic Panel (05/20/25 04:00) Pantoprazole (Protonix) (05/20/25 10:00) Admit (05/19/25 22:39) Hydrocodone-Acet 5/325mg Tab ([place] 5/32 (05/19/25 22:45) Temazepam (Restoril) (05/19/25 22:45) Ondansetron Hcl (Zofran) (05/19/25 22:45) Complete Blood Count (05/20/25 04:00) Condition: Stable (05/19/25 22:39) Acetaminophen Tablet (Tylenol Tablet) (05/19/25 22:45) Clear Liq Diet (05/20/25 Breakfast) Bedrest With Bathroom Privileg (05/19/25 22:39) Vital Signs Date Time Temp Pulse Resp B/P (MAP) Pulse Ox O2 Delivery O2 Flow Rate FiO2 05/20/25 01:20 97.8 59 18 179/96 (123) 96 97.8 05/20/25 00:18 87 19 167/72 05/19/25 23:46 97.9 50 16 155/73 (100) 94 97.9 Medications Medications Dose Ordered Sig/Vince Route Start Time Stop Time Status Last Admin Dose Admin Ceftriaxone Sodium 50 ml @ 100 mls/hr ONCE ONCE IV 05/19/25 20:30 05/19/25 20:59 DC 05/20/25 00:15 100 MLS/HR Ondansetron HCl 4 mg Q4HP PRN IV 05/19/25 22:45 05/20/25 01:36 4 MG Assessment/Plan Assessment/Plan Assessment Acute abdominal pain Urinary tract infection Acute kidney injury Plan Admit the patient to [facility] to the hospitalist Clear liquid diet HIDA scan pending Rocephin Resume home medications Continue treatment per orders Plan discussed with: Patient My Orders Orders - ALETA SCHULTE Procedure Category Date Status Time Nm Hida Scan NM 05/19/25 Logged 22:39 Isosorbide PHA 05/20/25 In Process Mononitrate Tablet 10:00 Atorvastatin (Lipitor) PHA 05/20/25 In Process 22:00 Ranolazine (Ranexa Er) PHA 05/20/25 In Process 10:00 Sacubitril-Valsartan PHA 05/20/25 In Process (Entresto 24-26 Mg 10:00 Spironolactone PHA 05/20/25 In Process (Aldactone) 10:00 Furosemide Tablet PHA 05/20/25 In Process (Lasix Tablet) 10:00 Ceftriaxone 1gm/50ml PHA 05/20/25 In Process D5w (Rocephin) 09:00 Basic Metabolic Panel LAB 05/20/25 Logged 04:00 Pantoprazole PHA 05/20/25 In Process (Protonix) 10:00 Admit ADMIT 05/19/25 Transmitted 22:39 Hydrocodone-Acet PHA 05/19/25 In Process 5/325mg Tab ([place] 22:45 Temazepam (Restoril) PHA 05/19/25 In Process 22:45 Ondansetron Hcl PHA 05/19/25 In Process (Zofran) 22:45 Complete Blood Count LAB 05/20/25 Logged 04:00 Condition: Stable JACK 05/19/25 In Process 22:39 Acetaminophen Tablet PHA 05/19/25 In Process (Tylenol Tablet) 22:45 Clear Liq Diet DIET 05/20/25 Transmitted Breakfast Bedrest With Bathroom JACK 05/19/25 In Process Privileg 22:39 Date of Service: May 19, 2025 Billing Provider: ALETA SCHULTE Common Visit Codes: [id number] INP/OBS CARE (MOD) ALETA SCHULTE May 20, 2025 05:05
[2025-05-20 07:30] LABS: Hematocrit 42.4 % (36.0-46.0); Hemoglobin 15.0 g/dL (12.2-16.2); Mean Corpuscular Hemoglobin 32.7 pg (28.0-32.0); Mean Corpuscular Volume 92.7 fL (80.0-100.0); Nucleated Red Blood Cells % 0.0 %
[2025-05-20 07:32] LABS: Anion Gap 8 (5-15); Carbon Dioxide 29 mmol/L (20-31); Chloride 104 mmol/L (98-107); Potassium 4.0 mmol/L (3.5-5.1); Sodium 141 mmol/L (136-145)
[2025-05-20 07:33] LABS: Calcium 9.7 mg/dL (8.7-10.4)
[2025-05-20 07:38] LABS: BUN/Creatinine Ratio 20.9 (10.0-20.0)
[2025-05-20 07:39] LABS: Blood Urea Nitrogen 28 mg/dL (9-23); Glucose 108 mg/dL (74-106)
[2025-05-20] MEDS: SODIUM CHLORIDE 0.9% 250 ML IV ONE (08:30)
[2025-05-20] MEDS: TAMSULOSIN HYDROCHLORIDE 0.4 MG CAP PO ONE (08:30)
[2025-05-20] MEDS: cefTRIAXone 1GM/50ML D5W 50 ML IV SCH (09:00)
[2025-05-20] MEDS: SPIRONOLACTONE 25 MG TAB PO SCH (10:00)
[2025-05-20] MEDS: RANOLAZINE ER 500 MG TAB PO SCH (10:00)
[2025-05-20] MEDS: ISOSORBIDE MONONITRATE ER 60 MG TAB PO SCH (10:00)
[2025-05-20] MEDS: FUROSEMIDE 40 MG TAB PO SCH (10:00)
[2025-05-20] MEDS: SACUBITRIL-VALSARTAN 24mg/26mg TAB PO SCH (10:00)
[2025-05-20] MEDS: PANTOPRAZOLE 40 MG/10 ML VIAL INJ IV SCH (10:00)
[2025-05-20 11:15] LABS: Hepatitis B Surface Antigen Negative (Negative); Hepatitis C Antibody Negative (Negative)
--- NOTE | 2025-05-20 11:27 | DVHPNRES ---
Progress Note Date Seen: May 20, 2025 Resident Creating Document: TELLO STUART RESIDENT Medical Necessity Reason Pt with a Central, PICC or Fol: No Subjective Review of Systems Patient is a 59-year-old female with past medical history of HFrEF with EF of 30%, phlebitis, lupus which was diagnosed last year,and recurrent UTI since 1 year who came to the ED with chief complaints of 10/10 pain in epigastric and right upper quadrant which radiates to the back that started yesterday morning and gradually became unbearable. She also stated that the back pain was constant for 1 month. Patient has history of chest pain mostly when she becomes bradycardic. She had multiple recurrent UTIs since 1 year and has used Macrobid multiple times her recent UTI was 1 and half week ago, she states she had a cystoscopy 2 weeks ago. She also complains of shortness of breath which is ongoing since last year. Patient denied any vomiting, diarrhea, constipation. Past Surgical history: , history of varicose veins right leg surgery, history of nephrostomy tube placement Personal history: Patient smoked 1 pack per week but stopped 9 years ago, denies any alcohol use, takes marijuana gummies once every 2 weeks 05/20/2025: Patient seen at bedside. Patient appears alert x3, in moderate distress, she complains of epigastric, right upper quadrant pain still radiating to the back which is 6/10 in intensity, has mild nausea and headache, denies any vomiting, diarrhea, constipation, dizziness, heartburn. Patient has positive signs of UTI in urinalysis and complains of foul-smelling urine, bloody and cloudy urine, but denies any burning pain, dysuria. Patient went to the HIDA scan today which showed Unremarkable hepatobiliary study without evidence of acute cholecystitis. Constitutional: Denies weight loss, fever and chills. HEENT: Denies changes in vision and hearing. Respiratory: Denies shortness of breath and cough Cardiovascular: Denies chest discomfort or palpitations GI: Right upper quadrant and epigastric pain. : Foul-smelling urine, bloody and cloudy urine Musculoskeletal: Denies myalgias and joint pain Skin: Denies rash and pruritus. Neurological: Denies dizziness, headache, vision or hearing problems Objective vital signs Vital Sign Date Time Temp Pulse Resp B/P (MAP) Pulse Ox O2 Delivery O2 Flow Rate FiO2 05/20/25 08:42 97.7 61 18 121/56 (77) 97 97.7 05/20/25 08:00 Room Air* 0 21 Total Intake and Output 05/19/25 05/19/25 05/20/25 15:00 23:00 07:00 Intake Total 840 ml Balance 840 ml medications Current Medications Medications Dose Ordered Sig/Vince Route Start Time Stop Time Status Last Admin Dose Admin Isosorbide Mononitrate 60 mg DAILY PO 05/20/25 10:00 Atorvastatin Calcium 40 mg HS PO 05/20/25 22:00 Ranolazine 500 mg BID PO 05/20/25 10:00 Sacubitril/ Valsartan 1 tab BID PO 05/20/25 10:00 Spironolactone 25 mg DAILY PO 05/20/25 10:00 Furosemide 40 mg DAILY PO 05/20/25 10:00 Hold Ceftriaxone Sodium 50 ml @ 100 mls/hr DAILY@09 IV 05/20/25 09:00 Pantoprazole Sodium 40 mg DAILY IV 05/20/25 10:00 Acetaminophen/ Hydrocodone Bitart 1 tab Q4HP PRN PO 05/19/25 22:45 Temazepam 15 mg QHSP PRN PO 05/19/25 22:45 Ondansetron HCl 4 mg Q4HP PRN IV 05/19/25 22:45 05/20/25 01:36 4 MG Acetaminophen 650 mg Q6HP PRN PO 05/19/25 22:45 Tamsulosin HCl 0.4 mg QPM PO 05/21/25 18:00 Examination General: Patient alert and oriented in person, place and time. Patient following commands. HEENT: Normocephalic, atraumatic, moist mucous membranes Respiratory/pulmonary: Clear lungs bilaterally, vesicular murmurs present in almost all lung camarena, no associated crackles or wheezes. Cardiovascular: Normal heart sounds S1 and S2 with no associated murmurs Abdomen: Epigastric and right upper quadrant tenderness, Vaz sign positive, radiating to the back. obese abdomen Extremities: +1 bilateral pitting edema Peripheral Pulses: 3+ Radial (R). 3+ Radial (L). 3+ Dorsalis pedis (R). 3+ Dorsalis pedis(L) Skin: No rashes or pruritus, there is no sacral edema present at this time. Neurological: Intact cranial nerves with no focal neurologic deficits laboratory and microbiology Laboratory Tests 05/20/25 06:09 Test 05/20/25 06:09 Range/Units Serum Glucose 108 H 74-106 mg/dL Problem List/Assessment/Plan Problem List/Assessment/Plan # Symptomatic cholelithiasis, rule out cholecystitis # Intractable abdominal pain - CT abdomen shows Moderately distended gallbladder with a few small gallstones near the gallbladder neck. Recommend further evaluation with right quadrant ultrasound. - HIDA scan shows Unremarkable hepatobiliary study without evidence of acute cholecystitis. - liver ultrasound shows: Cholelithiasis and gallbladder sludge without evidence of acute cholecystitis. Hepatic steatosis. - surgery consulted, pending # Acute complicated UTI - urinalysis shows signs of UTI - IV ceftriaxone given # 8 mm nonobstructing right renal calculus. # 15 mm calculus in the left renal pelvis -CT abdomen - A 15 mm calculus in the left renal pelvis with moderate left renal calyceal dilation and severe left renal cortical thinning, likely due to chronic obstruction. Moderate cortical thinning of the right kidney with 8 mm nonobstructing right renal calculus. - consulted Urology, pending - IV fluids, tamsulosin given - # obesity- BMI 42.9 Goals of care discussed with the patient for 23 minutes: Full code Case discussed with Dr. Jackson Plan discussed with: Patient My Orders My Orders Orders - TELLO STUART Procedure Category Date Status Time * Urology Consult CONS 05/20/25 Transmitted 08:18 Urine LAB 05/20/25 Logged Protein/Creatinine Urine Sodium LAB 05/20/25 Logged 08:22 Tamsulosin PHA 05/21/25 In Process Hydrochloride (Flomax) 18:00 TELLO STUART RESIDENT May 20, 2025 11:27
[2025-05-20 12:10] LABS: Triglycerides 93 mg/dL (< 150)
[2025-05-20 12:12] LABS: Cholesterol 179 mg/dL (< 200)
[2025-05-20 12:14] LABS: HDL Cholesterol 68 mg/dL (40-59)
--- NOTE | 2025-05-20 15:04 | DVH ---
Procedure: NM NM HIDA SCAN Exam Date: 05/20/2025 01:23 PM Clinical History: r/o cholecystitis Comparison Study: CARDIOLITE MULTIPLE on DOS: 09/18/21 Nuclear Medicine Hepatobiliary Scan. Technique: Following the intravenous administration of 6.3 mCi of technetium 99m labeled Choletec multiple plana r abdominal planar images were obtained in anterior projection in 5 minute intervals for45 minutes . Right lateral images were obtained at 45 minutes after injection. Findings: The liver appears grossly normal in size. There is no abnormal persistence of the cardiac or blood po ol activity. There is prompt visualization of the gallbladder and excretion of activity into the smal l bowel. Impression: Unremarkable hepatobiliary study without evidence of acute cholecystitis.
[2025-05-20] MEDS: HYDROcodone-ACET 5/325MG TAB PO PRN (15:54)
--- NOTE | 2025-05-20 18:22 | DVHINCON2 ---
Date of service: May 20, 2025 Referring Physician Hospitalist Reason for Consultation 8 mm right renal stone 15 mm left renal stone with chronic kidney disease History of Present Illness 59-year-old female presents for evaluation of abdominal pain. Patient endorses a one day history of right upper quadrant abdominal pain that radiates to her back. She reports nausea without emesis. No fever or chills. No cardiac or respiratory complaints. Past Medical History Arthritis, dyslipidemia, hypertension Past Surgical History Family History: FH: bladder cancer G8 MOTHER FH: breast cancer G8 MOTHER Allergies: Coded Allergies: Penicillins (Unverified Allergy, Unknown, 09/13/16) Home Meds Active Scripts Spironolactone (Aldactone) 25 Mg Tab, 12.5 MG PO DAILY for 30 Days, #15 TAB Prov:ALONSO ILRA MD 09/30/24 Sacubitril-Valsartan (Entresto 24-26 mg) 1 Tab Tab, 0.5 TAB PO BID for 30 Days, #30 TAB Prov:ALOSNO LIRA MD 09/30/24 Nitrofurantoin Monohydrate Mac (Macrobid) 100 Mg Cap, 100 MG PO BID for 4 Days, #8 CAP Prov:ALONSO LIRA MD 09/30/24 Metoprolol Succinate (Toprol Xl) 50 Mg Tab, 25 MG PO BID for 30 Days, #30 TAB Prov:ALONSO LIRA MD 09/30/24 Isosorbide Mononitrate (Isosorbide Mononitrate ER) 60 Mg Tab, 30 MG PO DAILY for 30 Days, #15 TAB Prov:ALONSO LIRA MD 09/30/24 Furosemide (Furosemide) 40 Mg Tab, 40 MG PO DAILY for 30 Days, #30 TAB Prov:ALONSO LIRA MD 09/30/24 Empagliflozin (Jardiance) 10 Mg Tab, 10 MG PO DAILY for 30 Days, #30 TAB Prov:ALONSO LIRA MD 09/30/24 Amiodarone HCl (Amiodarone HCl) 200 Mg Tab, 200 MG PO Q12HR for 30 Days, #60 TAB Prov:ALONSO LIRA MD 09/30/24 Atorvastatin Calcium (ATORVASTATIN CALCIUM) 20 Mg Tab, 20 MG PO HS for 30 Days, #30 TAB Prov:KEERTHI ALMANZAR MD 12/02/21 Reported Medications Omeprazole (Omeprazole Dr) 20 Mg Cap, 1 CAP PO DAILY for 90 Days, #90 09/25/24 Semaglutide (Ozempic) 2 Mg/3 Ml Inj, 0.5 MG SC QWEEKLY for 28 Days, #3 09/25/24 Hydroxychloroquine Sulfate (Hydroxychloroquine Sulfat) 200 Mg Tab, 1 TAB PO DAILY 09/23/24 Ranolazine (Ranolazine ER) 500 Mg Tab, 1 TAB PO BID 09/23/24 Spironolactone (Spironolactone) 25 Mg Tab, 25 MG PO DAILY, TAB 07/22/22 Discontinued Reported Medications Aspirin (Aspirin Low Dose) 81 Mg Chw, 81 MG PO DAILY, TAB.CHEW 07/22/22 Current Medications Current Medications Medications (Trade) Dose Ordered Sig/Vince Route PRN Reason Start Time Stop Time Status Last Admin Isosorbide Mononitrate (Imdur Er Tablet) 60 mg DAILY PO 05/20/25 10:00 Atorvastatin Calcium (Lipitor) 40 mg HS PO 05/20/25 22:00 Ranolazine (Ranexa ER) 500 mg BID PO 05/20/25 10:00 Sacubitril/ Valsartan (Entresto 24-26 Mg tab) 1 tab BID PO 05/20/25 10:00 Spironolactone (Aldactone) 25 mg DAILY PO 05/20/25 10:00 Furosemide (Lasix Tablet) 40 mg DAILY PO 05/20/25 10:00 Hold Ceftriaxone Sodium 50 ml @ 100 mls/hr DAILY@09 IV 05/20/25 09:00 Pantoprazole Sodium (Protonix) 40 mg DAILY IV 05/20/25 10:00 Acetaminophen/ Hydrocodone Bitart ([place] 5/325MG Tab) 1 tab Q4HP PRN PO MODERATE PAIN (4-6 PAIN SCALE) 05/19/25 22:45 05/20/25 15:54 Temazepam (Restoril) 15 mg QHSP PRN PO FOR INSOMNIA 05/19/25 22:45 Ondansetron HCl (Zofran) 4 mg Q4HP PRN IV NAUSEA / VOMITING 05/19/25 22:45 05/20/25 01:36 Acetaminophen (Tylenol Tablet) 650 mg Q6HP PRN PO PAIN SCALE 1-3 OR TEMP>100.4 05/19/25 22:45 Tamsulosin HCl (Flomax) 0.4 mg QPM PO 05/21/25 18:00 Review of Systems Review of systems are currently negative otherwise addressed in HPI. Allergies: Coded Allergies: Penicillins (Unverified Allergy, Unknown, 09/13/16) Medications Current Medications Medications Dose Ordered Sig/Vince Route Start Time Stop Time Status Last Admin Dose Admin Isosorbide Mononitrate 60 mg DAILY PO 05/20/25 10:00 Atorvastatin Calcium 40 mg HS PO 05/20/25 22:00 Ranolazine 500 mg BID PO 05/20/25 10:00 Sacubitril/ Valsartan 1 tab BID PO 05/20/25 10:00 Spironolactone 25 mg DAILY PO 05/20/25 10:00 Furosemide 40 mg DAILY PO 05/20/25 10:00 Ceftriaxone Sodium 50 ml @ 100 mls/hr DAILY@09 IV 05/20/25 09:00 Pantoprazole Sodium 40 mg DAILY IV 05/20/25 10:00 Acetaminophen/ Hydrocodone Bitart 1 tab Q4HP PRN PO 05/19/25 22:45 Temazepam 15 mg QHSP PRN PO 05/19/25 22:45 Ondansetron HCl 4 mg Q4HP PRN IV 05/19/25 22:45 05/20/25 01:36 4 MG Acetaminophen 650 mg Q6HP PRN PO 05/19/25 22:45 Vital Signs Vital Signs Date Time Temp Pulse Resp B/P (MAP) Pulse Ox O2 Delivery O2 Flow Rate FiO2 05/20/25 17:00 98.3 66 18 131/50 (77) 98 98.3 05/20/25 08:00 Room Air* 0 21 Physical Exam Date Time Temp Pulse Resp B/P (MAP) Pulse Ox O2 Delivery O2 Flow Rate FiO2 05/20/25 01:20 97.8 59 18 179/96 (123) 96 97.8 Exam Gen: 59-year-old female in mild Skin: Warm, dry, normal color and texture, no rash. HEENT: Normocephalic atraumatic, mucous membranes moist and pink. Neck: Cervical and supraclavicular nodes normal without enlargement, trachea is midline, thyroid gland is normal without masses. Pulmonary: Clear to auscultation and percussion bilaterally. Cardiac: Regular rate and rhythm. No murmur Abdomen: Soft, nontender, nondistended, bowel sounds present all 4 quadrants, no guarding, no rigidity, no organomegaly. Extremities: No cyanosis, clubbing, no edema Neuro: Cranial nerves II through XII grossly intact, normal affect and speech, no focal motor deficits. Labs/Diagnostic Data Labs Test 05/20/25 08:22 05/20/25 06:09 05/20/25 06:06 05/20/25 00:00 Range/Units White Blood Count 7.3 4.4-10.8 10^3/uL Red Blood Count 4.58 4.0-5.20 10^6/uL Hemoglobin 15.0 12.2-16.2 g/dL Hematocrit 42.4 36.0-46.0 % Mean Corpuscular Volume 92.7 80.0-100.0 fL Mean Corpuscular Hemoglobin 32.7 H 28.0-32.0 pg Mean Corpuscular Hemoglobin Concent 35.3 32.0-36.0 g/dL Red Cell Distribution Width 13.3 11.8-14.3 % Platelet Count 227 140-450 10^3/uL Mean Platelet Volume 7.8 6.9-10.8 fL Neutrophils (%) (Auto) 74.9 37.0-80.0 % Lymphocytes (%) (Auto) 14.9 10.0-50.0 % Monocytes (%) (Auto) 8.6 0.0-12.0 % Eosinophils (%) (Auto) 1.1 0.0-7.0 % Basophils (%) (Auto) 0.5 0.0-2.0 % Neutrophils # (Auto) 5.5 1.6-8.6 10 ^3/uL Lymphocytes # (Auto) 1.1 0.4-5.4 10 ^3/uL Monocytes # (Auto) 0.6 0-1.3 10 ^3/uL Eosinophils # (Auto) 0.1 0-0.8 10 ^3/uL Basophils # (Auto) 0 0-0.2 10 ^3/uL Nucleated Red Blood Cells 0.0 % Sodium Level 141 136-145 mmol/L Potassium Level 4.0 3.5-5.1 mmol/L Chloride Level 104 98-107 mmol/L Carbon Dioxide Level 29 20-31 mmol/L Anion Gap 8 5-15 Blood Urea Nitrogen 28 H 9-23 mg/dL Creatinine 1.34 H 0.550-1.02 mg/dL Glomerular Filtration Rate Calc 45 >90 mL/min BUN/Creatinine Ratio 20.9 H 10.0-20.0 Serum Glucose 108 H 74-106 mg/dL Calcium Level 9.7 8.7-10.4 mg/dL Hepatitis B Surface Antigen Negative Negative Hepatitis C Antibody Negative Negative Triglycerides Level 93 < 150 mg/dL Cholesterol Level 179 < 200 mg/dL LDL Cholesterol 100 H < 100 mg/dL HDL Cholesterol 68 H 40-59 mg/dL Test 05/19/25 17:35 05/19/25 16:50 05/19/25 16:00 Range/Units Urine Color Brown H Yellow Urine Clarity Ex.turbid Clear Urine pH 5.5 5.0-9.0 Urine Specific [place] 1.015 1.001-1.035 Urine Protein 1+ H Negative Urine Ketones Negative Negative Urine Blood 3+ H Negative /uL Urine Nitrite Negative Negative Urine Bilirubin Negative Negative Urine Urobilinogen Normal Negative mg/dL Urine Leukocyte Esterase 3+ Negative /uL Urine RBC 195 0 - 4 /hpf Urine WBC Clumps Present None Seen /hpf Urine Microscopic WBC 3666 H 0-5 /HPF Urine Squamous Epithelial Cells Mod <5 /hpf Urine Bacteria Few H None Seen /hpf Urine Mucus Few None Seen Urine Glucose Normal Normal mg/dL Troponin I High Sensitivity 5 </=34 ng/L Lactic Acid Level 1.2 0.4-2.0 mmol/L Total Bilirubin 0.7 0.2-1.0 mg/dL Aspartate Amino Transferase (AST) 17 13-40 U/L Alanine Aminotransferase (ALT) 26 7-40 U/L Alkaline Phosphatase 78 46-116 U/L B-Type Natriuretic Peptide 31.67 0-100 pg/mL Total Protein 6.8 5.7-8.2 g/dL Albumin 4.7 3.2-4.8 g/dL Lipase 43 12-53 U/L Microbiology Date/Time Source Procedure Growth Status 05/19/25 17:35 Voided Urine Urine Culture - Preliminary Resulted EXAM DESCRIPTION: CT CT AB PEL WO CON-NO ORAL OR IV CLINICAL HISTORY: Right upper quadrant pain COMPARISON: None TECHNIQUE: CT abdomen and pelvis without IV contrast was performed. Coronal and sagittal MPR images were generated.CTDI/ DLP = 27.88 / 3.92 Dose reduction technique with one or more of the following methods was performed: Automated exposure control, adjustment of the mA and/or kV according to patient size, use of iterative reconstruction technique FINDINGS: Lower chest: Clear lung bases. Liver: Homogenous in attenuation. . Biliary: Moderately distended gallbladder with a few small gallstones near the gallbladder neck. No biliary ductal dilatation. Pancreas: No fat stranding or focal lesion. Spleen: Normal in size.. Adrenal glands: No nodularity. No nodularity Kidneys: 8 mm calculus in the right kidney. No right-sided hydronephrosis. 15 mm calculus in the left renal pelvis with moderate left renal calyceal dilation. There is severe cortical thickening of the left kidney and moderate cortical thickening of the right kidney. There is mild stranding around the left renal pelvis stone. No hydroureteronephrosis. . Bladder: Underdistended, limiting evaluation. Reproductive organs: Normal. Bowel: No bowel wall thickening or dilatation. Colonic diverticulosis without evidence of diverticulitis. Normal appendix.. Peritoneum: No free fluid. No free air. Vessels: Normal caliber abdominal aorta. Moderate atherosclerotic calcifications.. Lymph nodes: No suspicious lymph nodes. Soft tissues: Unremarkable. . Osseous structures: No acute fracture or subluxation. No suspicious osseous lesions. Degenerative changes of the visualized thoracolumbar spine. IMPRESSION: 1. Moderately distended gallbladder with a few small gallstones near the gallbladder neck. Recommend further evaluation with right quadrant ultrasound. 2. A 15 mm calculus in the left renal pelvis with moderate left renal calyceal dilation and severe left renal cortical thinning, likely due to chronic obstruction. 3. Moderate cortical thinning of the right kidney with 8 mm nonobstructing right renal calculus. 4. Moderate atherosclerotic vascular disease. RING PHYSICIAN: RIGOBERTO COLIN PAC PROCEDURE(s): ABDL - ABDOMEN LIMITED REASON: Right upper quadrant/gallbladder evaluation ORDER NUMBER(s): [id number], ACCESSION NUMBER(s): [id number] EXAM DESCRIPTION: US ABDOMEN LIMITED CLINICAL HISTORY: Right upper quadrant/gallbladder evaluation COMPARISON: CT CT AB PEL WO CON-NO ORAL OR IV on DOS: 05/19/25, US RT LOWER DVT on DOS: 09/23/24 TECHNIQUE: Using real-time ultrasonography multiple images of the abdomen were obtained. FINDINGS: The liver measures 16.7 cm. No focal liver masses. The liver is diffiusely increased in echongenicity. The pancreas is obscured by shadowing bowel gas. Stones and sludge in the gallbladder. No gallbladder wall thickening. No pericholecystic fluid. Negative sonographic Vaz sign. The common bile duct measures 6 mm in diameter. There is no free intraperitoneal fluid. The right kidney measures 13.1 cm. The left kidney measures 14.2cm, but is not well visualized. 8mm right renal calculus. IMPRESSION: 1. Cholelithiasis and gallbladder sludge without evidence of acute cholecystitis. 2. Hepatic steatosis. 3. An 8 mm right renal calculus. Assessment 8 mm nonobstructing right renal stone 15 mm left renal pelvic stone with chronic atrophy of left kidney Plan/Recommendation Mag 3 Renal Scan with split renal function and lasix washout Outpatient right ESWL TBA Plan discussed with: Patient, Other ELOISE SOLITARIO MD May 20, 2025 18:22
[2025-05-20] MEDS: ATORVASTATIN 20 MG TAB PO SCH (21:27)
[2025-05-21 01:00] VITALS: BP 122/56; PULSE 67; RESP 18; TEMP 98.3; O2SAT 97
[2025-05-21 04:40] VITALS: BP 118/50; PULSE 56; RESP 17; TEMP 98.3; O2SAT 96
[2025-05-21 05:32] LABS: Hematocrit 40.9 % (36.0-46.0); Hemoglobin 14.3 g/dL (12.2-16.2); Mean Corpuscular Hemoglobin 32.5 pg (28.0-32.0); Mean Corpuscular Volume 92.7 fL (80.0-100.0); Nucleated Red Blood Cells % 0.1 %
[2025-05-21 05:38] LABS: Potassium 3.9 mmol/L (3.5-5.1); Sodium 142 mmol/L (136-145)
[2025-05-21 05:39] LABS: Anion Gap 6 (5-15); Calcium 9.4 mg/dL (8.7-10.4); Carbon Dioxide 28 mmol/L (20-31)
[2025-05-21 05:40] LABS: INR 0.98 (0.9-1.15); Partial Thromboplastin Time 30.6 SEC (24.5-34.5); Prothrombin Time 10.4 sec (9.3-11.8)
[2025-05-21 05:43] LABS: Chloride 108 mmol/L (98-107)
[2025-05-21 05:44] LABS: Blood Urea Nitrogen 22 mg/dL (9-23); Glucose 85 mg/dL (74-106)
[2025-05-21 05:53] LABS: BUN/Creatinine Ratio 17.9 (10.0-20.0)
--- NOTE | 2025-05-21 06:36 | ECG ---
[facility] Test Date: 2025-05-19 Test Time: 15:35:15 Pat Name: KWAME JACOBS Department: ER Room: [facility]24[facility] Gender: F Medical Translator: PRASANNA : 1965 Requested By: RIGOBERTO COLIN Order Number: [id number] Reading MD: Measurements Intervals [place] Rate: 55 P: 0 TX: 0 QRS: 51 QRSD: 162 T: 65 QT: 499 QTc: 478 Interpretive Statements Junctional rhythm Right bundle branch block Inferior infarct, old Please click the below link to view image of tracing.
[2025-05-21 08:00] VITALS: PULSE 82; RESP 18; O2SAT 96
[2025-05-21 09:00] VITALS: BP 112/58; PULSE 53; RESP 18; TEMP 97.4; O2SAT 97
--- NOTE | 2025-05-21 09:19 | DVHPN2 ---
Progress Note - Dictate Date Seen: May 21, 2025 Medical Necessity Reason Pt with a Central, PICC or Fol: No Subjective feeling well vital signs Vital Sign Date Time Temp Pulse Resp B/P (MAP) Pulse Ox O2 Delivery O2 Flow Rate FiO2 05/21/25 08:00 82 18 96 Room Air* 0 21 05/21/25 04:40 98.3 118/50 (72) 98.3 Total Intake and Output 05/20/25 05/20/25 05/21/25 15:00 23:00 07:00 Intake Total 480 ml 800 ml 400 ml Balance 480 ml 800 ml 400 ml medications Current Medications Medications Dose Ordered Sig/Vince Route Start Time Stop Time Status Last Admin Dose Admin Isosorbide Mononitrate 60 mg DAILY PO 05/20/25 10:00 Atorvastatin Calcium 40 mg HS PO 05/20/25 22:00 05/20/25 21:27 40 MG Ranolazine 500 mg BID PO 05/20/25 10:00 05/20/25 21:27 500 MG Sacubitril/ Valsartan 1 tab BID PO 05/20/25 10:00 05/20/25 21:27 1 TAB Spironolactone 25 mg DAILY PO 05/20/25 10:00 Furosemide 40 mg DAILY PO 05/20/25 10:00 Hold Ceftriaxone Sodium 50 ml @ 100 mls/hr DAILY@09 IV 05/20/25 09:00 Pantoprazole Sodium 40 mg DAILY IV 05/20/25 10:00 Acetaminophen/ Hydrocodone Bitart 1 tab Q4HP PRN PO 05/19/25 22:45 05/20/25 21:31 1 TAB Temazepam 15 mg QHSP PRN PO 05/19/25 22:45 Ondansetron HCl 4 mg Q4HP PRN IV 05/19/25 22:45 05/20/25 01:36 4 MG Acetaminophen 650 mg Q6HP PRN PO 05/19/25 22:45 Tamsulosin HCl 0.4 mg QPM PO 05/21/25 18:00 objective resting comfortably at the bedside laboratory and microbiology Laboratory Tests 05/21/25 05:08 Test 05/21/25 05:08 Range/Units Serum Glucose 85 74-106 mg/dL Assessment/Plan 59 yo female with history of kidney stones and recurrent UTIs. Cystoscopy was done as outpt and was normal. She was put on suppressive therapy 04/10/25. CT done 04/13/25 shows a left renal stone 2 cm with mild hydro and right renal stone non obstructing 1 cm. there is moderate bilateral renal atrophy. She presented to the ER for complaints of right upper quadrant pain. A CT was done 05/19/25 showin. Moderately distended gallbladder with a few small gallstones near the gallbladder neck. Recommend further evaluation with right quadrant ultrasound. 2. A 15 mm calculus in the left renal pelvis with moderate left renal calyceal dilation and severe left renal cortical thinning, likely due to chronic obstruction. 3. Moderate cortical thinning of the right kidney with 8 mm nonobstructing right renal calculus. 4. Moderate atherosclerotic vascular disease. Urine culture is contaminated. We will obtain a renal scan to r/o obstruction and determine differential function. Given pt is comfortable and renal function in preserved there is no urgent need for nephrostomy placement. Ultimately will need right ESWL as outpt. Left stone management TBD after renal scan has been done. If function greater than 20% intervention to be arranged on outpt basis as well. POC d/w pt and . all questions were answered. Patient did void and PVR was 0 mls Problems(with codes): (1) Hydronephrosis with obstructing calculus (2) Renal stone (3) Renal atrophy, bilateral (4) UTI (urinary tract infection) Prognosis fair Plan discussed with: Patient, Other Total Time (mins): PATRICIA URRUTIA NP May 21, 2025 09:19
[2025-05-21 13:00] VITALS: BP 120/50; PULSE 59; RESP 18; TEMP 98.6; O2SAT 95
--- NOTE | 2025-05-21 16:54 | DVHPNRES ---
Progress Note Date Seen: May 21, 2025 Resident Creating Document: TELLO STUART RESIDENT Medical Necessity Reason Pt with a Central, PICC or Fol: No Subjective Review of Systems Patient is a 59-year-old female with past medical history of HFrEF with EF of 30%, phlebitis, lupus which was diagnosed last year,and recurrent UTI since 1 year who came to the ED with chief complaints of 10/10 pain in epigastric and right upper quadrant which radiates to the back that started yesterday morning and gradually became unbearable. She also stated that the back pain was constant for 1 month. Patient has history of chest pain mostly when she becomes bradycardic. She had multiple recurrent UTIs since 1 year and has used Macrobid multiple times her recent UTI was 1 and half week ago, she states she had a cystoscopy 2 weeks ago. She also complains of shortness of breath which is ongoing since last year. Patient denied any vomiting, diarrhea, constipation. Past Surgical history: , history of varicose veins right leg surgery, history of nephrostomy tube placement Personal history: Patient smoked 1 pack per week but stopped 9 years ago, denies any alcohol use, takes marijuana gummies once every 2 weeks 05/20/2025: Patient seen at bedside. Patient appears alert x3, in moderate distress, she complains of epigastric, right upper quadrant pain still radiating to the back which is 6/10 in intensity, has mild nausea and headache, denies any vomiting, diarrhea, constipation, dizziness, heartburn. Patient has positive signs of UTI in urinalysis and complains of foul-smelling urine, bloody and cloudy urine, but denies any burning pain, dysuria. Patient went to the HIDA scan today which showed Unremarkable hepatobiliary study without evidence of acute cholecystitis. 05/21/2025 Patient seen at bedside. She appears alert x3, in mild distress she states that her pain has decreased since yesterday but is still a 4/10 intensity and which does radiate to the back, and increases after eating any meal. she also complains of nausea but denies any vomiting, diarrhea, constipation, headaches, dizziness, SOB, heartburn, dysuria. she still complains of foul-smelling urine, and a NM scan was ordered and is pending. surgery was consulted. Urology Was consulted and they will obtain a renal scan to r/o obstruction and determine differential function. Given pt is comfortable and renal function in preserved there is no urgent need for nephrostomy placement. Ultimately will need right ESWL as outpt. Left stone management TBD after renal scan has been done. If function greater than 20% intervention to be arranged on outpt basis as well. Objective vital signs Vital Sign Date Time Temp Pulse Resp B/P (MAP) Pulse Ox O2 Delivery O2 Flow Rate FiO2 05/21/25 13:00 98.6 59 18 120/50 (73) 95 98.6 05/21/25 08:00 Room Air* 0 21 Total Intake and Output 05/20/25 05/20/25 05/21/25 15:00 23:00 07:00 Intake Total 480 ml 800 ml 400 ml Balance 480 ml 800 ml 400 ml medications Current Medications Medications Dose Ordered Sig/Vince Route Start Time Stop Time Status Last Admin Dose Admin Isosorbide Mononitrate 60 mg DAILY PO 05/20/25 10:00 05/21/25 09:36 60 MG Atorvastatin Calcium 40 mg HS PO 05/20/25 22:00 05/20/25 21:27 40 MG Ranolazine 500 mg BID PO 05/20/25 10:00 05/21/25 09:36 500 MG Sacubitril/ Valsartan 1 tab BID PO 05/20/25 10:00 05/21/25 09:37 1 TAB Spironolactone 25 mg DAILY PO 05/20/25 10:00 Hold 05/21/25 09:37 25 MG Furosemide 40 mg DAILY PO 05/20/25 10:00 Hold Ceftriaxone Sodium 50 ml @ 100 mls/hr DAILY@09 IV 05/20/25 09:00 05/21/25 09:36 100 MLS/HR Pantoprazole Sodium 40 mg DAILY IV 05/20/25 10:00 05/21/25 09:36 40 MG Acetaminophen/ Hydrocodone Bitart 1 tab Q4HP PRN PO 05/19/25 22:45 05/20/25 21:31 1 TAB Temazepam 15 mg QHSP PRN PO 05/19/25 22:45 Ondansetron HCl 4 mg Q4HP PRN IV 05/19/25 22:45 05/20/25 01:36 4 MG Acetaminophen 650 mg Q6HP PRN PO 05/19/25 22:45 Tamsulosin HCl 0.4 mg QPM PO 05/21/25 18:00 Examination General: Patient alert and oriented in person, place and time. Patient following commands. HEENT: Normocephalic, atraumatic, moist mucous membranes Respiratory/pulmonary: Clear lungs bilaterally, vesicular murmurs present in almost all lung camarena, no associated crackles or wheezes. Cardiovascular: Normal heart sounds S1 and S2 with no associated murmurs Abdomen: Epigastric and right upper quadrant tenderness, Vaz sign positive, radiating to the back. obese abdomen Extremities: +1 bilateral pitting edema Peripheral Pulses: 3+ Radial (R). 3+ Radial (L). 3+ Dorsalis pedis (R). 3+ Dorsalis pedis(L) Skin: No rashes or pruritus, there is no sacral edema present at this time. Neurological: Intact cranial nerves with no focal neurologic deficits laboratory and microbiology Laboratory Tests 05/21/25 05:08 Test 05/21/25 05:08 Range/Units Serum Glucose 85 74-106 mg/dL Microbiology Date/Time Source Procedure Growth Status 05/19/25 17:35 Voided Urine Urine Culture - Preliminary Resulted Problem List/Assessment/Plan Problem List/Assessment/Plan # Symptomatic cholelithiasis, rule out cholecystitis # Intractable abdominal pain # Intractable nausea - CT abdomen shows Moderately distended gallbladder with a few small gallstones near the gallbladder neck. Recommend further evaluation with right quadrant ultrasound. - HIDA scan shows Unremarkable hepatobiliary study without evidence of acute cholecystitis. - liver ultrasound shows: Cholelithiasis and gallbladder sludge without evidence of acute cholecystitis. Hepatic steatosis. - surgery consulted, pending # Chronic HFrEF with no exaerbation - NYNA class 2 # hyperlipidemia - LVEF- 30% - furosemide 40 mg IV - Entresto p.o. - Lipitor 40 mg - follow-up with cardiology outpatient # Acute complicated UTI - urinalysis shows signs of UTI - IV ceftriaxone given # 8 mm nonobstructing right renal calculus. # 15 mm calculus in the left renal pelvis -CT abdomen - A 15 mm calculus in the left renal pelvis with moderate left renal calyceal dilation and severe left renal cortical thinning, likely due to chronic obstruction. Moderate cortical thinning of the right kidney with 8 mm nonobstructing right renal calculus. - consulted Urology, and stated they will obtain a renal scan to r/o obstruction and determine differential function. Given pt is comfortable and renal function in preserved there is no urgent need for nephrostomy placement. Ultimately will need right ESWL as outpt. Left stone management TBD after renal scan has been done. If function greater than 20% intervention to be arranged on outpt basis as well. - IV fluids, tamsulosin given # obesity- BMI 42.9 PPI prophylaxis: Protonix 40 mg DVT prophylaxis: Ambulatory Goals of care discussed with the patient for 23 minutes: Full code Case discussed with Dr. Jackson Plan discussed with: Patient TELLO STUART RESIDENT May 21, 2025 16:54
[2025-05-21 17:00] VITALS: BP 111/48; PULSE 58; RESP 18; TEMP 97.6; O2SAT 95
[2025-05-21] MEDS: TAMSULOSIN HYDROCHLORIDE 0.4 MG CAP PO SCH (17:09)
[2025-05-22 05:00] VITALS: BP 104/61; PULSE 64; RESP 18; TEMP 97.8; O2SAT 97
[2025-05-22 06:15] LABS: Hematocrit 40.0 % (36.0-46.0); Hemoglobin 14.2 g/dL (12.2-16.2); Mean Corpuscular Hemoglobin 32.5 pg (28.0-32.0); Mean Corpuscular Volume 92.0 fL (80.0-100.0); Nucleated Red Blood Cells % 0.1 %
[2025-05-22 06:25] LABS: Anion Gap 6 (5-15); Calcium 9.2 mg/dL (8.7-10.4); Carbon Dioxide 27 mmol/L (20-31); Potassium 4.1 mmol/L (3.5-5.1); Sodium 141 mmol/L (136-145)
[2025-05-22 06:27] LABS: Chloride 108 mmol/L (98-107)
[2025-05-22 06:30] LABS: Glucose 85 mg/dL (74-106)
[2025-05-22 06:31] LABS: BUN/Creatinine Ratio 14.8 (10.0-20.0); Blood Urea Nitrogen 17 mg/dL (9-23)
[2025-05-22] MEDS ORDERED: FUROSEMIDE 40 MG/4 ML VIAL IV ONE (11:00)
--- NOTE | 2025-05-22 20:01 | DVHDSRES ---
Discharge Summary Date of Admission Resident Creating Document: TELLO STUART May 19, 2025 at 22:39 Date of Discharge: May 22, 2025 Admitting Diagnosis # Symptomatic cholelithiasis, ruled out cholecystitis Labs/Diagnostic Data: Laboratory Results Test 05/22/25 05:24 05/21/25 05:08 05/20/25 06:09 05/20/25 06:06 White Blood Count 4.6 10^3/uL (4.4-10.8) Red Blood Count 4.35 10^6/uL (4.0-5.20) Hemoglobin 14.2 g/dL (12.2-16.2) Hematocrit 40.0 % (36.0-46.0) Mean Corpuscular Volume 92.0 fL (80.0-100.0) Mean Corpuscular Hemoglobin 32.5 pg (28.0-32.0) Mean Corpuscular Hemoglobin Concent 35.4 g/dL (32.0-36.0) Red Cell Distribution Width 13.1 % (11.8-14.3) Platelet Count 216 10^3/uL (140-450) Mean Platelet Volume 7.6 fL (6.9-10.8) Neutrophils (%) (Auto) 55.3 % (37.0-80.0) Lymphocytes (%) (Auto) 30.7 % (10.0-50.0) Monocytes (%) (Auto) 9.5 % (0.0-12.0) Eosinophils (%) (Auto) 3.5 % (0.0-7.0) Basophils (%) (Auto) 1.0 % (0.0-2.0) Neutrophils # (Auto) 2.5 10 ^3/uL (1.6-8.6) Lymphocytes # (Auto) 1.4 10 ^3/uL (0.4-5.4) Monocytes # (Auto) 0.4 10 ^3/uL (0-1.3) Eosinophils # (Auto) 0.2 10 ^3/uL (0-0.8) Basophils # (Auto) 0 10 ^3/uL (0-0.2) Nucleated Red Blood Cells 0.1 % Sodium Level 141 mmol/L (136-145) Potassium Level 4.1 mmol/L (3.5-5.1) Chloride Level 108 mmol/L (98-107) Carbon Dioxide Level 27 mmol/L (20-31) Anion Gap 6 (5-15) Blood Urea Nitrogen 17 mg/dL (9-23) Creatinine 1.15 mg/dL (0.550-1.02) Glomerular Filtration Rate Calc 54 mL/min (>90) BUN/Creatinine Ratio 14.8 (10.0-20.0) Serum Glucose 85 mg/dL (74-106) Calcium Level 9.2 mg/dL (8.7-10.4) Prothrombin Time 10.4 sec (9.3-11.8) Prothrombin Time INR 0.98 (0.9-1.15) Activated Partial Thromboplast Time 30.6 SEC (24.5-34.5) Hepatitis B Surface Antigen Negative (Negative) Hepatitis C Antibody Negative (Negative) Triglycerides Level 93 mg/dL (< 150) Cholesterol Level 179 mg/dL (< 200) LDL Cholesterol 100 mg/dL (< 100) HDL Cholesterol 68 mg/dL (40-59) Test 05/20/25 00:00 05/19/25 17:35 05/19/25 16:50 05/19/25 16:00 Urine Color Brown (Yellow) Urine Clarity Ex.turbid (Clear) Urine pH 5.5 (5.0-9.0) Urine Specific [place] 1.015 (1.001-1.035) Urine Protein 1+ (Negative) Urine Ketones Negative (Negative) Urine Blood 3+ /uL (Negative) Urine Nitrite Negative (Negative) Urine Bilirubin Negative (Negative) Urine Urobilinogen Normal mg/dL (Negative) Urine Leukocyte Esterase 3+ /uL (Negative) Urine RBC 195 /hpf (0 - 4) Urine WBC Clumps Present /hpf (None Seen) Urine Microscopic WBC 3666 /HPF (0-5) Urine Squamous Epithelial Cells Mod /hpf (<5) Urine Bacteria Few /hpf (None Seen) Urine Mucus Few (None Seen) Urine Glucose Normal mg/dL (Normal) Troponin I High Sensitivity 5 ng/L (</=34) Lactic Acid Level 1.2 mmol/L (0.4-2.0) Total Bilirubin 0.7 mg/dL (0.2-1.0) Aspartate Amino Transferase (AST) 17 U/L (13-40) Alanine Aminotransferase (ALT) 26 U/L (7-40) Alkaline Phosphatase 78 U/L (46-116) B-Type Natriuretic Peptide 31.67 pg/mL (0-100) Total Protein 6.8 g/dL (5.7-8.2) Albumin 4.7 g/dL (3.2-4.8) Lipase 43 U/L (12-53) Other Laboratory Tests 05/22/25 05:24 Brief Hx & Hospital Course: Patient is a 59-year-old female with past medical history of HFrEF with EF of 30%, phlebitis, lupus which was diagnosed last year,and recurrent UTI since 1 year who came to the ED with chief complaints of 10/10 pain in epigastric and right upper quadrant which radiates to the back that started yesterday morning and gradually became unbearable. She also stated that the back pain was constant for 1 month. Patient has history of chest pain mostly when she becomes bradycardic. She had multiple recurrent UTIs since 1 year and has used Macrobid multiple times her recent UTI was 1 and half week ago, she states she had a cystoscopy 2 weeks ago. She also complains of shortness of breath which is ongoing since last year. Patient denied any vomiting, diarrhea, constipation. Brief hospital course Patient came to the ED with chief complaints of epigastric and right upper quadrant pain probably due to symptomatic cholecystitis, CT abdomen showed Moderately distended gallbladder with a few small gallstones near the gallbladder neck. Recommend further evaluation with right quadrant ultrasound. HIDA scan showed Unremarkable hepatobiliary study without evidence of acute cholecystitis. Ultrasound showed Cholelithiasis and gallbladder sludge without evidence of acute cholecystitis. Hepatic steatosis. Surgery was consulted. For chronic HFrEF with no exacerbation, hyperlipidemia her last echo shows 30%, furosemide 40 mg, Entresto pool, Lipitor 40 continued. Patient was advised to follow-up with cardiology outpatient. Patient had acute complicated UTI with urinalysis showing signs of UTI and IV ceftriaxone was given. CT abdomen showed A 15 mm calculus in the left renal pelvis with moderate left renal calyceal dilation and severe left renal cortical thinning, likely due to chronic obstruction. Moderate cortical thinning of the right kidney with 8 mm nonobstructing right renal calculus. Urology was consulted and stated that they will obtain a renal scan to r/o obstruction and determine differential function. Given pt is comfortable and renal function in preserved there is no urgent need for nephrostomy placement. Ultimately will need right ESWL as outpt. Left stone management TBD after renal scan has been done. If function greater than 20% intervention to be arranged on outpt basis as well. IV fluids, tamsulosin was given. For patient's obesity BMI 42.9, she was advised lifestyle modifications, weight loss, dash diet, cardiac diet. Patient wanted to leave the hospital Against Medical Advice (AMA). Patient encouraged to stay for further treatment/stabilization. Patient advised of the risks and benefits of leaving AMA. Patient verbalized understanding. Patient encouraged to return to the ER if symptoms do not improve or worsen. Operations or Procedures ORDERING PHYSICIAN: RIGOBERTO COLIN PAC PROCEDURE(s): ABPL - CT AB PEL WO CON-NO ORAL OR IV REASON: Right upper quadrant pain ORDER NUMBER(s): [id number], ACCESSION NUMBER(s): [id number] EXAM DESCRIPTION: CT CT AB PEL WO CON-NO ORAL OR IV CLINICAL HISTORY: Right upper quadrant pain COMPARISON: None TECHNIQUE: CT abdomen and pelvis without IV contrast was performed. Coronal and sagittal MPR images were generated.CTDI/ DLP = 27.88 / 3.92 Dose reduction technique with one or more of the following methods was performed: Automated exposure control, adjustment of the mA and/or kV according to patient size, use of iterative reconstruction technique FINDINGS: Lower chest: Clear lung bases. Liver: Homogenous in attenuation. . Biliary: Moderately distended gallbladder with a few small gallstones near the gallbladder neck. No biliary ductal dilatation. Pancreas: No fat stranding or focal lesion. Spleen: Normal in size.. Adrenal glands: No nodularity. No nodularity Kidneys: 8 mm calculus in the right kidney. No right-sided hydronephrosis. 15 mm calculus in the left renal pelvis with moderate left renal calyceal dilation. There is severe cortical thickening of the left kidney and moderate cortical thickening of the right kidney. There is mild stranding around the left renal pelvis stone. No hydroureteronephrosis. . Bladder: Underdistended, limiting evaluation. Reproductive organs: Normal. Bowel: No bowel wall thickening or dilatation. Colonic diverticulosis without evidence of diverticulitis. Normal appendix.. Peritoneum: No free fluid. No free air. Vessels: Normal caliber abdominal aorta. Moderate atherosclerotic calcifications.. Lymph nodes: No suspicious lymph nodes. Soft tissues: Unremarkable. . Osseous structures: No acute fracture or subluxation. No suspicious osseous lesions. Degenerative changes of the visualized thoracolumbar spine. IMPRESSION: 1. Moderately distended gallbladder with a few small gallstones near the gallbladder neck. Recommend further evaluation with right quadrant ultrasound. 2. A 15 mm calculus in the left renal pelvis with moderate left renal calyceal dilation and severe left renal cortical thinning, likely due to chronic obstruction. 3. Moderate cortical thinning of the right kidney with 8 mm nonobstructing right renal calculus. 4. Moderate atherosclerotic vascular disease. ORDERING PHYSICIAN: RIGOBERTO COLIN PAC PROCEDURE(s): ABDL - ABDOMEN LIMITED REASON: Right upper quadrant/gallbladder evaluation ORDER NUMBER(s): [id number], ACCESSION NUMBER(s): [id number] EXAM DESCRIPTION: US ABDOMEN LIMITED CLINICAL HISTORY: Right upper quadrant/gallbladder evaluation COMPARISON: CT CT AB PEL WO CON-NO ORAL OR IV on DOS: 05/19/25, US RT LOWER DVT on DOS: 09/23/24 TECHNIQUE: Using real-time ultrasonography multiple images of the abdomen were obtained. FINDINGS: The liver measures 16.7 cm. No focal liver masses. The liver is diffiusely increased in echongenicity. The pancreas is obscured by shadowing bowel gas. Stones and sludge in the gallbladder. No gallbladder wall thickening. No pericholecystic fluid. Negative sonographic Vaz sign. The common bile duct measures 6 mm in diameter. There is no free intraperitoneal fluid. The right kidney measures 13.1 cm. The left kidney measures 14.2cm, but is not well visualized. 8mm right renal calculus. IMPRESSION: 1. Cholelithiasis and gallbladder sludge without evidence of acute cholecystitis. 2. Hepatic steatosis. 3. An 8 mm right renal calculus. ----- ORDERING PHYSICIAN: ALETA SCHULTE PROCEDURE(s): GBNM - NM HIDA SCAN REASON: r/o cholecystitis ORDER NUMBER(s): [id number], ACCESSION NUMBER(s): [id number] Procedure: NM NM HIDA SCAN Exam Date: 05/20/2025 01:23 PM Clinical History: r/o cholecystitis Comparison Study: CARDIOLITE MULTIPLE on DOS: 09/18/21 Nuclear Medicine Hepatobiliary Scan. Technique: Following the intravenous administration of 6.3 mCi of technetium 99m labeled Choletec multiple planar abdominal planar images were obtained in anterior projection in 5 minute intervals for45 minutes . Right lateral images were obtained at 45 minutes after injection. Findings: The liver appears grossly normal in size. There is no abnormal persistence of the cardiac or blood pool activity. There is prompt visualization of the gallbladder and excretion of activity into the small bowel. Impression: Unremarkable hepatobiliary study without evidence of acute cholecystitis. Condition at Discharge: Good Final Diagnosis/Problems List # Chronic HFrEF with no exaerbation - NYNA class 2 # hyperlipidemia # Acute complicated UTI # 8 mm nonobstructing right renal calculus. # 15 mm calculus in the left renal pelvis # obesity- BMI 42.9 Discharge Disposition: AMA Discharge Instruct/Medications Scheduled Amiodarone HCl (Amiodarone HCl), 200 MG PO Q12HR Atorvastatin Calcium (Atorvastatin Calcium), 20 MG PO HS Empagliflozin (Jardiance), 10 MG PO DAILY Furosemide (Furosemide), 40 MG PO DAILY Hydroxychloroquine Sulfate (Hydroxychloroquine Sulfat), 1 TAB PO DAILY, (Reported) Isosorbide Mononitrate (Isosorbide Mononitrate ER), 30 MG PO DAILY Metoprolol Succinate (Toprol Xl), 25 MG PO BID Nitrofurantoin Monohydrate Mac (Macrobid), 100 MG PO BID Omeprazole (Omeprazole Dr), 1 CAP PO DAILY, (Reported) Ranolazine (Ranolazine ER), 1 TAB PO BID, (Reported) Sacubitril-Valsartan (Entresto 24-26 mg), 0.5 TAB PO BID Semaglutide (Ozempic), 0.5 MG SC QWEEKLY, (Reported) Spironolactone (Spironolactone), 25 MG PO DAILY, (Reported) Spironolactone (Aldactone), 12.5 MG PO DAILY Discontinued Medications Aspirin (Aspirin Low Dose), 81 MG PO DAILY, (Reported) Discharge Statement: "Patient was advised to return to the ER or call 911 if any headaches, dizziness, shortness of breath, chest pain, abdominal pain, bleeding, fevers, or worsening of medical condition. Patient was counseled about treatment plan, medications, possible side effects, patientverbalized understanding. All questions were answered to the best of my ability. This discharge took greater then 30 minutes in planning, reviewing documentation, counseling the patient, and discussing with other team members." ASSESSMENT ASSESSMENT Assessment TELLO STUART RESIDENT May 22, 2025 20:01
== END 2025-05-22 06:20 | disposition left against medical advice (07) | DRG 445 ==
LOC: ER 15:24 → OVERFLOW 22:39 → EAST 05-20 01:25
PROVIDERS: ADMIT Student in an Organized Health Care Education/Training Program; ATTEND Student in an Organized Health Care Education/Training Program
DX: K80.20 Calculus of gallbladder without cholecystitis without obstruction (principal); I50.22 Chronic systolic (congestive) heart failure; N17.9 Acute kidney failure, unspecified; N39.0 Urinary tract infection, site not specified; Z68.41 Body mass index [BMI] 40.0-44.9, adult; N20.0 Calculus of kidney; Z53.29 Procedure and treatment not carried out because of patient's decision for other reasons; E78.5 Hyperlipidemia, unspecified; E66.01 Morbid (severe) obesity due to excess calories; F17.210 Nicotine dependence, cigarettes, uncomplicated; K82.8 Other specified diseases of gallbladder; K76.0 Fatty (change of) liver, not elsewhere classified; N26.1 Atrophy of kidney (terminal); I11.0 Hypertensive heart disease with heart failure; Z88.0 Allergy status to penicillin; Z79.4 Long term (current) use of insulin; Z79.82 Long term (current) use of aspirin; Z79.899 Other long term (current) drug therapy; Z98.891 History of uterine scar from previous surgery; Z80.52 Family history of malignant neoplasm of bladder; Z80.3 Family history of malignant neoplasm of breast
CPT/HCPCS: 36415; 74176; 76705; 78226; 80048; 80053; 80061; 81001; 83605; 83690; 83880; 84484; 85025; 85610; 85730; 86803; 86850; 86900; 86901; 87086; 87340; 93005; 96365; 96375; G0378; J2405; J2470